=== PATIENT | male | born 1965 | race Caucasian/White ===

== ENCOUNTER → 2020-03-26 10:59 | Outpatient (CLI) | payer OTHER, SELFPAY ==
--- NOTE | ~2020-03-26 | MR_ITS ---
EXAMINATION: MR brain/brain stem wo/w con DATE: 03/26/2020 11:42 INDICATION: Atrophy of bilateral leg muscles. Left foot drop. TECHNIQUE: Magnetic resonance imaging (MRI) of the brain and brainstem was performed without and with 19 mL MultiHance intravenous contrast. Sequences included sagittal and axial T1-weighted FSE, axial diffusion-weighted FS EPI, axial T2*-weighted GRE, axial T2-weighted FLAIR Propeller, and axial T2-we ighted Propeller. Postcontrast sequences included axial and coronal T1-weighted FSE. Apparent diffusi on coefficient (ADC) maps were created. COMPARISON: None. FINDINGS: There are old lacunar infarcts in the bilateral basal ganglia. There is an old infarct invo lving anterior body of corpus callosum. There are scattered areas of nonspecific increased T2-weighte d signal intensity in the cerebral white matter. There is no intracranial hemorrhage, acute infarctio n, or abnormal intracranial mass lesion. There is mild mucosal thickening in the paranasal sinuses. T he orbits are normal. The mastoid air cells are normal. IMPRESSION: 1. 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 2. Mild nonspecific cerebral white matter disease, which likely represents chronic small vessel ische court disease. Reviewed, dictated and finalized at location A. IMPRESSION: 1. Old infarcts involving the bilateral basal ganglia and anterior body of ella us callosum. 2. Mild nonspecific cerebral white matter disease, which likely represents slps albina small vessel ischemic disease.
[2020-03-26 11:22] LABS: Estimated Glomerular Filt Rate 42
== END ==
PROVIDERS: PCP Student in an Organized Health Care Education/Training Program; Visit Provider Student in an Organized Health Care Education/Training Program
DX: M62.562 Muscle wasting and atrophy, not elsewhere classified, left lower leg (principal); G62.9 Polyneuropathy, unspecified; M21.372 Foot drop, left foot; M62.561 Muscle wasting and atrophy, not elsewhere classified, right lower leg; R29.2 Abnormal reflex; Z86.73 Personal history of transient ischemic attack (TIA), and cerebral infarction without residual deficits; R90.82 White matter disease, unspecified
CPT/HCPCS: 70553; A9577

== ENCOUNTER → 2020-07-24 09:54 | Outpatient (CLI) | payer OTHER, SELFPAY ==
--- NOTE | ~2020-07-24 | MR_ITS ---
EXAMINATION: MR lumbar spine wo [facility] EXAM DATE: 07/24/2020 11:09 INDICATION: Low back pain. TECHNIQUE: Multi-sequential, multiplanar MR images of the lumbar spine were obtained without contrast . Sagittal T1, T2, T2 fat saturation images. Axial T2 weighted images. There is no prior study for comparison. FINDINGS: There is mild to moderate disc disease L3-L5. The conus medullaris terminates at the L1/2 l evel and has normal signal intensity and morphology. There are some degenerative endplate signal hernández ges L4-5. There are no suspicious focal vertebral signal abnormalities identified. Paraspinal soft t issue is unremarkable. Level by level evaluation: T12-L1: Disc does not extend beyond the endplate margin. Facet arthropathy: Mild. Neural foraminal stenosis: No stenosis. Central canal stenosis: No stenosis. L1-L2: Disc does not extend beyond the endplate margin. Facet arthropathy: Mild. Neural foraminal stenosis: No stenosis. Central canal stenosis: No stenosis. L2-L3: There is a minimal diffuse disc bulge. Facet arthropathy: Mild to moderate. Neural foraminal stenosis: No stenosis. Central canal stenosis: No stenosis. L3-L4: There is a mild to moderate diffuse disc bulge. Facet arthropathy: Mild to moderate. Neural foraminal stenosis: Mild left. Central canal stenosis: Mild. L4-L5: There is a mild to moderate diffuse disc bulge. Facet arthropathy: Mild to moderate. Neural foraminal stenosis: Mild to moderate bilateral. Central canal stenosis: Mild to moderate. L5-S1: There is a mild diffuse disc bulge. Facet arthropathy: Mild to moderate. Neural foraminal stenosis: Mild bilateral. Central canal stenosis: No stenosis. IMPRESSION: 1. Mild to moderate lumbar spondylosis. Reviewed, dictated and finalized at location B. ING LINE WORKER
--- NOTE | ~2020-07-24 | US_ITS ---
EXAMINATION: US carotid duplex BI DATE: 07/24/2020 11:55 INDICATION: Stroke. Subjective visual disturbance, vertigo, disturbance of skin sensation at the fing ers and lower legs and left hemiparesis. TECHNIQUE: Grayscale, color Doppler, and pulsed Doppler images of the cervical carotid arteries were obtained. The degree of vessel stenosis is placed in one of the following categories: normal, <50%, 5 0-69%, >=70% but less than near-occlusion, near-occlusion, or total occlusion. Note that percent sten osis relative to normal distal artery lumen diameter is indirectly measured from velocity measurement s as described by Tc, et al. Radiology 2003; 229:340-346. COMPARISON: None. FINDINGS: RIGHT: The right common carotid artery (CCA) peak systolic velocity (PSV) is 87 cm/s. The right internal car otid artery (ICA) PSV is 103 cm/s. The right ICA end-diastolic velocity (EDV) is 28 cm/s. The right I CA/CCA PSV ratio is 1.2. Grayscale and color Doppler images yield an estimate of <50% diameter reduct ion from plaque in the ICA. The external carotid artery (ECA) PSV is 93 cm/s. There is antegrade flow in the right vertebral artery. LEFT: The left CCA PSV is 90 cm/s. The left ICA PSV is 121 cm/s. The left ICA EDV is 27 cm/s. The left ICA/ CCA PSV ratio is 1.3. Grayscale and color Doppler images yield an estimate of <50% diameter reduction from plaque in the ICA. The ECA PSV is 80 cm/s. There is antegrade flow in the left vertebral artery . IMPRESSION: 1. <50% stenosis in the right internal carotid artery. 2. <50% stenosis in the left internal carotid artery. Reviewed, dictated and finalized at location A. T PREPARER
--- NOTE | ~2020-07-24 | XR_ITS ---
EXAMINATION: XR shoulder RT min 2V DATE: 07/24/2020 12:13 INDICATION: Right shoulder pain TECHNIQUE: AP internally and externally rotated, AP oblique externally rotated and axillary views of the right shoulder were obtained. COMPARISON: None FINDINGS: Normal alignment. No fracture. Mild right glenohumeral osteoarthritis with minimal nonuniform joint space narrowing and with small marginal osteophytes along the posterior rim of the glenoid. Acromiocl avicular joint space is relatively preserved. There is however loss of the normally more sharply defi kostas articular cortex at the head of the clavicle. 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 1.3 cm sclerotic lesion at the proximal metaphyseal region of the right humerus with location and appearance most consistent with an enchond alfred. Soft tissues are unremarkable. The visualized portions of the lungs are clear. IMPRESSION: Loss of the articular cortical margin of the lateral head of the right clavicle suspicious for distal clavicular osteolysis. Reviewed, dictated and finalized at location A. INVASIVE
--- NOTE | ~2020-07-24 | MR_ITS ---
EXAMINATION: MR cervical spine wo [facility] EXAM DATE: 07/24/2020 11:01 INDICATION: Neck pain neck pain . Left foot drop. TECHNIQUE: Multi-sequential, multiplanar MR images of the cervical spine were obtained without contra st. Axial T2, axial T2 MERGE sequence. Sagittal T1, T2, T2 fat saturation images also obtained. Th ere is no prior study for comparison. FINDINGS: There is mild disc disease C5-7. The vertebral bodies are aligned in the AP dimension. The spinal cord signal intensity and intrinsic morphology is normal. Cervicomedullary junction is normal in appearance. There are no suspicious marrow signal abnormalities. Paraspinal soft tissue is unrema rkable. Level by level evaluation: C2-C3: Disc does not extend beyond the endplate margin. Uncovertebral joint arthropathy: Mild bilateral. Facet joint arthropathy: Mild to moderate left, mild right. Neural foraminal stenosis: Mild left. Central canal stenosis: No stenosis. C3-C4: Disc does not extend beyond the endplate margin. Uncovertebral joint arthropathy: Mild bilateral. Facet joint arthropathy: Mild to moderate bilateral. Neural foraminal stenosis: Mild bilateral. Central canal stenosis: No stenosis. C4-C5: There is a minimal diffuse disc bulge. Uncovertebral joint arthropathy: Mild to moderate. Facet joint arthropathy: Mild to moderate. Neural foraminal stenosis: Mild to moderate. Central canal stenosis: No stenosis. C5-C6: There is a mild diffuse disc bulge. Uncovertebral joint arthropathy: Mild to moderate. Facet joint arthropathy: Moderate left, mild to moderate right. Neural foraminal stenosis: Moderate left, mild to moderate right. Central canal stenosis: Mild. C6-C7: There is a mild diffuse disc bulge. Uncovertebral joint arthropathy: Mild to moderate. Facet joint arthropathy: Mild to moderate. Neural foraminal stenosis: Mild bilateral. Central canal stenosis: Mild. C7-T1: There is a minimal diffuse disc bulge. Uncovertebral joint arthropathy: Mild bilateral. Facet joint arthropathy: Mild to moderate right, mild left. Neural foraminal stenosis: Mild left. Central canal stenosis: No stenosis. IMPRESSION: Mild to moderate cervical spondylosis. Reviewed, dictated and finalized at location B. NICAL MANAGER
== END ==
PROVIDERS: PCP Nurse Practitioner Family; Visit Provider Internal Medicine Rheumatology
DX: M25.512 Pain in left shoulder (principal); M25.511 Pain in right shoulder; M47.815 Spondylosis without myelopathy or radiculopathy, thoracolumbar region; M47.817 Spondylosis without myelopathy or radiculopathy, lumbosacral region; M48.07 Spinal stenosis, lumbosacral region; M47.813 Spondylosis without myelopathy or radiculopathy, cervicothoracic region; M48.03 Spinal stenosis, cervicothoracic region; Z86.73 Personal history of transient ischemic attack (TIA), and cerebral infarction without residual deficits
CPT/HCPCS: 72141; 72148; 73030; 93880

== ENCOUNTER 2020-08-20 11:35 | Inpatient (IN) | payer OTHER, SELFPAY ==
[2020-08-20] VITALS (29 sets, daily range): BP systolic 134–182; BP diastolic 48–89; PULSE 102–129; RESP 18–35; TEMP 37.3–38.1; O2SAT 88–98; BMI 25.9
--- NOTE | ~2020-08-20 | US_ITS ---
EXAMINATION: US venous doppler LE RT DATE: 08/21/2020 09:23 INDICATION: Right lower limb edema. TECHNIQUE: Grayscale ultrasound images without and with compression and Doppler ultrasound images of the right lower extremity veins were obtained. COMPARISON: None. FINDINGS: The visualized portions of right common femoral vein, profunda (deep) femoral vein, femoral vein, pop liteal vein, peroneal veins, posterior tibial veins, and greater saphenous vein outflow are patent. IMPRESSION: 1. No deep venous thrombosis. Reviewed, dictated and finalized at location A. OSIVE OPERATOR BOMB
--- NOTE | ~2020-08-20 | XR_ITS ---
XR chest 1V portable DATE: 08/20/2020 17:37 INDICATION: Fever. Diabetes. Foot wound. Weakness. TECHNIQUE: Portable AP chest on 08/20/2020 at 1729 hours COMPARISON: None FINDINGS: Heart size is normal. No hilar or mediastinal enlargement. No pulmonary infiltrate or conso lidation, pleural effusion or pulmonary vascular congestion or pneumothorax. IMPRESSION: No active cardiopulmonary disease Reviewed, dictated and finalized at location A. VANCE AND APPEALS COORDINATOR
--- NOTE | ~2020-08-20 | US_ITS ---
EXAMINATION: US arterial duplex LE DATE: 08/21/2020 09:23 INDICATION: Bilateral foot ulcers TECHNIQUE: Multiple grayscale and Doppler ultrasound images of the arteries of the bilateral lower li mbs were obtained. COMPARISON: None FINDINGS: Right lower limb: Small amount of nonhemodynamically significant shadowing calcified plaque at the right common femoral artery on grayscale images. There are triphasic waveforms with brisk systolic upstrokes and relative ly smooth laminar flow in the right common femoral, profunda femoral and proximal to mid superficial femoral arteries. In the distal right superficial femoral artery there is a focus of soft plaque with acceleration of flow with peak systolic velocity measuring 187 cm/s immediately proximal to the sten osis and 310 cm/s immediately distal to the stenosis which does not quite reach the threshold velocit y doubling for 50% stenosis. There is more turbulent flow with spectral broadening and transition to monophasic waveforms but still with brisk systolic upstrokes at the right popliteal artery. The right posterior tibial artery appears occluded throughout its course. Monophasic waveforms with brisk syst olic upstrokes in the right dorsalis pedis artery. Left lower limb: Small amount of nonhemodynamically significant plaque at the left common femoral artery. There are bi phasic waveforms with brisk systolic upstrokes in the proximal to mid left superficial femoral artery . Triphasic waveforms with brisk systolic upstrokes throughout the remainder of the left lower limb i ncluding the common femoral, profunda femoral, distal superficial femoral, popliteal, posterior tibia l and dorsalis pedis arteries. IMPRESSION: 1. Focal near 50% stenosis in the distal right superficial femoral artery and occluded right posterio r tibial artery. 2. No hemodynamically significant stenosis in the left lower limb with triphasic waveforms with brisk systolic upstrokes extending distally into the posterior tibial and dorsalis pedis arteries. Reviewed, dictated and finalized at location B. Y TENDER IMPRESSION: 1. Focal near 50% stenosis in the distal right superficial femoral artery and o ccluded right posterior tibial artery. 2. No hemodynamically significant stenosis in the left lower limb with triphasi c waveforms with brisk systolic upstrokes extending distally into the posterior tibial and dorsalis pedis arteries.
--- NOTE | ~2020-08-20 | US_ITS ---
EXAMINATION: US renal BI DATE: 08/21/2020 09:22 INDICATION: Kidney failure. TECHNIQUE: Multiple ultrasound grayscale images of the kidneys were obtained. COMPARISON: Lumbar spine MRI 07/24/2020 FINDINGS: The right kidney measures 13.0 x 5.6 x 7.3 cm. The left kidney measures 12.4 x 6.3 x 6.7 cm. The kidn eys demonstrate normal parenchymal echogenicity. There is no hydronephrosis. The bladder is normal. IMPRESSION: 1. Normal kidneys. No hydronephrosis. Reviewed, dictated and finalized at location A. GHT BRAKE OPERATOR
--- NOTE | ~2020-08-20 | XR_ITS ---
EXAMINATION: XR foot RT min 3V EXAM DATE: 08/20/2020 12:32 INDICATION: Cellulitis. Right foot pain. TECHNIQUE: Right foot dorsoplantar, lateral and oblique projections obtained and reviewed. There is no prior study for comparison. FINDINGS: There is a bandage overlying the lateral aspect of the foot with ulceration. Deep to this, there is demineralization, erosion at the 5th metatarsal base, appearance is consistent with osteomye litis. Also, can't exclude pathological metatarsal base fracture. Phalanges are unremarkable. IMPRESSION: Right 5th metatarsal base osteomyelitis, and possible associated nondisplaced pathologic al fracture. Reviewed, dictated and finalized at location A. ORATE DEVELOPMENT INTERN IMPRESSION: Right 5th metatarsal base osteomyelitis, and possible associated n ondisplaced pathological fracture.
--- NOTE | ~2020-08-20 | US_ITS ---
EXAMINATION: US arterial ankle brachial ind EXAM DATE: 08/20/2020 13:28 INDICATION: Peripheral arterial disease. Macro Arterial Lower TECHNIQUE: Segmental pressures and plethysmographic and Doppler waveforms of the brachial and lower e xtremity arteries were obtained. There is no prior study for comparison. FINDINGS: Right and left brachial artery pressures of 182 mm Hg and 171 mm Hg, respectively, are concordant (no rmal difference <= 30 mmHg). RIGHT LEG: The ankle-brachial index (ELODIA) is 0.99 (normal >= 0.9-1). The great toe-brachial index (TBI) is 0.50 (normal >= 0.65). The lower extremity ratios, segmental pressure gradients as follows; Dorsalis pedis: 0.99 (181 mmHg). Posterior tibial: 0.25 (45 mmHg). (Normal gradients <= 20-30 mmHg between adjacent levels on the same leg or the same levels on the two legs). Arterial waveforms are dampened and monophasic. LEFT LEG: The ankle-brachial index (ELODIA) is could not obtain (normal >= 0.9-1). The great toe-brachial index (TBI) is 1.09 (normal >= 0.65). The lower extremity ratios, segmental pressure gradients as follows; Dorsalis pedis: Could not obtain ( mmHg). Posterior tibial: Could not obtain ( mmHg). (Normal gradients <= 20-30 mmHg between adjacent levels on the same leg or the same levels on the two legs). Arterial waveforms are biphasic. IMPRESSION: 1. Right ankle-brachial index 0.99, normal. Dampened monophasic waveforms. 2. Left ankle-brachial index could not obtain. 3. High blood pressure, systolic up to 182 mmHg. Reviewed, dictated and finalized at location [facility]. [facility]
[2020-08-20 11:42] LABS: Glucose Point of Care > 500 (65-105)
--- NOTE | 2020-08-20 12:13 | ED.WEAKNESS ---
HPI - Weakness General Chief complaint: Weakness Stated complaint: WEAK [id number] Time Seen by Provider: 08/20/20 11:55 Source: patient Mode of arrival: ambulatory Limitations: clinical condition History of Present Illness HPI Narrative: 55-year-old male History of type 2 diabetes which he says he has been taking his medication for Complains of a 10 to 14-day history of generalized weakness Initially he reported a fever but that has been resolved for a while; he had a neg covid test Generalized weakness has been persistent and progressive however Additionally he has swelling and redness of his right foot which he notes began at about the same time with a blister and likewise has worsened; strangely he does not complain very much about pain in the foot He has had polyuria and polydipsia but a poor appetite He has had diarrhea MD Complaint: generalized weakness Onset (ago): day(s) Duration: progressively worsening Associated symptoms: fever/chills Related Data Allergies Allergy/AdvReac Type Severity Reaction Status Date / Time No Known Allergies Allergy Mild Verified 01/12/08 02:10 Review of Systems Review of Systems: All systems reviewed & are unremarkable except as noted in HPI and below Constitutional: Constitutional: Reports chills, Reports fatigue, Reports fever(s), Denies headache(s) and Reports weakness Eyes: Eyes: Reports no additional eye complaints and Denies change in vision ENT: Denies headache(s), Denies epistaxis, Denies nasal congestion and Denies sore throat Cardiovascular: Cardiovascular: Denies chest pain, Denies leg edema, Denies palpitations and Denies dyspnea Respiratory: Respiratory: Denies cough, Denies dyspnea and Denies wheezing Gastrointestinal: Gastrointestinal: Denies abdominal pain, Reports diarrhea, Reports nausea and Denies vomiting Genitourinary: Genitourinary: Denies hematuria, Denies dysuria and Denies urinary frequency Musculoskeletal: Musculoskeletal: Denies deformity, Reports arthralgias, Reports joint swelling, Denies muscle weakness and Denies numbness Integumentary/Breasts: Skin/Breast: Denies rash and Denies wounds Neurologic: Denies headache(s), Denies focal weakness and Denies numbness Psychiatric: Psychiatric: Reports no additional psychiatric complaints Endocrine: Endocrine: Reports fatigue and Denies palpitations Hematologic/Lymphatic: Hematologic/Lymphatic: Denies easy bleeding and Denies easy bruising Allergic/Immunologic: Allergic/Immunologic: Denies wheezing PMFSH Past Medical History Medical History (Updated 08/20/20 @ 16:19 by Joesph Lam MD) Arthritis of right knee Diabetes History of cardiac disorder Hypertension Testicular cyst Removed in the early Family History Family History Mother Colon cancer Father Diabetes mellitus ALS (amyotrophic lateral sclerosis) Social History Social History Smoking status: Former smoker Alcohol intake: current Drinks per week: 5 Substance use: never Gender identity (if verbalized by the patient): Male Exam Const: General: well developed, awake and ill appearing Nutritional Appearance: well nourished Orientation/consciousness: patient oriented x3 (alert) Limitations: no limitations HENMT: Head: normocephalic and atraumatic Ears: external ears normal General nose exam: No nasal discharge present and no epistaxis Face and sinus: face symmetric Eyes: Conjunctivae: conjunctivae normal Sclera: sclerae normal EOM: EOMs intact bilaterally Neck: Neck: normal visual inspection, supple and no JVD Chest: Chest palpation & inspection: deferred Resp: Effort & Inspection: normal respiratory effort Auscultation: clear to auscultation bilaterally, no rales, no rhonchi, no wheezes and other (BS =) Cardio: Rate: regular rate and tachycardic Rhythm: regular rhythm Hear
[2020-08-20] MEDS: LACTATED RINGERS 1,000 ML 999 ML IV CONT ×3 (12:17→15:10)
--- NOTE | 2020-08-20 12:20 | PC.NURSE ---
Able to dopple faint pedal pulse to right foot. Wound covered with ADDISON wilson.
[2020-08-20 12:43] LABS: Fractional Inspired Oxygen 21 %; HCO3 VBG 17.7 mEq/l (24.0-30.0); PO2 VBG 45.4 mmHg (35.0-45.0); pH VBG 7.421 (7.300-7.400)
[2020-08-20 12:46] LABS: Hemoglobin 7.9 g/dL (14.0-18.0); Mean Corpuscular HGB Conc 34.3 g/dl (32-36); Mean Corpuscular Hemoglobin 31.2 pg (26-34); Mean Corpuscular Volume 90.9 fl (80-100); Platelet Count Result 426 k/mm3 (150-375); Red Blood Count 2.53 M/mm3 (4.6-6.20); Red Cell Distribution Width 12.3 % (11.5-14.5); White Blood Count 26.2 K/mm3 (4.5-10.0)
[2020-08-20 12:46] LABS: Device ROOM AIR; PCO2 VBG 27.8 mmHg (42.0-48.0)
[2020-08-20] MEDS: ONDANSETRON INJ 4 MG/2 ML VIAL IV PUSH (12:46)
--- NOTE | 2020-08-20 12:46 | PC.NURSE ---
Blood cultures being obtained.
[2020-08-20 12:59] LABS: Lymphocytes Absolute Manual 0.78 K/mm3 (1.1-4.5); Monocytes Absolute Manual 0.78 K/mm3 (0.1-0.90); Monocytes Percent Manual 3 % (3-9); Neutrophils Percent Manual 94 % (46-73); Platelet Estimate Adequate (Adequate); Total Cells Counted 100
[2020-08-20 13:05] LABS: Alanine Aminotransferase 48 U/L (4-50); Albumin Level 3.4 g/dL (3.5-5.1); Alkaline Phosphatase 142 U/L (38-126); Anion Gap 13 mmol/L (8-16); Aspartate Amino Transferase 38 U/L (17-59); Bilirubin,Total 1.3 mg/dL (0.2-1.3); Blood Urea Nitrogen 30 mg/dL (9-20); CRP > 9.0 mg/dL (<1.0); Calcium 8.4 mg/dL (8.4-10.2); Carbon Dioxide 19 mmol/L (22-30); Chloride 89 mmol/L (98-107); Estimated CRCL calculation 54 ml/min; Estimated Glomerular Filt Rate 45; Glucose 597 mg/dL (75-110); Potassium 5.7 mmol/L (3.4-5.0); Sodium 121 mmol/L (137-145)
--- NOTE | 2020-08-20 13:08 | PC.NURSE ---
Pt to ultrasound via stretcher.
[2020-08-20 13:09] LABS: Beta-Hydroxybutyrate/Acetoacetate 2.39 mmol/L (0.02-0.27)
[2020-08-20 13:12] LABS: Troponin I 0.027 ng/mL (0.000-0.034)
[2020-08-20 13:13] LABS: Lactic Acid Reflex 1.8 mmol/L (0.7-2.1)
[2020-08-20 13:53] LABS: Erythrocyte Sedimentation Rate > 140 mm/hr (0-20)
[2020-08-20 14:12] LABS: Add Urine Microscopic? YES; Appearance Urine Clear (Clear); Bacteria Urine Trace /hpf; Bilirubin Urine Negative (Negative); Blood Urine 1+ (Negative); Color Urine Yellow (Yellow); Glucose Urine UA 3+ mg/dL (Negative); Ketones Urine 1+ mg/dL (Negative); Leukocyte Esterase Ur Negative LEU/UL (Negative); Mucus Urine Rare /lpf; Nitrate Urine Negative (Negative); Protein Urine 3+ mg/dL (Negative); RBC Urine 0-2 /hpf (0-2); Squamous Epithelial Cell Urine Rare /hpf (Few); Urobilinogen Urine Negative mg/dL (<2.0); WBC Urine 0-3 /hpf
[2020-08-20 14:26] LABS: Glucose Point of Care > 500 (65-105)
[2020-08-20] MEDS: INSULIN HUMAN REGULAR (*BKC) 100 UNITS/ML 10 UNITS IV PUSH (15:07)
[2020-08-20 16:19] LABS: Glucose Point of Care 460 (65-105)
--- NOTE | 2020-08-20 16:30 | PM.IMHP ---
H&P: HPI History of Present Illness Date/Time: 08/20/20 16:30 Chief Complaint: Weakness and right foot wound. Narrative: This is a 55-year-old male with diabetes, hypertension, chronic kidney disease, and anemia who presented to the emergency department earlier today via private vehicle from home for evaluation of weakness as well as a right foot wound. He has not felt well for 10 days with generalized malaise, decreased energy, decreased appetite, nausea, diarrhea, and fever up to 101.5?. Over the last week or so he noticed a blister on the lateral aspect of the right forefoot, which he thinks that he got from his shoes rubbing while working out at the gym. It has since popped and the area is now discolored and he has had malodorous drainage. He has also noticed a large bruise on his right 5th toe. He has not been experiencing any pain at the side of these wounds due to severe neuropathy. He has no prior history of diabetic foot wounds and also denies history of osteomyelitis and multidrug resistant organisms. No sinus congestion, rhinorrhea, otalgia, or odynophagia, or cough. No known history of peripheral vascular disease but it does sound as though he has intermittent claudication. Review of Systems Review of Systems: Narrative: Twelve systems were reviewed with pertinent positives and negatives as per HPI. No vertigo. He denies syncope in near-syncope. He has chronic left footdrop for which he did see a neurologist in [place] though never received any answers. He apparently had an MRI of his low back which showed nothing. 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 He denies blurry vision but has had some polydipsia. He has not noticed any significant change in urine output. No dysuria. Except as documented, all other systems were reviewed and are negative. [facility] Past Medical History Medical History (Updated 08/20/20 @ 23:38 by Sharee Graff PA-C) Arthritis of right knee Chronic anemia Chronic kidney disease History of colon polyps Hypertension Left foot drop Peripheral neuropathy Transient ischemic attack Type 2 diabetes mellitus Surgical History Surgical History (Updated 08/20/20 @ 23:31 by Sharee Graff PA-C) History of testicular surgery Benign mass removed from the right testicle. Family History Family History (Updated 08/20/20 @ 23:32 by Sharee Graff PA-C) Mother Colon cancer Father Diabetes mellitus ALS (amyotrophic lateral sclerosis) Acute myocardial infarction Daughter Pulmonary embolism Social History Social History (Updated 08/20/20 @ 23:33 by Sharee Graff PA-C) Social History: The patient lives alone in [place]. He has 1 daughter who lives in [place]. 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 Smoked 1.5 to 2 packs of cigarettes a day for about 38 years and quit in 2014. He drinks perhaps for alcoholic beverages a week. No illicit substance use. He designates his sister Elle Vann as his surrogate decision maker and he wishes to be a full code. Smoking packs per day: 1.5 Smoking cigarettes per day: 30.0 Years smoked: 25 Smoking pack-years: 37.50 Smoking status: Former smoker Tobacco type: cigarettes Smoking end date: 02/23/15 Alcohol intake: current Drinks per week: 4 Substance use: never Gender identity (if verbalized by the patient): Male Spiritual care concerns: No Meds Home Medications and Allergies Home Medications Medication Instructions Recorded Confirmed Type glipizide 10 mg PO DAILY 08/20/20 08/20/20 History hydrochlorothiazide 12.5 mg PO DAILY 08/20/20 08/20/20 History losartan 50 mg PO DAILY 08/20/20 08/20/20 History losartan 100 mg PO BID 08/20/20 08/20/20 History metformin 500 mg PO DAILY 08/20/20 08/20/20 History Allergies Allergy/AdvReac Type Severity Reaction Status Date / Time No Known Allergies Allergy
[2020-08-20 16:32] LABS: Anion Gap 7 mmol/L (8-16); Blood Urea Nitrogen 26 mg/dL (9-20); Carbon Dioxide 25 mmol/L (22-30); Chloride 90 mmol/L (98-107); Estimated CRCL calculation 54 ml/min; Estimated Glomerular Filt Rate 45; Glucose 494 mg/dL (75-110); Sodium 122 mmol/L (137-145)
[2020-08-20 17:30] LABS: Glucose Point of Care 486 (65-105)
--- NOTE | 2020-08-20 17:41 | PC.NURSE ---
Nathaly Graff aware of pt's blood sugar of 486. Gives verbal order for 10units novolog subcutaneous and to hold the regular insulin ivp at this time. Diet tray ordered for patient.
[2020-08-20] MEDS: SODIUM CHLORIDE 0.9% IV 1,000 ML 150 ML IV CONT (17:57)
--- NOTE | 2020-08-20 17:58 | PC.NURSE ---
Awaitiing arrival of diabetic tray prior to giving sub q insulin. JAVIER Andersen, aware of pt's temperature.
[2020-08-20] MEDS: INSULIN ASPART (*BKC) 100 UNITS/ML 10 UNITS SUB-Q (18:10)
--- NOTE | 2020-08-20 18:30 | PC.NURSE ---
Pt given dinner tray and novolog insulin as ordered. Awaiting bed assignment.
--- NOTE | 2020-08-20 18:49 | PC.NURSE ---
Bed assignment received, SBAR faxed.
--- NOTE | 2020-08-20 19:03 | PC.NURSE ---
Dr. Lam at bedside discussing plan of care.
--- NOTE | 2020-08-20 19:22 | PC.NURSE ---
JAVIER Luz at bedside for assessment.
--- NOTE | 2020-08-20 19:56 | ADMGEN ---
This patient, Handy Potts, was admitted to IMU Room 206-02, pt arrived at approximately 1954. Patient/family oriented to hospital policies and general routines including ID bracelet, bed and alarms, visiting hours, pain management, procedures, bathroom and other care routines, personal items, smoking policy, room service/diet, and visiting hours. Information on how to activate the Rapid Response Team has been discussed. Patient/Family are encouraged to report perceived risks to care and to ask questions if they do not understand what they are told or what they should do. Received report from ADEEL Cervantes.
[2020-08-20 20:57] LABS: Glucose Point of Care 469 (65-105)
[2020-08-21] VITALS (16 sets, daily range): BP systolic 125–156; BP diastolic 56–71; PULSE 90–115; RESP 18–26; TEMP 36.1–37.7; O2SAT 97–100; BMI 26.0
[2020-08-21 00:03] LABS: INR 1.4; Immature Reticulocyte Fraction 20.9 % (3.0-15.9); Prothrombin Time 17.7 Seconds (11.1-14.7); Reticulocyte Hemoglobin Conten 28.1 pg (28.2-35.7); Reticulocyte Percent 1.54 % (0.7-4.3); Reticulocytes Absolute 0.03 B/L (32.2-175.7)
[2020-08-21 00:04] LABS: Partial Thromboplastin Time 35.9 SECONDS (22.3-36.8)
[2020-08-21 00:13] LABS: Anion Gap 5 mmol/L (8-16); Blood Urea Nitrogen 29 mg/dL (9-20); Calcium 7.8 mg/dL (8.4-10.2); Carbon Dioxide 27 mmol/L (22-30); Chloride 90 mmol/L (98-107); Creatine Kinase 169 U/L (55-170); Estimated CRCL calculation 51 ml/min; Estimated Glomerular Filt Rate 42; Glucose 419 mg/dL (75-110); Potassium 5.6 mmol/L (3.4-5.0); Sodium 122 mmol/L (137-145)
[2020-08-21 00:49] LABS: Hemoglobin A1C 9.3 % (<5.7)
[2020-08-21 01:20] LABS: Folic Acid 18.1 ng/mL (2.76->20)
[2020-08-21] MEDS: SODIUM CHLORIDE 0.9% IV 1,000 ML 150 ML IV CONT ×2 (01:28→08:05)
[2020-08-21 05:18] LABS: Anion Gap 6 mmol/L (8-16); Blood Urea Nitrogen 27 mg/dL (9-20); Calcium 7.5 mg/dL (8.4-10.2); Carbon Dioxide 27 mmol/L (22-30); Chloride 89 mmol/L (98-107); Estimated CRCL calculation 51 ml/min; Estimated Glomerular Filt Rate 42; Glucose 430 mg/dL (75-110); Magnesium 1.7 mg/dL (1.6-2.3); Potassium 5.5 mmol/L (3.4-5.0); Sodium 122 mmol/L (137-145)
[2020-08-21 05:19] LABS: Basophils Absolute Auto 0.1 K/mm3 (0.0-0.1); Basophils Percent Auto 0.2 % (0.2-1.2); Eosinophils Percent Auto 0.1 % (0-4.4); Immature Granulocyte Absolute 0.45 K/mm3 (0.00-0.031); Immature Granulocyte Percent A 2.2 % (0-0.5); Lymphocytes Absolute Auto 0.77 K/mm3 (0.9-3.2); Lymphocytes Percent Auto 3.8 % (18.3-44.2); Mean Corpuscular HGB Conc 33.5 g/dl (32-36); Mean Corpuscular Hemoglobin 31.1 pg (26-34); Mean Corpuscular Volume 92.9 fl (80-100); Mean Platelet Volume 9.7 fl (7.4-10.4); Monocytes Absolute Auto 1.1 K/mm3 (0.1-0.6); Monocytes Percent Auto 5.4 % (2.6-8.5); Neutrophils Percent Auto 88.3 % (45.5-73.1); Platelet Count Result 388 k/mm3 (150-375); Red Blood Count 2.12 M/mm3 (4.6-6.20); Red Cell Distribution Width 12.6 % (11.5-14.5); White Blood Count 20.4 K/mm3 (4.5-10.0)
[2020-08-21 06:40] LABS: Hemoglobin 6.6 g/dL (14.0-18.0)
[2020-08-21 06:41] LABS: Hematocrit 19.7 % (42.0-52.0)
[2020-08-21 07:33] LABS: Iron 16 ug/dL (49-181)
[2020-08-21 07:51] LABS: Percent Iron Saturation 10 % (20-50)
--- NOTE | 2020-08-21 08:21 | PM.CNCAR ---
Assessment and Plan Assessment and plan (1) Diabetic foot infection: Code(s): E11.628 - Type 2 diabetes mellitus with other skin complications; L08.9 - Local infection of the skin and subcutaneous tissue, unspecified Status: Acute Assessment and Plan: ELODIA is normal and his ulcer is likely diabetic with neuropathy. Will obtain arterial duplex to confirm no significant PVD He has gangrene of the toe as well. Will get 2D echo to rule out embolic source. No history of A fib and he is currently in sinus rhythm (2) Sepsis: Code(s): A41.9 - Sepsis, unspecified organism Status: Acute (3) Diabetes: Code(s): E11.9 - Type 2 diabetes mellitus without complications Status: Acute History of Present Illness History of Present Illness Consult date/time: 08/21/20 08:21 55-y/o male with h/o HTN, DM, CKD who presented with right foot wound. He noticed a blister on the lateral aspect of the right forefoot and the area is now discolored and he has had malodorous drainage. in ER he was found to be septic with fever and leukocytosis. He was started on imperic Abx and received IV fluids. He also has gangrenous changes on the right 5th toe. He does not remember when that started. Xray shows osteomyelitis of the toe. We are consulted for evaluation of PVD as potential cause of ulcer. He had normal ELODIA on the right side. Patient denies any cardiac history. He was evaluated at [facility] ~2018 with stress test that was abnormal however subsequent [facility] per patient report was normal and no stents were placed. He has known peripheral neuropathy. He denies chest pain or dyspnea. No EKG in chart. He is on sinus rhythm on tele Denies tobacco abuse. Reason For Visit: uncontrolled diabetes, diabetic foot ulcer, Review of Systems Review of Systems: All systems reviewed & are unremarkable except as noted in HPI and below PMFSH Past Medical History Medical History (Updated 08/21/20 @ 08:51 by Roman Bruner MD) Arthritis of right knee Chronic anemia Chronic kidney disease History of colon polyps Hypertension Left foot drop Peripheral neuropathy Transient ischemic attack Type 2 diabetes mellitus Surgical History Surgical History (Updated 08/20/20 @ 23:31 by Sharee Graff PA-C) History of testicular surgery Benign mass removed from the right testicle. Family History Family History (Updated 08/20/20 @ 23:32 by Sharee Graff PA-C) Mother Colon cancer Father Diabetes mellitus ALS (amyotrophic lateral sclerosis) Acute myocardial infarction Daughter Pulmonary embolism Social History Social History (Updated 08/20/20 @ 23:33 by Sharee Graff PA-C) Social History: The patient lives alone in [place]. He has 1 daughter who lives in [place]. 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 Smoked 1.5 to 2 packs of cigarettes a day for about 38 years and quit in 2014. He drinks perhaps for alcoholic beverages a week. No illicit substance use. He designates his sister Elle Vann as his surrogate decision maker and he wishes to be a full code. Smoking packs per day: 1.5 Smoking cigarettes per day: 30.0 Years smoked: 25 Smoking pack-years: 37.50 Smoking status: Former smoker Tobacco type: cigarettes Smoking end date: 02/23/15 Alcohol intake: current Drinks per week: 4 Substance use: never Gender identity (if verbalized by the patient): Male Spiritual care concerns: No Meds Home Medications and Allergies Home Medications Medication Instructions Recorded Confirmed Type glipizide 10 mg PO DAILY 08/20/20 08/20/20 History hydrochlorothiazide 12.5 mg PO DAILY 08/20/20 08/20/20 History losartan 50 mg PO DAILY 08/20/20 08/20/20 History losartan 100 mg PO BID 08/20/20 08/20/20 History metformin 500 mg PO DAILY 08/20/20 08/20/20 History Allergies Allergy/AdvReac Type Severity Reaction Status Date / Time No Known Allergies Allergy Mild Verified
--- NOTE | 2020-08-21 08:43 | ECHO_ITS ---
Patient Info Name: Handy Potts Age: 55 years : 1965 Gender: Male Ht: 74 in Wt: 203 lbs BSA: 2.20 m2 HR: 96 bpm BP: 145 / 62 mmHg Heart Rhythm: Sinus Rhythm Technical Quality: Good Exam Date: 08/21/2020 11:44 AM Exam Location: [facility] Patient Status: Inpatient Admit Date: 08/20/2020 Staff Ordering Physician: Roman Bruner MD (trey/ting) Fire Marshal: Esau Paulson RDCS Attending Provider: Thaddeus Yarbrough MD Exam Type: CA echo dop color flow w con Study Info Indications R65.21 - Severe sepsis with septic shock Complete two-dimensional, color flow and Doppler transthoracic echocardiogram is performed with contrast to opacify the left ventricle and to improve the deliniation of the left ventricle endocardial borders. Contrast/Agitated Saline Contrast/Ag. Saline: Definity Amount: 2.00 ml Administered By: Rose Marie Johnson RN Existing IV Access: Yes History/Risk Factors Sepsis; uncontrolled DM w/ diabetic foot ulcer, HTN. Summary 1. Technically difficult study with limited views. 2. Left ventricular chamber dimension is normal. 3. Left ventricular wall thickness is mildly increased. 4. Left ventricular systolic function is normal with an ejection fraction by Biplane Method of Discs of 51 %. 5. There is trivial pericardial effusion. Left Ventricle Left ventricular chamber dimension is normal. Left ventricular wall thickness is mildly increased. Left ventricular systolic function is normal with an ejection fraction by Biplane Method of Discs of 51 %. Normal diastolic function for age. Right Ventricle Right ventricular chamber dimension is normal. Right ventricular systolic function is normal. Ventricular Septum Intact interventricular septum visualized by 2D imaging. Left Atria Left atrial chamber dimension is mildly enlarged. Right Atria Right atrial chamber dimension is normal. Aortic Valve Aortic valve is not well visualized. There is mild aortic valve sclerosis. There is no aortic valve stenosis. There is no aortic valve regurgitation. Pulmonic Valve Pulmonary valve is not well visualized. There is no pulmonic valve stenosis. There is trace pulmonic regurgitation. Mitral Valve Mitral valve is not well visualized. There is mild mitral valve regurgitation. There is no mitral valve stenosis. The mitral valve has thickened leaflets. Tricuspid Valve The tricuspid valve is not well visualized. There is no significant tricuspid valve stenosis. There is trace tricuspid valve regurgitation. Pericardium/Pleural There is trivial pericardial effusion. Inferior Vena Cava Normal inferior vena cava with >50% collapse upon inspiration consistent with normal right atrial pressure, 5 mmHg. Aorta The aortic root size at the sinus of Valsalva is normal. Left Ventricular Outflow Tract Name Value Normal LVOT 2D LVOT Diameter 2.10 cm LVOT Doppler LVOT Peak Gradient 4 mmHg LVOT Mean Gradient 2 mmHg LVOT VTI
[2020-08-21 08:56] LABS: Glucose Point of Care 439 (65-105)
[2020-08-21] MEDS: SODIUM POLYSTYRENE SULFONONATE 15 GM/60 ML BTL PO (10:18)
[2020-08-21] MEDS: INSULIN GLARGINE (*BKC) 100 UNITS/ML 25 UNITS SUB-Q (10:24)
[2020-08-21] MEDS: INSULIN ASPART (*BKC) 100 UNITS/ML SUB-Q ×2 (10:25→10:33)
[2020-08-21] MEDS: SODIUM CHLORIDE 0.9% IV 250 ML 30 ML IV CONT (11:10)
[2020-08-21] MEDS: PERFLUTREN LIPID MICROSPHERES 1.5 ML VIAL DILUTED TO 10 ML TOTAL VOLUME IV PUSH (12:00)
[2020-08-21 13:28] LABS: Glucose Point of Care > 500 (65-105)
[2020-08-21] MEDS: TUBING, BLOOD PLUM PUMP TUBING 1 EACH XX (14:06)
[2020-08-21] MEDS: INSULIN ASPART (*BKC) 100 UNITS/ML 25 UNITS SUB-Q (14:11)
[2020-08-21] MEDS: INSULIN HUMAN REGULAR (*BKC) 100 UNITS/ML 10 UNITS IV PUSH (14:11)
--- NOTE | 2020-08-21 14:13 | PCNSR ---
On 08/21/20, the student, Chelle Quintero, provided care and completed [id number] documentation on this patient. I have reviewed the student's documentation and agree with the findings.
--- NOTE | 2020-08-21 14:27 | PM.CNGS ---
Assessment and Plan Assessment and plan (1) Osteomyelitis of fifth toe of right foot: Code(s): M86.9 - Osteomyelitis, unspecified Status: Acute Assessment and Plan: The patient presents with an infected right diabetic foot ulcer and evidence of osteomyelitis in the right 5th metatarsal base. This appears to be the source of his sepsis. There is also mention of possible associated nondisplaced pathological fracture on the right foot x-ray, and he has evidence of gangrene of the right 5th toe. On exam, he does appear to have peripheral vascular disease, which is supported by the arterial duplex study. There is focal near 50% stenosis in the distal right superficial femoral artery and occluded right posterior tibial artery. He does not have acute limb ischemia, but with his peripheral arterial disease, he would benefit from vascular evaluation prior to proceeding with debridement. I spoke with the Hospitalist regarding consulting with the Vascular Surgery team at [facility] to get their recommendations on how to proceed with his care. If they are willing to accept the patient in transfer, then we would recommend transferring the patient where he could be seen by both vascular surgery and orthopedic surgery if needed. He may require vascular intervention prior to debridement to allow the patient the best chance for healing. That being said, if they do not accept the transfer, then we will plan on moving forward with excisional debridement of the right foot ulcer for source control. I discussed this plan with the patient and he is agreeable to this. We would recommend to continue broad-spectrum IV antibiotics and IV fluids while awaiting vascular's opinion. Will get a wound culture since this has not yet been done. We have consulted the wound care nurses to evaluate the patient for local wound care while awaiting possible transfer. We will continue to follow along and be happy to proceed with intervention if the patient will be staying at [facility] for further care. (2) Diabetic foot infection: Code(s): E11.628 - Type 2 diabetes mellitus with other skin complications; L08.9 - Local infection of the skin and subcutaneous tissue, unspecified Status: Acute Assessment and Plan: The plan above. (3) Uncontrolled diabetes mellitus: Code(s): E11.65 - Type 2 diabetes mellitus with hyperglycemia Status: Acute Assessment and Plan: Blood glucose this morning remains in the 400's. Hgb A1C 9.3. Glycemic control imperative to termination clerk wound healing. Managment per Hospitalist. (4) Peripheral vascular disease: Code(s): I73.9 - Peripheral vascular disease, unspecified Status: Acute Assessment and Plan: ELODIA's showed right ankle-brachial index 0.99 with dampened monophasic waveforms. Left ankle-brachial index could not obtain. Arterial duplex study showed focal near 50% stenosis in the distal right superficial femoral artery and occluded right posterior tibial artery. No hemodynamically significant stenosis in the left lower limb with triphasic waveforms with brisk systolic upstroke extending distally into the posterior tibial and dorsalis pedis arteries. The patient has evidence of peripheral vascular disease and would benefit from evaluation from a vascular surgeon. See plan above. (5) Sepsis: Code(s): A41.9 - Sepsis, unspecified organism Status: Acute Assessment and Plan: Sepsis criteria met on admission with tachycardia, fever, and leukocytosis. Source appears to be the infected right diabetic foot ulcer with osteomyelitis of the 5th metatarsal. Blood cultures pending. I have ordered a wound culture. Continue broad-spectrum IV antibiotics. See plan above regarding source control. Continue to monitor labs. (6) Hyponatremia: Code(s): E87.1 - Hypo-osmolality and hyponatremia Status: Acute Assessment and Plan: Sodium 122. Patient is severely dehydrated and receiving
--- NOTE | 2020-08-21 15:21 | PM.IMPN ---
Progress Note: A&P Assessment and Plan (1) Sepsis: Code(s): A41.9 - Sepsis, unspecified organism Status: Acute Assessment and Plan: Secondary to diabetic infected foot. Blood cultures preliminary are growing g positive cocci and patient on vancomycin and imipenem . General surgery has seen but reluctant to debride because feel he needs vascular intervention Contacted vascular surgery at [facility] and they will be happy to consult on the patient if he is on the medical service. Hospitalist at [facility] did except for transfer (2) Diabetic foot infection: Code(s): E11.628 - Type 2 diabetes mellitus with other skin complications; L08.9 - Local infection of the skin and subcutaneous tissue, unspecified Status: Acute Assessment and Plan: As above. Continue vancomycin and imipenem and pending final cultures (3) Peripheral vascular disease: Code(s): I73.9 - Peripheral vascular disease, unspecified Status: Acute Assessment and Plan: ELODIA on the right was 0.99 but vascular Doppler revealed 100% occlusion of posterior tibial and 50% superficial femoral on the right Not a vascular emergency since foot is still warm and has Doppler pulses, but will transfer to service that has access to vascular intervention (4) Type 2 diabetes mellitus with hyperglycemia: Code(s): E11.65 - Type 2 diabetes mellitus with hyperglycemia Status: Acute Assessment and Plan: Blood sugar continues to run high with normal gap and CO2 of 27. Started Lantus this a.m. and sliding scale to help better control sugar. (5) Dehydration: Code(s): E86.0 - Dehydration Status: Acute (6) Hyponatremia: Code(s): E87.1 - Hypo-osmolality and hyponatremia Status: Acute Assessment and Plan: Probably most pseudo hyponatremia with elevated blood sugar. Hydrate and correct elevated sugar Hold oral hypoglycemic agents (7) Chronic kidney disease: Code(s): N18.9 - Chronic kidney disease, unspecified Status: Inactive Assessment and Plan: No baseline creatinine but suspect chronic kidney disease. Renal sonogram no obstruction (8) Chronic anemia: Code(s): D64.9 - Anemia, unspecified Status: Inactive Assessment and Plan: Iron studies and ferritin compatible with anemia of chronic disease, normal B12, Transfuse to keep hemoglobin above 7 (9) DVT prophylaxis: Code(s): Z29.9 - Encounter for prophylactic measures, unspecified Status: Acute Assessment and Plan: Lovenox Subjective Date/time seen: 08/21/20 15:21 Interval history: Date of visit 08/21. 55-year-old hypertensive type 2 diabetic admitted with sepsis and infected diabetic right foot with ischemia of right 5th toe. Still feels poorly with discomfort in the foot. Arterial Doppler today revealed occluded posterior tibial artery with 50% superficial femoral obstruction on the right. Blood cultures have returned positive on preliminary and white count remains elevated although afebrile and hemodynamically stable. Exam Narrative: Exam Narrative: Blood pressure 142/66 pulse is 92 and regular saturating 99% on room air respirations 16 per minute temp 37? to General: Moderately ill-appearing male in no acute distress lying in bed. . HEENT: Normocephalic,. PERRL, EOMI. Sclerae anicteric. Neck: Supple. No JVD. Respiratory: Lungs are clear to auscultation bilaterally. Cardiovascular: Tachycardic with S1-S2. And no murmurs heard Gastrointestinal: Abdomen is soft, nontender, and with positive bowel sounds. Skin: Warm and dry. He has a necrotic wound on the right lateral forefoot measuring at least 6 cm in length. The tissue is soft and able to probe to bone. The wound is malodorous. He has little sensation in this area. There is surrounding erythema and edema up to the distal orantes. The right 5th toe is purple with a shallow ulceration at the base.
[2020-08-21 17:09] LABS: Glucose Point of Care 352 (65-105)
[2020-08-21 17:18] LABS: Hematocrit 22.9 % (42.0-52.0); Hemoglobin 7.6 g/dL (14.0-18.0); Mean Corpuscular HGB Conc 33.2 g/dl (32-36); Mean Corpuscular Hemoglobin 30.5 pg (26-34); Mean Platelet Volume 9.2 fl (7.4-10.4); Platelet Count Result 372 k/mm3 (150-375); Red Blood Count 2.49 M/mm3 (4.6-6.20); Red Cell Distribution Width 13.1 % (11.5-14.5); White Blood Count 19.1 K/mm3 (4.5-10.0)
[2020-08-21] MEDS: INSULIN ASPART (*BKC) 100 UNITS/ML 20 UNITS SUB-Q (17:27)
[2020-08-21 17:30] LABS: Anion Gap 6 mmol/L (8-16); Blood Urea Nitrogen 28 mg/dL (9-20); Calcium 7.7 mg/dL (8.4-10.2); Carbon Dioxide 27 mmol/L (22-30); Chloride 92 mmol/L (98-107); Estimated CRCL calculation 58 ml/min; Estimated Glomerular Filt Rate 48; Glucose 312 mg/dL (75-110); Potassium 4.8 mmol/L (3.4-5.0); Sodium 125 mmol/L (137-145)
[2020-08-21] MEDS: ENOXAPARIN 40 MG/0.4 ML SYRINGE SUB-Q (18:57)
[2020-08-21] MEDS: SODIUM CHLORIDE 0.9% IV 1,000 ML 100 ML IV CONT (20:09)
[2020-08-21 20:10] LABS: Glucose Point of Care 263 (65-105)
[2020-08-22] VITALS (7 sets, daily range): BP systolic 131–150; BP diastolic 61–71; PULSE 83–100; RESP 12–20; TEMP 36.6–37.3; O2SAT 98–100
[2020-08-22] MEDS: SODIUM CHLORIDE 0.9% IV 1,000 ML 100 ML IV CONT ×3 (01:15→23:48)
[2020-08-22 05:03] LABS: Basophils Percent Auto 0.2 % (0.2-1.2); Eosinophils Absolute Auto 0.2 K/mm3 (0-0.3); Eosinophils Percent Auto 1.1 % (0-4.4); Hematocrit 23.1 % (42.0-52.0); Hemoglobin 7.6 g/dL (14.0-18.0); Immature Granulocyte Absolute 0.25 K/mm3 (0.00-0.031); Immature Granulocyte Percent A 1.6 % (0-0.5); Lymphocytes Absolute Auto 1.02 K/mm3 (0.9-3.2); Lymphocytes Percent Auto 6.3 % (18.3-44.2); Mean Corpuscular HGB Conc 32.9 g/dl (32-36); Mean Corpuscular Hemoglobin 30.4 pg (26-34); Mean Corpuscular Volume 92.4 fl (80-100); Mean Platelet Volume 9.5 fl (7.4-10.4); Monocytes Percent Auto 5.9 % (2.6-8.5); Neutrophils Absolute Auto 13.7 K/mm3 (1.3-6.7); Neutrophils Percent Auto 84.9 % (45.5-73.1); Platelet Count Result 379 k/mm3 (150-375); Red Cell Distribution Width 13.2 % (11.5-14.5); White Blood Count 16.1 K/mm3 (4.5-10.0)
[2020-08-22 05:24] LABS: Anion Gap 1 mmol/L (8-16); Blood Urea Nitrogen 27 mg/dL (9-20); Calcium 7.4 mg/dL (8.4-10.2); Carbon Dioxide 29 mmol/L (22-30); Chloride 97 mmol/L (98-107); Estimated CRCL calculation 62 ml/min; Estimated Glomerular Filt Rate 52; Glucose 247 mg/dL (75-110); Potassium 4.4 mmol/L (3.4-5.0); Sodium 127 mmol/L (137-145)
[2020-08-22 08:19] LABS: Glucose Point of Care 299 (65-105)
[2020-08-22] MEDS: INSULIN ASPART (*BKC) 100 UNITS/ML SUB-Q (09:39)
[2020-08-22] MEDS: INSULIN ASPART (*BKC) 100 UNITS/ML 6 UNITS SUB-Q (09:40)
[2020-08-22] MEDS: ENOXAPARIN 40 MG/0.4 ML SYRINGE SUB-Q (09:44)
[2020-08-22] MEDS: INSULIN GLARGINE (*BKC) 100 UNITS/ML 35 UNITS SUB-Q (10:00)
[2020-08-22 13:04] LABS: Glucose Point of Care 452 (65-105)
--- NOTE | 2020-08-22 13:05 | PM.IMPN ---
Progress Note: A&P Assessment and Plan (1) Sepsis: Code(s): A41.9 - Sepsis, unspecified organism Status: Acute Assessment and Plan: Secondary to diabetic infected foot. Blood cultures preliminary are growing g positive cocci in clusters and patient on vancomycin and imipenem . General surgery has seen but reluctant to debride because feel he needs vascular intervention Contacted vascular surgery at [facility] and they will be happy to consult on the patient if he is on the medical service. Hospitalist at [facility] did except for transfer and awaiting bed availability (2) Diabetic foot infection: Code(s): E11.628 - Type 2 diabetes mellitus with other skin complications; L08.9 - Local infection of the skin and subcutaneous tissue, unspecified Status: Acute Assessment and Plan: As above. Continue vancomycin and imipenem and pending final cultures (3) Peripheral vascular disease: Code(s): I73.9 - Peripheral vascular disease, unspecified Status: Acute Assessment and Plan: ELODIA on the right was 0.99 but vascular Doppler revealed 100% occlusion of posterior tibial and 50% superficial femoral on the right Not a vascular emergency since foot is still warm and has Doppler pulses, but will transfer to service that has access to vascular intervention (4) Type 2 diabetes mellitus with hyperglycemia: Code(s): E11.65 - Type 2 diabetes mellitus with hyperglycemia Status: Acute Assessment and Plan: Blood sugar continues to run high with normal gap and CO2 of 27. Started Lantus 08/21 and will increase to 35 units today. and sliding scale to help better control sugar. hold oral hypoglycemic meds (5) Hyponatremia: Code(s): E87.1 - Hypo-osmolality and hyponatremia Status: Acute Assessment and Plan: Better with lower blood sugar. Hydrate and continue to follow , diuretic on hold (6) Chronic kidney disease: Code(s): N18.9 - Chronic kidney disease, unspecified Status: Acute Assessment and Plan: No baseline creatinine but suspect chronic kidney disease. Renal sonogram no obstruction creatinine decreased to 1.4 today (7) Chronic anemia: Code(s): D64.9 - Anemia, unspecified Status: Inactive Assessment and Plan: Iron studies and ferritin compatible with anemia of chronic disease, normal B12, Transfuse to keep hemoglobin above 7 hgb 7.6 today (8) DVT prophylaxis: Code(s): Z29.9 - Encounter for prophylactic measures, unspecified Status: Acute Assessment and Plan: Yan Subjective Date/time seen: 08/22/20 13:05 Interval history: Date of visit 08/22. 55-year-old hypertensive type 2 diabetic admitted with sepsis and infected diabetic right foot with ischemia of right 5th toe. Overall feels somewhat better. Arterial Doppler 08/21 revealed occluded posterior tibial artery with 50% superficial femoral obstruction on the right. Blood cultures returned positive on preliminary and white count has fallen, afebrile, and hemodynamically stable. Exam Narrative: Exam Narrative: Blood pressure 138/62 pulse is 86 and regular saturating 99% on room air respirations 16 per minute temp 37? to General: Moderately ill-appearing male in no acute distress lying in bed. . HEENT: Normocephalic,. PERRL, Sclerae anicteric. Neck: Supple. . Respiratory: Lungs are clear to auscultation bilaterally. Cardiovascular: S1-S2. And no murmurs heard Gastrointestinal: Abdomen is soft, nontender, and with positive bowel sounds. Skin: Warm and dry. He has a necrotic wound on the right lateral forefoot measuring at least 6 cm in length. The tissue is soft and able to probe to bone. The wound is malodorous. He has little sensation in this area. There is surrounding erythema and edema up to the distal orantes. The right 5th toe is dark with a shallow ulceration at the base. There is an approximately nickel siz
[2020-08-22] MEDS: INSULIN ASPART (*BKC) 100 UNITS/ML 25 UNITS SUB-Q ×2 (13:28→18:38)
--- NOTE | 2020-08-22 14:29 | PM.PNCARD ---
Progress Note: A&P Assessment and Plan (1) Diabetic foot infection: Code(s): E11.628 - Type 2 diabetes mellitus with other skin complications; L08.9 - Local infection of the skin and subcutaneous tissue, unspecified Status: Acute Assessment and Plan: ELODIA is normal and his ulcer is likely diabetic with neuropathy. He has gangrene of the toe as well. Will get 2D echo to rule out embolic source. No history of A fib and he is currently in sinus rhythm Arterial duplex is consistent with distal vessel disease, likely is due to diabetes, he would benefit from angiogram and revascularization, and subsequently amputation possibly [id number] amputation, however if he has successful revascularization he would only need amputation of the toe and debridement of his ulcer. Currently the plan is to transfer him to [facility] for vascular surgery evaluation, with that in mind I would not proceed with any procedure here, however if he ended up staying here and could not transfer I would consider doing angiogram and subsequently try to revascularize the distal SFA, and anterior tibial posterior tibial if possible. (2) Sepsis: Code(s): A41.9 - Sepsis, unspecified organism Status: Acute (3) Diabetes: Code(s): E11.9 - Type 2 diabetes mellitus without complications Status: Acute Subjective Date/time seen: 08/22/20 14:29 Feels slightly better today, still with right small toe pain and discoloration, swelling is better. No chest pain no shortness of breath Exam Narrative: Exam Narrative: In no acute distress Normal S1,S2 gangrene of the 5th toe of right foot, necrotic ulcer on the lateral aspect of right foot Const: General: no acute distress Eyes: Sclera: sclerae normal Neck: Neck: no JVD Carotids: no bruits Resp: Effort & Inspection: normal respiratory effort Auscultation: clear to auscultation bilaterally Cardio: Rate: regular rate and not tachycardic Rhythm: regular rhythm Heart sounds: no gallops, no murmurs and no rubs Skin: General skin exam: normal color Neuro: Cranial nerves: Yes Normal hearing present Speech: normal speech Extrem: General: no edema and other Other: Gangrene of the small toe, with decreased range of motion of all toes, also noted on the lateral aspect of the foot on the right side no anterior tibial pulse and decreased posterior tibial pulses Psych: Affect: normal affect Objective Data Vital Signs Vital Signs: Vital Signs - 24 hr 08/21/20 16:00 08/21/20 20:00 08/21/20 22:00 Temperature 36.8 C 36.7 C Pulse Rate 95 106 H 93 Respiratory Rate 18 20 Blood Pressure 145/63 H 149/58 H Pulse Oximetry 100 99 08/21/20 23:42 08/22/20 00:00 08/22/20 02:00 Temperature 36.4 C L Pulse Rate 96 85 84 Respiratory Rate 20 Blood Pressure 148/61 H Pulse Oximetry 99 08/22/20 04:00 08/22/20 06:00 08/22/20 08:00 Temperature 37.3 C 36.6 C Pulse Rate 90 88 87 Respiratory Rate 20 12 Blood Pressure 137/65 139/63 Pulse Oximetry 98 99 Intake/Output Intake/Output: Intake & Output 08/19/20 08/20/20 08/21/20 08/22/20 23:59 23:59 23:59 23:59 Intake Total 3550 5810 1880 Output Total 800 900 Balance 3550 5010 980 Meds/Results Medications: Active Medications Generic Name Dose Route Start Last Admin Trade Name Freq PRN Reason Stop Dose Admin Acetaminophen 650 mg 08/20/20 15:53 Acetaminophen 325 Mg Tablet PO Q4H PRN Mild Pain (1-3) or Fever Dextrose 12.5 gm 08/20/20 23:19 Dextrose 50% 25 Gm/50 Ml Syringe IV PUSH PRN PRN Hypoglycemia Protocol Enoxaparin Sodium 40 mg 08/21/20 19:00 08/22/20 09:44 Enoxaparin 40 Mg/0.4 Ml Syringe SUB-Q 40 mg DAILY ISAK Administration Glucagon 1 mg 08/20/20 23:19 Glucagon For Inj 1 Mg Vial IM PRN PRN Hypoglycemia Protocol Glucose 15 gm 08/20/20 23:19 Glucose Oral Gel 15 Gm Of Glucse In 37.5 Gm Tube PO PRN PRN
[2020-08-22 17:21] LABS: Glucose Point of Care 387 (65-105)
[2020-08-22 20:41] LABS: Glucose Point of Care 205 (65-105)
[2020-08-23] VITALS: PULSE 97
[2020-08-23 04:02] VITALS: BP 138/64; PULSE 90; RESP 20; TEMP 37.8; O2SAT 99
[2020-08-23 04:55] LABS: Basophils Absolute Auto 0.1 K/mm3 (0.0-0.1); Basophils Percent Auto 0.3 % (0.2-1.2); Eosinophils Absolute Auto 0.2 K/mm3 (0-0.3); Eosinophils Percent Auto 1.1 % (0-4.4); Immature Granulocyte Absolute 0.23 K/mm3 (0.00-0.031); Immature Granulocyte Percent A 1.4 % (0-0.5); Lymphocytes Percent Auto 7.9 % (18.3-44.2); Mean Corpuscular HGB Conc 32.9 g/dl (32-36); Mean Corpuscular Hemoglobin 30.4 pg (26-34); Mean Corpuscular Volume 92.5 fl (80-100); Mean Platelet Volume 9.4 fl (7.4-10.4); Monocytes Percent Auto 6.3 % (2.6-8.5); Neutrophils Absolute Auto 13.6 K/mm3 (1.3-6.7); Platelet Count Result 361 k/mm3 (150-375); Red Blood Count 2.27 M/mm3 (4.6-6.20); Red Cell Distribution Width 13.2 % (11.5-14.5); White Blood Count 16.4 K/mm3 (4.5-10.0)
[2020-08-23 05:13] LABS: Albumin Level 2.3 g/dL (3.5-5.1); Anion Gap 0 mmol/L (8-16); Blood Urea Nitrogen 22 mg/dL (9-20); Calcium 7.2 mg/dL (8.4-10.2); Carbon Dioxide 28 mmol/L (22-30); Chloride 100 mmol/L (98-107); Estimated CRCL calculation 66 ml/min; Estimated Glomerular Filt Rate 57; Glucose 132 mg/dL (75-110); Phosphorus 3.4 mg/dL (2.5-4.5); Potassium 4.3 mmol/L (3.4-5.0); Sodium 128 mmol/L (137-145)
[2020-08-23 05:17] LABS: Hemoglobin 6.9 g/dL (14.0-18.0)
[2020-08-23 07:59] VITALS: BP 135/57; PULSE 80; RESP 16; TEMP 36.6; O2SAT 100
[2020-08-23 08:00] VITALS: BP 134/64; PULSE 86; RESP 18; TEMP 36.3; O2SAT 100; O2SAT 99
[2020-08-23 08:15] LABS: Glucose Point of Care 149 (65-105)
[2020-08-23] MEDS: INSULIN ASPART (*BKC) 100 UNITS/ML 7 UNITS SUB-Q (08:57)
[2020-08-23] MEDS: INSULIN GLARGINE (*BKC) 100 UNITS/ML 40 UNITS SUB-Q (08:58)
[2020-08-23 11:10] LABS: Hematocrit 23.8 % (42.0-52.0); Hemoglobin 8.1 g/dL (14.0-18.0)
[2020-08-23 12:03] LABS: Glucose Point of Care 207 (65-105)
--- NOTE | 2020-08-24 18:22 | PM.TDS ---
Transfer Discharge Sum: Prov Provider Date of admission: 08/20/20 15:53 Primary care physician: CHERIE CHERRY, TOWER ERECTOR HELPER Admitting clinician: Thaddeus Yarbrough MD Consults: 08/20/20 Consult to Physician Routine Comment: MESSAGE LEFT WITH EXCHANGE Consulting Provider: Charbel Bullard senior technical writer/MD group to consult: tanya- notify in am Reason for consultation: peripheral vascular disease Has provider been notified: Yes 08/20/20 15:57 Consult to Physician Routine Comment: Consulting Provider: Fritz Santiago Reason for consultation: dm foot Has provider been notified: Yes DS: Admitting Diagnosis Admitting Diagnosis Admitting Diagnosis: Sepsis with infected diabetic foot DS: Discharge Diagnosis Discharge Diagnosis (1) Sepsis: Code(s): A41.9 - Sepsis, unspecified organism Status: Acute Assessment and Plan: Secondary to diabetic infected foot. Blood cultures and wound grew methicillin sensitive Staph aureus on vancomycin and imipenem at transfer. General surgery was reluctant to debride because feel he needs vascular intervention Contacted vascular surgery at [facility] and they will be happy to consult on the patient if he is on the medical service. Hospitalist at [facility] did except for transfer and bed available 08/23/2020 (2) Diabetic foot infection: Code(s): E11.628 - Type 2 diabetes mellitus with other skin complications; L08.9 - Local infection of the skin and subcutaneous tissue, unspecified Status: Acute Assessment and Plan: As above. Continue vancomycin and imipenem and taper further at transferring institution (3) Peripheral vascular disease: Code(s): I73.9 - Peripheral vascular disease, unspecified Status: Acute Assessment and Plan: ELODIA on the right was 0.99 but vascular Doppler revealed 100% occlusion of posterior tibial and 50% superficial femoral on the right Not a vascular emergency since foot is still warm and has Doppler pulses, but will transfer to service that has access to vascular intervention (4) Type 2 diabetes mellitus with hyperglycemia: Code(s): E11.65 - Type 2 diabetes mellitus with hyperglycemia Status: Acute Assessment and Plan: . Started Lantus 08/21 and a.m. of discharge fasting sugar 132 . On Lantus daily with schedule novel log held oral hypoglycemic meds (5) Hyponatremia: Code(s): E87.1 - Hypo-osmolality and hyponatremia Status: Acute Assessment and Plan: Better with lower blood sugar. Hydrate and continue to follow , diuretic on hold, sodium 128 at discharge (6) Chronic kidney disease: Code(s): N18.9 - Chronic kidney disease, unspecified Status: Acute Assessment and Plan: No baseline creatinine but suspect chronic kidney disease. Renal sonogram no obstruction creatinine decreased to 1.3 at discharge (7) Chronic anemia: Code(s): D64.9 - Anemia, unspecified Status: Inactive Assessment and Plan: Iron studies and ferritin compatible with anemia of chronic disease, normal B12, Date received 2 units of packed cells while here and at discharge hemoglobin 8.1 Transfer Discharge Sum: Med Medications Active and Home Medications: Home Medications glipizide 10 mg PO DAILY 08/20/20 [History Confirmed 08/20/20] hydrochlorothiazide 12.5 mg PO DAILY 08/20/20 [History Confirmed 08/20/20] losartan 50 mg PO DAILY 08/20/20 [History Confirmed 08/20/20] losartan 100 mg PO BID 08/20/20 [History Confirmed 08/20/20] metformin 500 mg PO DAILY 08/20/20 [History Confirmed 08/20/20] Transfer Discharge Sum: Hosp Hospital Course Hospital course: Handy Potts is a 55 year old male admitted with sepsis, anemia, hyperglycemia, with infected right foot and renal insufficiency. Lactic acid was normal but arterial Dopplers revealed a totally occluded right posterior tibial and 50% superficial femoral and it was felt by surgery and Card
== END 2020-08-23 11:40 | disposition short-term general hospital (02) | DRG 872 ==
LOC: ANHED 16:19 → ANHIMU 18:47
PROVIDERS: Physician Assistant; Admitting Provider Internal Medicine; Emergency Provider Emergency Medicine; PCP Nurse Practitioner Family; Visit Provider Internal Medicine
DX: A41.01 Sepsis due to Methicillin susceptible Staphylococcus aureus (principal); E87.1 Hypo-osmolality and hyponatremia; M86.171 Other acute osteomyelitis, right ankle and foot; E11.69 Type 2 diabetes mellitus with other specified complication; E11.65 Type 2 diabetes mellitus with hyperglycemia; E11.51 Type 2 diabetes mellitus with diabetic peripheral angiopathy without gangrene; E11.22 Type 2 diabetes mellitus with diabetic chronic kidney disease; D63.8 Anemia in other chronic diseases classified elsewhere; I12.9 Hypertensive chronic kidney disease with stage 1 through stage 4 chronic kidney disease, or unspecified chronic kidney disease; N18.9 Chronic kidney disease, unspecified; E86.0 Dehydration; M21.372 Foot drop, left foot; M17.11 Unilateral primary osteoarthritis, right knee; E11.42 Type 2 diabetes mellitus with diabetic polyneuropathy; Z87.891 Personal history of nicotine dependence; Z86.73 Personal history of transient ischemic attack (TIA), and cerebral infarction without residual deficits
CPT/HCPCS: 36415; 36430; 71045; 73630; 76775; 80048; 80053; 80069; 81001; 82010; 82550; 82607; 82728; 82746; 82803; 82948; 83036; 83540; 83550; 83605; 83735; 84443; 84484; 85014; 85018; 85025; 85027; 85046; 85610; 85652; 85730; 86140; 86850; 86900; 86901; 86923; 87040; 87070; 87077; 87147; 87186; 87205; 93922; 93925; 93971; 96361; 96365; 96367; 96375; 99285; A9270; C8929; J0743; J1650; J1815; J2405; J2543; J3370; J7030; J7050; J7120; P9016; Q9957

== ENCOUNTER 2020-08-28 20:25 | IRF | payer OTHER, SELFPAY ==
--- NOTE | ~2020-08-28 | XR_ITS ---
XR chest 1V portable 08/28/2020 21:44 Indication: Pre-existing PICC line placement Procedure: AP portable chest Comparison: 08/20/2020 Findings: PICC line tip in the SVC. Heart size upper normal. Bibasilar infiltrates. No pleural effusi on, edema or pneumothorax. Impression: 1: Bibasilar infiltrates may represent atelectasis or pneumonia. Reviewed, dictated and finalized at location A. N TILE MACHINE OPERATOR Impression: 1: Bibasilar infiltrates may represent atelectasis or pneumonia.
--- NOTE | 2020-08-28 20:25 | ADMGEN ---
This patient, Handy Potts, was admitted to [facility] Room 230-02. Patient/family oriented to hospital policies and general routines including ID bracelet, bed and alarms, visiting hours, pain management, procedures, bathroom and other care routines, personal items, smoking policy, room service/diet, and visiting hours. Information on how to activate the Rapid Response Team has been discussed. Patient/Family are encouraged to report perceived risks to care and to ask questions if they do not understand what they are told or what they should do.
[2020-08-28 21:00] VITALS: BP 147/74; PULSE 74; RESP 20; TEMP 36.9; O2SAT 97
[2020-08-29 00:11] LABS: Glucose Point of Care 209 (65-105)
[2020-08-29 00:42] VITALS: BMI 29.2
[2020-08-29 06:00] VITALS: BP 138/73; PULSE 73; RESP 16; TEMP 36.8; O2SAT 99
[2020-08-29] MEDS: CENTRAL LINE FLUSH 20 ML IV PUSH (06:00)
[2020-08-29] MEDS: ceFAZolin 2 GM/D5W 50 ML 2 GM/50 ML BAG IVPB ×3 (06:04→21:58)
[2020-08-29 06:20] LABS: Basophils Absolute Auto 0.1 K/mm3 (0.0-0.1); Basophils Percent Auto 0.9 % (0.2-1.2); Eosinophils Absolute Auto 0.2 K/mm3 (0-0.3); Eosinophils Percent Auto 3.3 % (0-4.4); Hemoglobin 8.4 g/dL (14.0-18.0); Immature Granulocyte Absolute 0.07 K/mm3 (0.00-0.031); Immature Granulocyte Percent A 1.2 % (0-0.5); Lymphocytes Absolute Auto 1.13 K/mm3 (0.9-3.2); Lymphocytes Percent Auto 19.5 % (18.3-44.2); Mean Corpuscular HGB Conc 32.3 g/dl (32-36); Mean Corpuscular Hemoglobin 30.9 pg (26-34); Mean Corpuscular Volume 95.6 fl (80-100); Mean Platelet Volume 8.8 fl (7.4-10.4); Monocytes Absolute Auto 0.4 K/mm3 (0.1-0.6); Monocytes Percent Auto 7.4 % (2.6-8.5); Neutrophils Absolute Auto 3.9 K/mm3 (1.3-6.7); Neutrophils Percent Auto 67.7 % (45.5-73.1); Platelet Count Result 369 k/mm3 (150-375); Red Blood Count 2.72 M/mm3 (4.6-6.20); White Blood Count 5.8 K/mm3 (4.5-10.0)
[2020-08-29 06:29] LABS: Alanine Aminotransferase 30 U/L (4-50); Albumin Level 2.4 g/dL (3.5-5.1); Alkaline Phosphatase 100 U/L (38-126); Anion Gap -3 mmol/L (8-16); Aspartate Amino Transferase 61 U/L (17-59); Bilirubin,Total 0.4 mg/dL (0.2-1.3); Blood Urea Nitrogen 20 mg/dL (9-20); Calcium 7.4 mg/dL (8.4-10.2); Carbon Dioxide 32 mmol/L (22-30); Chloride 102 mmol/L (98-107); Estimated CRCL calculation 92 ml/min; Estimated Glomerular Filt Rate 45; Glucose 234 mg/dL (75-110); Potassium 5.4 mmol/L (3.4-5.0); Sodium 131 mmol/L (137-145)
[2020-08-29 06:41] LABS: Glucose Point of Care 245 (65-105)
[2020-08-29 06:50] LABS: Creatinine Urine 32.3 mg/dL
[2020-08-29] MEDS: CENTRAL LINE FLUSH 10 ML IV PUSH ×3 (07:09→21:56)
[2020-08-29 08:13] LABS: Hemoglobin A1C 7.8 % (<5.7)
[2020-08-29] MEDS: amLODIPine BESYLATE 5 MG TABLET 10 MG PO (09:06)
[2020-08-29] MEDS: INSULIN ASPART (*BKC) 100 UNITS/ML SUB-Q ×3 (09:06→17:02)
--- NOTE | 2020-08-29 09:12 | WPDREHABHP ---
H&P: HPI History of Present Illness Date/Time: 08/29/20 09:12 Chief Complaint: right BKA 80 Narrative: Handy Potts is a 55 year old male HISTORY OF PRESENT ILLNESS: The patient's primary rehab impairment category is Amputation -lower extremity The etiologic diagnosis is gangrene, right foot I saw this patient [id number] on August 29, 2020 at 9:00 a.m. The patient is a 55 years old right-handed male with past medical history of diabetes mellitus with peripheral neuropathy, peripheral vascular disease, and hypertension presented to [facility] on August 23, 2020 as a transfer from [facility] for dark discoloration of his right small toe and right foot being read for the last 7 to 10 days. The patient reported that it started out as a blister on the left 5th toe and then had a color changes with progressive redness and swelling. He was admitted to [facility] and was placed on IV vancomycin and Primaxin. There was no improvement so that patient was transferred from vascular surgery and Infectious Disease consults. Infectious Disease was consulted for MSSA bacteremia found at [facility]. The patient was placed on Ancef and all other antibiotic treatments were discontinued. Vascular surgery was consulted and the patient underwent a right okaye-igl-ufia amputation on August 24, [address] Breezy hong . The patient's hospitalization has been significant for left footdrop, acute blood loss anemia, hypocalcemia, his Staph bacteremia, diabetes mellitus type 2 with hyper glycemia, sepsis, hematoma of right lower leg, gangrene of the right foot, vitamin-D deficiency, iron deficiency anemia, hyponatremia, acute kidney injury, and acute postoperative pain. The patient left foot drop is complicating recovery requiring inpatient rehabilitation for recovery, acute blood loss anemia is currently stable, hypocalcemia and hyponatremia are being monitored and repleted as necessary, Staph bacteremia, sepsis, hematoma, and gangrene were all resolved with amputation, diabetes mellitus with hyperglycemia is being monitored and managed with sliding-scale insulin and Lantus, acute kidney injury resolving with IV fluids, vitamin deficiency is being treated with oral supplements of vitamin-D, acute postoperative pain is being managed with oral analgesics. The patient will not be on oral DVT prophylaxis. The patient started Ancef 2000 mg IV q.8 hours on August 28, 2020 and will stop on September 11, 2020 #COVID. the patient has not traveled outside the [place] or had contact with someone who is ill that has traveled outside the [place] in the past 21 days. The patient has not traveled to an area of the [place] that is experiencing known transmission of the Coronavirus and has not had close personal contact with anyone that has. The patient does not have a fever. The patient is not experiencing lower respiratory illness symptoms. The patient had presumptive negative COVID results on August 23, 2020 and August 27, 2020. Therapy was initiated at the acute care facility and the patient transferred to us from [facility] on August 28, 2020 FALLS OR SURGERIES: the patient has had major surgery in the last 100 day there is right below-knee amputation on August 24, 2020. The patient has had no falls in the past year. The patient has had no falls with injury in the past year. PAST MEDICAL HISTORY: Hypertension, diabetes mellitus with peripheral neuropathy, and peripheral vascular disease. PAST SURGICAL HISTORY: None SOCIAL HISTORY: former smoker, alcohol use 2 to 3 times per week, no illicit drug use. The patient lives in a bilevel home alone with approximately 12 stairs to enter. The patient was independent in all ADLs S and IADLs previously. Patient reported having a cart to hold onto for longer distances like grocery shopping or work and reported it was helpful. Patient has drop foot an AFO for left foot
[2020-08-29 09:48] LABS: Total Protein Urine Random 60 mg/dL
[2020-08-29 12:49] LABS: Glucose Point of Care 317 (65-105)
[2020-08-29 13:07] VITALS: BMI 29.2
--- NOTE | 2020-08-29 13:38 | PCNSR ---
On 08/29/20, the student, Chelle Quintero, provided care and completed [facility] documentation on this patient. I have reviewed the student's documentation and agree with the findings.
--- NOTE | 2020-08-29 13:50 | PCPTNOTE ---
Handy Potts was evaluated for a wheeled walker on 08/29/2020 by this physical therapist. The wheeled walker will resolve patient's mobility limitations and will be used for ADL's within the home. The patient can safely use the wheeled walker. ?The wheeled walker will resolve the patient?s mobility deficits, including decreased balance, endurance, and functional mobility.
[2020-08-29 14:00] VITALS: BP 137/79; PULSE 70; RESP 20; TEMP 36.6; O2SAT 95
[2020-08-29 16:46] LABS: Glucose Point of Care 273 (65-105)
[2020-08-29 20:00] VITALS: BP 144/76; PULSE 84; RESP 20; TEMP 36.8; O2SAT 95
[2020-08-29 20:30] VITALS: PULSE 84; RESP 20; O2SAT 95
[2020-08-29 22:08] LABS: Glucose Point of Care 292 (65-105)
[2020-08-30 01:35] VITALS: PULSE 79; RESP 18; O2SAT 94
[2020-08-30] MEDS: CENTRAL LINE FLUSH 20 ML IV PUSH (06:01)
[2020-08-30] MEDS: CENTRAL LINE FLUSH 10 ML IV PUSH ×3 (06:01→22:04)
[2020-08-30] MEDS: ceFAZolin 2 GM/D5W 50 ML 2 GM/50 ML BAG IVPB ×3 (06:04→22:03)
[2020-08-30 06:23] LABS: Anion Gap 2 mmol/L (8-16); Blood Urea Nitrogen 19 mg/dL (9-20); Calcium 7.9 mg/dL (8.4-10.2); Carbon Dioxide 30 mmol/L (22-30); Chloride 101 mmol/L (98-107); Estimated CRCL calculation 62 ml/min; Estimated Glomerular Filt Rate 52; Glucose 269 mg/dL (75-110); Potassium 5.2 mmol/L (3.4-5.0); Sodium 133 mmol/L (137-145)
[2020-08-30 06:50] VITALS: BP 147/72; PULSE 78; RESP 20; TEMP 37.1; O2SAT 97
[2020-08-30 06:54] LABS: Glucose Point of Care 297 (65-105)
[2020-08-30] MEDS: INSULIN ASPART (*BKC) 100 UNITS/ML SUB-Q ×3 (08:23→17:37)
[2020-08-30] MEDS: amLODIPine BESYLATE 5 MG TABLET 10 MG PO (08:23)
--- NOTE | 2020-08-30 09:44 | PM.CNNEP ---
Assessment and Plan Assessment and plan (1) Chronic kidney disease, stage 3a: Code(s): N18.31 - Chronic kidney disease, stage 3a Status: Acute Assessment and Plan: Handy has chronic kidney disease. It looks like his creatinine ranges between 1.4 and 1.7. Today it is 1.4. This gives him stage IIIa chronic kidney disease. Most likely this is due to diabetes and hypertension. He sees a shade classifier in [place] who is done the evaluation. So I will repeat this. His creatinine looks pretty stable right now. Things to protect his kidneys include using losartan, keeping his blood pressure under control, controlling diabetes, staying well hydrated, keeping his bicarbonate from getting too low, and controlling phosphorus. He would normally be on a low-protein diet but we will hold off on this because of the healing wound. (2) Hyponatremia: Code(s): E87.1 - Hypo-osmolality and hyponatremia Status: Acute Assessment and Plan: Sodium level is a little bit low. Part of this is because of high sugars. Today is sodium was 133 and his blood sugar was 269 so this corrects to about 135 which would just barely be below normal. Will check a thyroid and cortisol and in SPE just to be sure there is nothing else going on. (3) Diabetes: Code(s): E11.9 - Type 2 diabetes mellitus without complications Status: Acute Assessment and Plan: The patient has diabetes. He is on Accu-Cheks and sliding-scale insulin (4) Hypertension: Code(s): I10 - Essential (primary) hypertension Status: Acute Assessment and Plan: Blood pressure is up and down a little bit. Will follow him for trending. He is on amlodipine now. With his potassium I do not want to put him back on losartan quite yet. I will put him on hydrochlorothiazide. (5) Anemia: Code(s): D64.9 - Anemia, unspecified Status: Acute Assessment and Plan: Hemoglobin is 8.4. Will follow this along History of Present Illness Reason for Consult Consult date: 08/30/20 Chief Complaint Chief complaint: R. BKA History of Present Illness Narrative: Handy is a very pleasant gentleman who has multiple medical problems including hypertension, diabetes, left drop foot, chronic kidney disease with a baseline creatinine of around 1.4-1.7, coronary disease status post cardiac catheterization and now on medical therapy,, colon polyps, peripheral neuropathy, TIA, lacunar infarcts, arthritis. The patient's problems began with a blister on the right forefoot. He also had a temperature of 101.5?. He was admitted to [facility] on the . He received antibiotics and supportive care. Investigation showed peripheral vascular disease. They sent him to [place] to see a vascular surgeon. There he ended up having an amputation of the right leg below the knee. He now has a wound there which he says is healing pretty well. He was transferred back to acute rehab for strengthening and stump care. The patient was readmitted yesterday to the rehab center and he is getting physical therapy. His creatinine was elevated so renal consultation was requested. The patient sees a shade classifier in [facility]. He is interested in changing because he wants someone closer to home. He is going to talk to his primary care physician about which 1 to use. I offered our outpatient services if he desires. He denies any chest pain or shortness of breath. He has no allergies to medications. He stopped smoking 5 years ago. He usually drinks about 5 beers per day but has not had anything to drink for a couple of weeks, mostly because of hospitalizations. Review of Systems Constitutional: Constitutional: Reports no additional constitutional complaints Eyes: Eyes: Reports no additional eye complaints ENT: Reports system reviewed and no additional complaints, except as documented Cardiovascular: Cardiovascular: Reports no additional
[2020-08-30 12:33] LABS: Glucose Point of Care 320 (65-105)
[2020-08-30 13:17] LABS: Add Urine Microscopic? YES; Appearance Urine Clear (Clear); Bilirubin Urine Negative (Negative); Blood Urine Negative (Negative); Color Urine Yellow (Yellow); Glucose Urine UA 3+ mg/dL (Negative); Ketones Urine Negative (Negative); Leukocyte Esterase Ur Negative LEU/UL (NEGATIVE); Nitrate Urine Negative (Negative); Protein Urine 2+ mg/dL (Negative); RBC Urine 0-2 /hpf (0-2); Specific Grav Ur 1.012 (1.001-1.035); Urobilinogen Urine Negative mg/dL (<2.0); WBC Urine 0-3 /hpf (0-3)
[2020-08-30 13:44] LABS: Creatinine Urine 69.3 mg/dL; Total Protein Urine Random 177 mg/dL; Ur Ttl Prot Creatinine Ratio 2.55 mg/mg (0-0.20)
--- NOTE | 2020-08-30 13:49 | RPD ---
INDIVIDUALIZED PLAN OF CARE FOR Handy Potts Brief Synthesis of Pre-Admission Screen, Post-Admission Evaluation and Therapy Evaluations: The patient presents to rehab with a right below the knee amputation in the setting of gangrene. Comorbidities include hypertension, acute blood loss anemia, acute postoperative pain, hyponatremia, hypocalcemia, Vitamin D deficiency, diabetes mellitus type 2 with peripheral neuropathy and hyperglycemia, acute kidney injury, hematoma, MSSA bacteremia, peripheral vascular disease, and left foot drop. The complexity of the patient's medical management, nursing, and therapy needs require an inpatient rehab hospital stay with a physician-led interdisciplinary team approach. The patient?s needs will be best met in an intensive program vs. at a lower level of care. The patient requires physician services for medical oversight, management of post-op complications in the setting of present comorbidities, management of diabetes mellitus with hyperglycemia, and pain management. Post-op complications have included acute postoperative pain, acute blood loss anemia, hyponatremia, hypocalcemia, hypertension, acute kidney injury, and hyperglycemia. The patient requires nursing services for anticoagulation therapy, diabetes training, DVT prophylactics, IV administration, infection protection, medication management and education, pressure relief, and wound care. Deficits include:ADLs, Balance, Endurance, Family Training/Education, Mobility, Pain Management, ROM, Safety, Strength, and Transfers. Cobol Engineer/Case Management for: Discharge Planning and Patient/Family Counseling Physical Therapy: 5 days per week for 90 minutes. Treatments may include: Therapeutic Exercise, Gait Training, Neuromuscular Re-education, Transfer Training, Community Reintegration, Bed Mobility, Patient/Family Education, Wheelchair Mobility Group Therapy/Concurrent Therapy Rationales: -Improve attention span during functional activities in a distracted environment. -Enhance problem solving and/or adequate judgment skills during functional activities in a distracted environment. -Promote increased safety awareness in a distracted environment to reduce fall risk with functional tasks, transfers, and ambulation to allow a more safe, self-sufficient return to the home environment. -Improve dynamic balance skills to promote safety and independence with functional activities in a distracted environment for maximum gain. Occupational Therapy: 5 days per week for 90 minutes. Treatments may include: Therapeutic Exercise, Therapeutic Activity, Cognitive Training, Self-Care Transfer Training, Community Reintegration, Home Management, Patient/Family Education, Wheelchair Mobility Training, Energy Conservation Training Group Therapy/Concurrent Therapy Rationales: -Allow therapist to observe and teach generalization and carry-over of skills learned in individual therapy. -Enhance problem solving and sequencing skills during therapeutic activities in a distracted environment. -Promote increased safety awareness in a realistic setting to reduce fall risk with functional tasks due to visual and verbal distractions. -Increase functional level with ADLs, ADL transfers and use of adaptive equipment through therapeutic activities with others while promoting safety to allow a more safe, self-sufficient return home. Medical Prognosis: Good Anticipated Length of Stay: 10 days Rehab Goals: Eating Goal: 06-Independent Oral Hygiene Goal: 06-Independent Toileting Hygiene Goal: 06-Independent Shower/Bathe Self Goal: 06-Independent Upper Body Dressing Goal: 06-Independent Lower Body Dressing Goal: 06-Independent Putting On/Taking Off Footwear Goal: 06-Independent Rolling Left and Right Goal: 06-Independent Sit to Lying Goal: 06-Independent Lying to Sitting on Side of Bed Goal: 06-Independent Sit to Stand Goal: 06-Independent Chair/[id number]-bd-[id number] Transfer Goal: 06-Independent Toilet Transfer
[2020-08-30 14:00] VITALS: BP 143/66; PULSE 87; RESP 18; TEMP 36.7; O2SAT 99
--- NOTE | 2020-08-30 15:28 | WPDNEURORHBP ---
Subjective Date/time seen: 08/30/20 15:28 is status post right [id number]-ieas amputation with ongoing history of diabetes mellitus, peripheral neuropathy, peripheral vascular disease, and hypertension. Today his temp is 36.7? pulse 87 respiration 18 pulse ox 99 on room air blood pressure 143/66 Review of Systems Review of Systems: All systems reviewed & are unremarkable except as noted in HPI and below Functional Status Ambulation Ability Ability to Ambulate 10 Feet: Contact Guard Ability to Ambulate 50 Feet With 2 Turns: Minimum Assistance X 1 Ability to Ambulate 150 Feet: Moderate Assistance X 1 Ambulation Assistive Devices: Walker, Wheeled Exam Const: General: cooperative, healthy appearing and comfortable Nutritional Appearance: average body habitus, well nourished and thin Limitations: other limitations Other: right [id number] amputation Eyes: General: appearance normal, both eyes and all related structures Resp: Effort & Inspection: normal respiratory effort Cardio: Jugular venous distension: no JVD Rate: regular rate Rhythm: regular rhythm GI: Auscultation: normal bowel sounds Skin: General skin exam: no rashes or lesions noted Extrem: General: normal to inspection, full ROM and capillary refill normal Right upper extremity: normal to inspection and Extremity exam: right hand ( small muscle wasting) Left upper extremity: normal to inspection, full ROM and hand ( small muscle wasting) Psych: Appearance: grossly normal Objective Data Vital Signs Vital Signs: Vital Signs - 24 hr 08/29/20 20:00 08/29/20 20:30 08/30/20 01:35 Temperature 36.8 C Pulse Rate 84 84 79 Respiratory Rate 20 20 18 Blood Pressure 144/76 H Pulse Oximetry 95 95 94 08/30/20 06:50 08/30/20 14:00 Temperature 37.1 C 36.7 C Pulse Rate 78 87 Respiratory Rate 20 18 Blood Pressure 147/72 H 143/66 H Pulse Oximetry 97 99 Intake/Output Intake/Output: Intake & Output 08/27/20 08/28/20 08/29/20 08/30/20 23:59 23:59 23:59 23:59 Intake Total 1110 700 Balance 1110 700 Meds/Results Medications: Active Medications Generic Name Dose Route Start Last Admin Trade Name Freq PRN Reason Stop Dose Admin Acetaminophen 650 mg 08/28/20 22:20 Acetaminophen 325 Mg Tablet PO Q6H PRN Fever Hydrocodone Bitart/Acetaminophen 1 tab 08/29/20 08:15 Hydrocodone/Acetaminophen (*Crx) 5-325 Mg Tablet PO Q6H PRN Pain Rated 5 or Less Hydrocodone Bitart/Acetaminophen 2 tab 08/29/20 08:15 Hydrocodone/Acetaminophen (*Crx) 5-325 Mg Tablet PO Q6H PRN Pain Rated 6 or Greater Amlodipine Besylate 10 mg 08/29/20 09:00 08/30/20 08:23 Amlodipine Besylate 5 Mg Tablet PO 10 mg DAILY ISAK Administration Dextrose 12.5 gm 08/29/20 01:19 Dextrose 50% 25 Gm/50 Ml Syringe IV PUSH PRN PRN Hypoglycemia Protocol Glipizide 10 mg 08/31/20 06:30 Glipizide 5 Mg Tablet PO DAILY@0630 ISAK Glucagon 1 mg 08/29/20 01:19 Glucagon For Inj 1 Mg Vial IM PRN PRN Hypoglycemia Protocol Glucose 15 gm 08/29/20 01:19 Glucose Oral Gel 15 Gm Of Glucse In 37.5 Gm Tube PO PRN PRN Hypoglycemia Protocol Cefazolin Sodium 2 gm in 50 mls @ 100 mls/hr 08/29/20 06:00 08/30/20 14:05 Ancef 2 Gm/D5w 50 Ml IVPB 09/11/20 18:01 Infused Q8H ISAK Infusion Dextrose 1,000 mls @ 100 mls/hr 08/29/20 01:19 Dextrose 5% 1,000 Ml IVPB PRN PRN Hypoglycemia Protocol Insulin Aspart 2 - 5 units 08/29/20 08:00 08/30/20 12:00 Insulin Aspart (*Bkc) 100 Units/Ml SUB-Q 4 units TIDWM ISAK Administration Protocol Metformin HCl 500 mg 08/30/20 17:00 Metformin Hcl 500 Mg Tablet PO BIDWM ISAK Sodium Chloride 10 ml 08/29/20 06:00 08/30/20 13:33 Central Line Flush IV PUSH 10 ml Q8HR ISAK Administration Sodium Chloride 10 ml 08/29/20 02:03 Central Line Flush IV PUSH PRN PRN with TPN bag hernández
[2020-08-30 17:30] LABS: Glucose Point of Care 337 (65-105)
[2020-08-30] MEDS: metFORMIN HCL 500 MG TABLET PO (17:37)
[2020-08-30 20:00] VITALS: PULSE 90; RESP 18; O2SAT 94
[2020-08-30 21:10] LABS: Glucose Point of Care 308 (65-105)
[2020-08-30 22:00] VITALS: BP 137/70; PULSE 90; RESP 18; TEMP 36.6; O2SAT 94
[2020-08-31] MEDS: ceFAZolin 2 GM/D5W 50 ML 2 GM/50 ML BAG IVPB ×3 (05:00→21:58)
[2020-08-31] MEDS: CENTRAL LINE FLUSH 10 ML IV PUSH ×3 (05:00→21:59)
[2020-08-31 05:07] VITALS: BP 156/76; PULSE 78; RESP 18; TEMP 36.5; O2SAT 95
[2020-08-31 05:16] LABS: Albumin Level 2.8 g/dL (3.5-5.1); Anion Gap 1 mmol/L (8-16); Blood Urea Nitrogen 21 mg/dL (9-20); Calcium 8.1 mg/dL (8.4-10.2); Carbon Dioxide 33 mmol/L (22-30); Chloride 100 mmol/L (98-107); Estimated CRCL calculation 62 ml/min; Estimated Glomerular Filt Rate 52; Glucose 300 mg/dL (75-110); Phosphorus 3.8 mg/dL (2.5-4.5); Sodium 134 mmol/L (137-145)
[2020-08-31] MEDS: glipiZIDE 5 MG TABLET 10 MG PO (06:41)
[2020-08-31 06:52] LABS: Glucose Point of Care 307 (65-105)
[2020-08-31 08:00] VITALS: PULSE 78; RESP 18; O2SAT 95
[2020-08-31] MEDS: metFORMIN HCL 500 MG TABLET PO ×2 (08:48→17:03)
[2020-08-31] MEDS: amLODIPine BESYLATE 5 MG TABLET 10 MG PO (08:48)
[2020-08-31] MEDS: INSULIN ASPART (*BKC) 100 UNITS/ML SUB-Q ×2 (08:49→17:03)
[2020-08-31] MEDS: COSYNTROPIN 0.25 MG/ML VIAL IV PUSH (11:11)
[2020-08-31 12:10] LABS: Glucose Point of Care 166 (65-105)
--- NOTE | 2020-08-31 12:51 | PC.NURSE ---
cortisol labs drawn per ordered by Dr. Denton but last 60min cortisol lab wouldnt scan on printer. was sent to lab.
[2020-08-31 14:00] VITALS: BP 167/66; PULSE 86; RESP 20; TEMP 36.8; O2SAT 100
--- NOTE | 2020-08-31 14:24 | WPDNEURORHBP ---
Subjective Date/time seen: 08/31/20 14:24 55 years old with right [id number] amputation in addition to the underlying risk factors as mentioned before remains actively involved in the physical therapy and has been extremely motivated and has a very good attitude he remains afebrile with temp of 36.5? pulse 78 respiration 18 pulse ox 95% on room air blood pressure 156/76. Has no new lab Review of Systems Review of Systems: All systems reviewed & are unremarkable except as noted in HPI and below Functional Status Ambulation Ability Ability to Ambulate 10 Feet: Minimum Assistance X 1 Ability to Ambulate 50 Feet With 2 Turns: Minimum Assistance X 1 Ability to Ambulate 150 Feet: Moderate Assistance X 1 Ambulation Assistive Devices: Walker, Wheeled Exam Const: General: cooperative, comfortable and no acute distress Nutritional Appearance: average body habitus Orientation/consciousness: patient oriented x3 Limitations: other limitations ( right [id number] amputation the wounds clean) HENMT: Ears: hearing grossly normal bilaterally General nose exam: Normal external nose present and No nasal discharge present Face and sinus: normal facial exam Eyes: General: appearance normal, both eyes and all related structures Neck: Neck: full ROM Resp: Effort & Inspection: normal respiratory effort Auscultation: clear to auscultation bilaterally Cardio: Jugular venous distension: no JVD Rate: regular rate Rhythm: regular rhythm GI: Auscultation: normal bowel sounds Skin: General skin exam: no rashes or lesions noted Other: stump healthy Neuro: General: patient oriented x3 Cranial nerves: Yes CN's II-XII intact bilaterally Cognition (Neuro): normal cognition Speech: normal speech Gait exam (Neuro): Assisted gait required Motor exam (neuro): Abnormal motor strength present ( generally decreased) Sensory Exam: Sensory deficit (Neuro) ( distally) Deep tendon reflexes (DTR's): Right triceps reflex intensity grade: 1+, Left triceps reflex intensity grade: 1+, Rt Biceps (C5, C6): 1+, Left biceps reflex intensity grade: 1+, Right brachioradialis reflex intensity grade: 1+, Left brachioradialis reflex intensity grade: 1+ and Left patellar reflex intensity grade: 1+ Plantar Reflex Responses: downgoing: left Coordination: [id number] test normal Psych: Appearance: grossly normal ( extremely optimistic and cooperative) Objective Data Vital Signs Vital Signs: Vital Signs - 24 hr 08/30/20 20:00 08/30/20 22:00 08/31/20 05:07 Temperature 36.6 C 36.5 C Pulse Rate 90 90 78 Respiratory Rate 18 18 18 Blood Pressure 137/70 156/76 H Pulse Oximetry 94 94 95 08/31/20 08:00 Temperature Pulse Rate 78 Respiratory Rate 18 Blood Pressure Pulse Oximetry 95 Intake/Output Intake/Output: Intake & Output 08/28/20 08/29/20 08/30/20 08/31/20 23:59 23:59 23:59 23:59 Intake Total 1110 1110 530 Balance 1110 1110 530 Meds/Results Medications: Active Medications Generic Name Dose Route Start Last Admin Trade Name Freq PRN Reason Stop Dose Admin Acetaminophen 650 mg 08/28/20 22:20 Acetaminophen 325 Mg Tablet PO Q6H PRN Fever Hydrocodone Bitart/Acetaminophen 1 tab 08/29/20 08:15 Hydrocodone/Acetaminophen (*Crx) 5-325 Mg Tablet PO Q6H PRN Pain Rated 5 or Less Hydrocodone Bitart/Acetaminophen 2 tab 08/29/20 08:15 Hydrocodone/Acetaminophen (*Crx) 5-325 Mg Tablet PO Q6H PRN Pain Rated 6 or Greater Amlodipine Besylate 10 mg 08/29/20 09:00 08/31/20 08:48 Amlodipine Besylate 5 Mg Tablet PO 10 mg DAILY ISAK Administration Dextrose 12.5 gm 08/29/20 01:19 Dextrose 50% 25 Gm/50 Ml Syringe IV PUSH PRN PRN Hypoglycemia Protocol Glipizide 10 mg 08/31/20 06:30 08/31/20 06:41 Glipizide 5 Mg Tablet PO 10 mg DAILY@0630 ISAK Administration Glucagon 1 mg 08/29/20 01:19 Glucagon For Inj 1 Mg Vial IM PRN PRN Hypoglycemia Protoco
[2020-08-31 16:47] LABS: Glucose Point of Care 392 (65-105)
[2020-08-31 20:50] VITALS: PULSE 81; RESP 16; O2SAT 100
[2020-08-31 21:51] LABS: Glucose Point of Care 286 (65-105)
[2020-08-31 22:00] VITALS: BP 155/69; PULSE 81; RESP 16; TEMP 36.7; O2SAT 100
[2020-09-01 06:00] VITALS: BP 167/88; PULSE 95; RESP 16; TEMP 36.5; O2SAT 97
[2020-09-01] MEDS: ceFAZolin 2 GM/D5W 50 ML 2 GM/50 ML BAG IVPB ×3 (06:09→21:21)
[2020-09-01] MEDS: CENTRAL LINE FLUSH 10 ML IV PUSH ×3 (06:09→21:21)
[2020-09-01] MEDS: glipiZIDE 5 MG TABLET 10 MG PO (06:10)
[2020-09-01 06:54] LABS: Glucose Point of Care 326 (65-105)
[2020-09-01] MEDS: INSULIN ASPART (*BKC) 100 UNITS/ML SUB-Q ×3 (07:51→17:04)
[2020-09-01] MEDS: amLODIPine BESYLATE 5 MG TABLET 10 MG PO (07:53)
[2020-09-01] MEDS: metFORMIN HCL 500 MG TABLET PO ×2 (07:53→17:04)
[2020-09-01 11:50] LABS: Glucose Point of Care 292 (65-105)
[2020-09-01 14:00] VITALS: BP 135/68; PULSE 81; RESP 18; TEMP 36.7; O2SAT 100
[2020-09-01 16:54] LABS: Glucose Point of Care 296 (65-105)
[2020-09-01 20:54] VITALS: BP 149/74; PULSE 81; RESP 20; TEMP 36.4; O2SAT 98
[2020-09-01 21:29] LABS: Glucose Point of Care 352 (65-105)
[2020-09-02 05:39] VITALS: BP 148/67; PULSE 80; RESP 18; TEMP 36.6; O2SAT 100
[2020-09-02] MEDS: ceFAZolin 2 GM/D5W 50 ML 2 GM/50 ML BAG IVPB ×3 (05:46→21:10)
[2020-09-02 05:51] LABS: Glucose Point of Care 248 (65-105)
[2020-09-02 05:51] LABS: Hematocrit 26.4 % (42.0-52.0); Hemoglobin 8.5 g/dL (14.0-18.0); Mean Corpuscular HGB Conc 32.2 g/dl (32-36); Mean Corpuscular Hemoglobin 29.9 pg (26-34); Mean Platelet Volume 8.6 fl (7.4-10.4); Platelet Count Result 277 k/mm3 (150-375); Red Blood Count 2.84 M/mm3 (4.6-6.20); Red Cell Distribution Width 12.7 % (11.5-14.5); White Blood Count 4.5 K/mm3 (4.5-10.0)
[2020-09-02 06:09] LABS: Alanine Aminotransferase 14 U/L (4-50); Albumin Level 2.9 g/dL (3.5-5.1); Alkaline Phosphatase 96 U/L (38-126); Anion Gap 5 mmol/L (8-16); Aspartate Amino Transferase 28 U/L (17-59); Bilirubin,Total 0.4 mg/dL (0.2-1.3); Blood Urea Nitrogen 29 mg/dL (9-20); Calcium 8.1 mg/dL (8.4-10.2); Carbon Dioxide 30 mmol/L (22-30); Chloride 99 mmol/L (98-107); Estimated CRCL calculation 66 ml/min; Estimated Glomerular Filt Rate 57; Glucose 322 mg/dL (75-110); Potassium 4.3 mmol/L (3.4-5.0); Sodium 134 mmol/L (137-145)
[2020-09-02] MEDS: CENTRAL LINE FLUSH 10 ML IV PUSH ×3 (06:38→21:11)
[2020-09-02] MEDS: glipiZIDE 5 MG TABLET 10 MG PO (06:39)
[2020-09-02] MEDS: INSULIN ASPART (*BKC) 100 UNITS/ML SUB-Q ×2 (09:27→12:58)
[2020-09-02] MEDS: metFORMIN HCL 500 MG TABLET PO ×2 (09:28→17:24)
[2020-09-02] MEDS: amLODIPine BESYLATE 5 MG TABLET 10 MG PO (09:28)
[2020-09-02 11:47] LABS: Glucose Point of Care 294 (65-105)
[2020-09-02 14:00] VITALS: BP 137/69; PULSE 90; RESP 20; TEMP 36.3; O2SAT 100
--- NOTE | 2020-09-02 16:31 | PC.NURSE ---
2pm IV antibiotic leaked out, checked site/dressing and no signs of leaking. Placed call to Dr. Adamson and he ok'd an additional dose to give now.
--- NOTE | 2020-09-02 16:55 | PM.PNNEP ---
Progress Note: A&P Assessment and Plan (1) Chronic kidney disease, stage 3a: Code(s): N18.31 - Chronic kidney disease, stage 3a Status: Acute Assessment and Plan: baseline creatinine runs 1.4 - 1.7mg/dl due to diabetes and hypertension continue supportive therapy (2) Hyponatremia: Code(s): E87.1 - Hypo-osmolality and hyponatremia Status: Acute Assessment and Plan: sodium level is a little bit low probably more related to sugars and renal insufficiency evaluation to date negative (3) Hypertension: Code(s): I10 - Essential (primary) hypertension Status: Chronic Assessment and Plan: reasonable control at this time on amlodipine and hydrochlorothiazide ultimate plan would be to resume/restart losartan follow trend of hemodynamics (4) Anemia: Code(s): D64.9 - Anemia, unspecified Status: Acute Assessment and Plan: probably from acute illness and CKD follow trend for now (5) Diabetes: Code(s): E11.9 - Type 2 diabetes mellitus without complications Status: Chronic Assessment and Plan: follow accu-Cheks on sliding-scale insulin Will continue to follow. Subjective Date/time seen: 09/02/20 15:55 Appears to be doing quite well at the time of my visit; no new issues or problems voiced; therapy is going well; no events/issues overnight or earlier this AM. Exam Narrative: Exam Narrative: General: WD/WN male in NAD Heart: normal S1 and S2; no rub Lungs: clear to auscultation Abdomen: soft, nontender, nondistended, positive bowel sounds Extremities: no cyanosis or clubbing; no edema; s/p right BKA Skin: warm and dry Objective Data Vital Signs Vital Signs: Vital Signs Temp Pulse Resp BP Pulse Ox 09/02/20 14:00 36.3 C L 90 20 137/69 100 09/02/20 05:39 36.6 C 80 18 148/67 H 100 09/01/20 20:54 36.4 C L 81 20 149/74 H 98 Intake/Output Intake/Output: Intake & Output 08/30/20 08/31/20 09/01/20 09/02/20 23:59 23:59 23:59 23:59 Intake Total 1110 1110 390 530 Balance 1110 1110 390 530 Meds/Results Medications: Active Medications Generic Name Dose Route Start Last Admin Trade Name Freq PRN Reason Stop Dose Admin Acetaminophen 650 mg 08/28/20 22:20 Acetaminophen 325 Mg Tablet PO Q6H PRN Fever Hydrocodone Bitart/Acetaminophen 1 tab 08/29/20 08:15 Hydrocodone/Acetaminophen (*Crx) 5-325 Mg Tablet PO Q6H PRN Pain Rated 5 or Less Hydrocodone Bitart/Acetaminophen 2 tab 08/29/20 08:15 Hydrocodone/Acetaminophen (*Crx) 5-325 Mg Tablet PO Q6H PRN Pain Rated 6 or Greater Amlodipine Besylate 10 mg 08/29/20 09:00 09/02/20 09:28 Amlodipine Besylate 5 Mg Tablet PO 10 mg DAILY IS[facility] Administration Dextrose 12.5 gm 08/29/20 01:19 Dextrose 50% 25 Gm/50 Ml Syringe IV PUSH PRN PRN Hypoglycemia Protocol Glucagon 1 mg 08/29/20 01:19 Glucagon For Inj 1 Mg Vial IM PRN PRN Hypoglycemia Protocol Glucose 15 gm 08/29/20 01:19 Glucose Oral Gel 15 Gm Of Glucse In 37.5 Gm Tube PO PRN PRN Hypoglycemia Protocol Cefazolin Sodium 2 gm in 50 mls @ 100 mls/hr 08/29/20 06:00 09/02/20 14:41 Ancef 2 Gm/D5w 50 Ml IVPB 09/11/20 18:01 100 mls/hr Q8H ISAK Administration Dextrose 1,000 mls @ 100 mls/hr 08/29/20 01:19 Dextrose 5% 1,000 Ml IVPB PRN PRN Hypoglycemia Protocol Insulin Aspart 2 - 5 units 08/29/20 08:00 09/02/20 12:58 Insulin Aspart (*Bkc) 100 Units/Ml SUB-Q 3 units TIDWM [facility] Administration Protocol Insulin Aspart 10 units 09/03/20 09:00 Insulin Aspart (*Bkc) 100 Units/Ml 0.1 units/kg (10 units) SUB-Q DAILY [facility] Metformin HCl 500 mg 08/30/20 17:00 09/02/20 09:28 Metformin Hcl 500 Mg Tablet PO 500 mg BIDWM [facility] Administration Sodium Chloride 10 ml 08/29/20 06:00 09/02/20 14:46 Central Line Flush IV
[2020-09-02 17:12] LABS: Glucose Point of Care 181 (65-105)
--- NOTE | 2020-09-02 17:13 | WPDNEURORHBP ---
Subjective Date/time seen: 09/02/20 17:13 55 years old with below the knee amputation in addition to the underlying risk factors regularly diabetes mellitus. When involved the physical therapy and occupational therapy on a regular basis his vital signs are stable with pulse 90 respirations 20 blood pressure 130/69 pulse ox 100 on room air and temperature is 36.3? he will need an order for [facility] Review of Systems Review of Systems: All systems reviewed & are unremarkable except as noted in HPI and below Functional Status Ambulation Ability Ability to Ambulate 10 Feet: Contact Guard Ability to Ambulate 50 Feet With 2 Turns: Contact Guard Ability to Ambulate 150 Feet: Contact Guard Ambulation Assistive Devices: Walker, Wheeled Exam Const: General: cooperative, healthy appearing, comfortable, no acute distress, alert and awake Nutritional Appearance: average body habitus, well nourished and thin Limitations: other limitations Other: amputee HENMT: Head: normocephalic Face and sinus: normal facial exam Mouth: Yes Normal oral and palatal mucosa present Eyes: General: appearance normal, both eyes and all related structures Resp: Effort & Inspection: able to speak in complete sentences Auscultation: clear to auscultation bilaterally Cardio: Jugular venous distension: no JVD Rate: regular rate Rhythm: regular rhythm GI: Auscultation: normal bowel sounds Skin: General skin exam: no rashes or lesions noted Neuro: General: patient oriented x3 Cranial nerves: Yes CN's II-XII intact bilaterally, Yes Equal, round and reactive pupils present, Yes Nystagmus not present, Yes Midline tongue present and Yes Normal hearing present Cognition (Neuro): normal cognition Speech: normal speech Gait exam (Neuro): Assistive device used Motor exam (neuro): Pronator motor function not present and No tremor noted Sensory Exam: Sensory deficit (Neuro) Psych: Appearance: grossly normal Objective Data Vital Signs Vital Signs: Vital Signs - 24 hr 09/01/20 20:54 09/02/20 05:39 09/02/20 14:00 Temperature 36.4 C L 36.6 C 36.3 C L Pulse Rate 81 80 90 Respiratory Rate 20 18 20 Blood Pressure 149/74 H 148/67 H 137/69 Pulse Oximetry 98 100 100 Intake/Output Intake/Output: Intake & Output 08/30/20 08/31/20 09/01/20 09/02/20 23:59 23:59 23:59 23:59 Intake Total 1110 1110 390 530 Balance 1110 1110 390 530 Meds/Results Medications: Active Medications Generic Name Dose Route Start Last Admin Trade Name Freq PRN Reason Stop Dose Admin Acetaminophen 650 mg 08/28/20 22:20 Acetaminophen 325 Mg Tablet PO Q6H PRN Fever Hydrocodone Bitart/Acetaminophen 1 tab 08/29/20 08:15 Hydrocodone/Acetaminophen (*Crx) 5-325 Mg Tablet PO Q6H PRN Pain Rated 5 or Less Hydrocodone Bitart/Acetaminophen 2 tab 08/29/20 08:15 Hydrocodone/Acetaminophen (*Crx) 5-325 Mg Tablet PO Q6H PRN Pain Rated 6 or Greater Amlodipine Besylate 10 mg 08/29/20 09:00 09/02/20 09:28 Amlodipine Besylate 5 Mg Tablet PO 10 mg DAILY ISAK Administration Dextrose 12.5 gm 08/29/20 01:19 Dextrose 50% 25 Gm/50 Ml Syringe IV PUSH PRN PRN Hypoglycemia Protocol Glucagon 1 mg 08/29/20 01:19 Glucagon For Inj 1 Mg Vial IM PRN PRN Hypoglycemia Protocol Glucose 15 gm 08/29/20 01:19 Glucose Oral Gel 15 Gm Of Glucse In 37.5 Gm Tube PO PRN PRN Hypoglycemia Protocol Cefazolin Sodium 2 gm in 50 mls @ 100 mls/hr 08/29/20 06:00 09/02/20 14:41 Ancef 2 Gm/D5w 50 Ml IVPB 09/11/20 18:01 100 mls/hr Q8H ISAK Administration Dextrose 1,000 mls @ 100 mls/hr 08/29/20 01:19 Dextrose 5% 1,000 Ml IVPB PRN PRN Hypoglycemia Protocol Insulin Aspart 2 - 5 units 08/29/20 08:00 09/02/20 17:07 Insulin Aspart (*Bkc) 100 Units/Ml SUB-Q Not Given TIDWM [facility] Protocol Insulin Aspart 10 units 09/03/20 09:00 Insulin Aspart (*Bkc) 100 Uni
[2020-09-02 19:34] LABS: Albumin 2.4 g/dL (3.8-4.8); Alpha 1 Globulin 0.5 g/dL (0.2-0.3); Alpha 2 Globulin 0.9 g/dL (0.5-0.9); Beta 1 Globulin 0.4 g/dL (0.4-0.6); Gamma Globulin 1.2 g/dL (0.8-1.7); Protein, Total 5.8 g/dL (6.1-8.1)
[2020-09-02 20:17] VITALS: BP 147/72; PULSE 92; RESP 18; TEMP 36.8; O2SAT 100
[2020-09-02 21:20] LABS: Glucose Point of Care 354 (65-105)
[2020-09-03] MEDS: ceFAZolin 2 GM/D5W 50 ML 2 GM/50 ML BAG IVPB ×3 (05:18→21:00)
[2020-09-03] MEDS: CENTRAL LINE FLUSH 10 ML IV PUSH ×3 (05:19→21:51)
[2020-09-03 05:25] LABS: Glucose Point of Care 371 (65-105)
[2020-09-03 05:37] VITALS: BP 139/50; PULSE 83; RESP 20; TEMP 37.1; O2SAT 100
[2020-09-03] MEDS: INSULIN ASPART (*BKC) 100 UNITS/ML SUB-Q ×2 (07:42→17:17)
[2020-09-03] MEDS: amLODIPine BESYLATE 5 MG TABLET 10 MG PO (07:42)
[2020-09-03] MEDS: metFORMIN HCL 500 MG TABLET PO ×2 (07:42→17:16)
[2020-09-03] MEDS: INSULIN ASPART (*BKC) 100 UNITS/ML 10 UNITS SUB-Q (07:43)
[2020-09-03 10:02] LABS: Glucose Point of Care 121 (65-105)
--- NOTE | 2020-09-03 11:25 | WPDNEURORHBP ---
Subjective Date/time seen: 09/03/20 11:25 is status post right [id number] amputation with uncontrolled diabetes mellitus the insulin dosage is being adjusted according Review of Systems Review of Systems: All systems reviewed & are unremarkable except as noted in HPI and below Functional Status Ambulation Ability Ability to Ambulate 10 Feet: Contact Guard Ability to Ambulate 50 Feet With 2 Turns: Contact Guard Ability to Ambulate 150 Feet: Minimum Assistance X 1 Ambulation Assistive Devices: Walker, Wheeled Exam Const: General: cooperative, healthy appearing, comfortable and no acute distress Nutritional Appearance: average body habitus, well nourished and thin Orientation/consciousness: patient oriented x3 Limitations: other limitations HENMT: Head: normocephalic Ears: hearing grossly normal bilaterally General nose exam: Normal external nose present and No nasal discharge present Mouth: Yes Normal oral and palatal mucosa present Eyes: General: appearance normal, both eyes and all related structures Neck: Neck: full ROM Resp: Effort & Inspection: normal respiratory effort and able to speak in complete sentences Auscultation: clear to auscultation bilaterally Cardio: Rate: regular rate Rhythm: regular rhythm GI: Auscultation: normal bowel sounds Skin: General skin exam: no rashes or lesions noted Neuro: General: patient oriented x3 Cranial nerves: Yes CN's II-XII intact bilaterally Cognition (Neuro): normal cognition Motor exam (neuro): 5/5 motor strength present throughout Sensory Exam: Sensory deficit (Neuro) Deep tendon reflexes (DTR's): Right triceps reflex intensity grade: 1+, Left triceps reflex intensity grade: 1+, Rt Biceps (C5, C6): 1+, Left biceps reflex intensity grade: 1+, Right brachioradialis reflex intensity grade: 1+, Left brachioradialis reflex intensity grade: 1+, Right patellar reflex intensity grade: 1+ and Left patellar reflex intensity grade: 1+ Psych: Appearance: grossly normal Objective Data Vital Signs Vital Signs: Vital Signs - 24 hr 09/02/20 14:00 09/02/20 20:17 09/03/20 05:37 Temperature 36.3 C L 36.8 C 37.1 C Pulse Rate 90 92 83 Respiratory Rate 20 18 20 Blood Pressure 137/69 147/72 H 139/50 L Pulse Oximetry 100 100 100 Intake/Output Intake/Output: Intake & Output 02/06/09/01/20 09/02/20 09/03/20 23:59 23:59 23:59 23:59 Intake Total 1110 390 870 290 Balance 1110 390 870 290 Meds/Results Medications: Active Medications Generic Name Dose Route Start Last Admin Trade Name Freq PRN Reason Stop Dose Admin Acetaminophen 650 mg 08/28/20 22:20 Acetaminophen 325 Mg Tablet PO Q6H PRN Fever Hydrocodone Bitart/Acetaminophen 1 tab 08/29/20 08:15 Hydrocodone/Acetaminophen (*Crx) 5-325 Mg Tablet PO Q6H PRN Pain Rated 5 or Less Hydrocodone Bitart/Acetaminophen 2 tab 08/29/20 08:15 Hydrocodone/Acetaminophen (*Crx) 5-325 Mg Tablet PO Q6H PRN Pain Rated 6 or Greater Amlodipine Besylate 10 mg 08/29/20 09:00 09/03/20 07:42 Amlodipine Besylate 5 Mg Tablet PO 10 mg DAILY ISAK Administration Dextrose 12.5 gm 08/29/20 01:19 Dextrose 50% 25 Gm/50 Ml Syringe IV PUSH PRN PRN Hypoglycemia Protocol Glucagon 1 mg 08/29/20 01:19 Glucagon For Inj 1 Mg Vial IM PRN PRN Hypoglycemia Protocol Glucose 15 gm 08/29/20 01:19 Glucose Oral Gel 15 Gm Of Glucse In 37.5 Gm Tube PO PRN PRN Hypoglycemia Protocol Cefazolin Sodium 2 gm in 50 mls @ 100 mls/hr 08/29/20 06:00 09/03/20 05:48 Ancef 2 Gm/D5w 50 Ml IVPB 09/11/20 18:01 Infused Q8H ISAK Infusion Dextrose 1,000 mls @ 100 mls/hr 08/29/20 01:19 Dextrose 5% 1,000 Ml IVPB PRN PRN Hypoglycemia Protocol Insulin Aspart 2 - 5 units 08/29/20 08:00 09/03/20 07:42 Insulin Aspart (*Bkc) 100 Units/Ml SUB-Q 5 units TIDWM ISAK Administration Protocol Insulin Aspart 10 units
[2020-09-03 11:51] LABS: Glucose Point of Care 84 (65-105)
--- NOTE | 2020-09-03 12:05 | PM.PNNEP ---
Progress Note: A&P Assessment and Plan (1) Chronic kidney disease, stage 3a: Code(s): N18.31 - Chronic kidney disease, stage 3a Status: Acute Assessment and Plan: baseline creatinine runs 1.4 - 1.7mg/dl due to diabetes and hypertension continue supportive therapy (2) Hyponatremia: Code(s): E87.1 - Hypo-osmolality and hyponatremia Status: Acute Assessment and Plan: sodium level is a little bit low probably more related to sugars and renal insufficiency evaluation to date negative (3) Hypertension: Code(s): I10 - Essential (primary) hypertension Status: Chronic Assessment and Plan: reasonable control at this time on amlodipine and hydrochlorothiazide ultimate plan would be to resume/restart losartan follow trend of hemodynamics (4) Anemia: Code(s): D64.9 - Anemia, unspecified Status: Acute Assessment and Plan: probably from acute illness and CKD follow trend for now (5) Diabetes: Code(s): E11.9 - Type 2 diabetes mellitus without complications Status: Chronic Assessment and Plan: follow accu-Cheks on sliding-scale insulin Will continue to follow. Subjective Date/time seen: 09/03/20 12:05 Remains in good spirits at the time of my visit; states he is slowly adjusting to his situation with regard to his amputation; working with PT/OT as tolerated; no apparent distress noted. Exam Narrative: Exam Narrative: General: WD/WN male in NAD Heart: normal S1 and S2; no rub Lungs: clear to auscultation Abdomen: soft, nontender, nondistended, positive bowel sounds Extremities: no cyanosis or clubbing; no edema; s/p right BKA Skin: warm and intact Objective Data Vital Signs Vital Signs: Vital Signs - 24 hr 09/02/20 14:00 09/02/20 20:17 09/03/20 05:37 Temperature 36.3 C L 36.8 C 37.1 C Pulse Rate 90 92 83 Respiratory Rate 20 18 20 Blood Pressure 137/69 147/72 H 139/50 L Pulse Oximetry 100 100 100 Intake/Output Intake/Output: Intake & Output 08/31/20 09/01/20 09/02/20 09/03/20 23:59 23:59 23:59 23:59 Intake Total 1110 390 870 290 Balance 1110 390 870 290 Meds/Results Medications: Active Medications Generic Name Dose Route Start Last Admin Trade Name Freq PRN Reason Stop Dose Admin Acetaminophen 650 mg 08/28/20 22:20 Acetaminophen 325 Mg Tablet PO Q6H PRN Fever Hydrocodone Bitart/Acetaminophen 1 tab 08/29/20 08:15 Hydrocodone/Acetaminophen (*Crx) 5-325 Mg Tablet PO Q6H PRN Pain Rated 5 or Less Hydrocodone Bitart/Acetaminophen 2 tab 08/29/20 08:15 Hydrocodone/Acetaminophen (*Crx) 5-325 Mg Tablet PO Q6H PRN Pain Rated 6 or Greater Amlodipine Besylate 10 mg 08/29/20 09:00 09/03/20 07:42 Amlodipine Besylate 5 Mg Tablet PO 10 mg DAILY ISAK Administration Dextrose 12.5 gm 08/29/20 01:19 Dextrose 50% 25 Gm/50 Ml Syringe IV PUSH PRN PRN Hypoglycemia Protocol Glucagon 1 mg 08/29/20 01:19 Glucagon For Inj 1 Mg Vial IM PRN PRN Hypoglycemia Protocol Glucose 15 gm 08/29/20 01:19 Glucose Oral Gel 15 Gm Of Glucse In 37.5 Gm Tube PO PRN PRN Hypoglycemia Protocol Cefazolin Sodium 2 gm in 50 mls @ 100 mls/hr 08/29/20 06:00 09/03/20 05:48 Ancef 2 Gm/D5w 50 Ml IVPB 09/11/20 18:01 Infused Q8H ISAK Infusion Dextrose 1,000 mls @ 100 mls/hr 08/29/20 01:19 Dextrose 5% 1,000 Ml IVPB PRN PRN Hypoglycemia Protocol Insulin Aspart 2 - 5 units 08/29/20 08:00 09/03/20 07:42 Insulin Aspart (*Bkc) 100 Units/Ml SUB-Q 5 units TIDWM [facility] Administration Protocol Insulin Aspart 10 units 09/03/20 09:00 09/03/20 07:43 Insulin Aspart (*Bkc) 100 Units/Ml 0.1 units/kg (10 units) 10 units SUB-Q Administration DAILY [facility] Metformin HCl 500 mg 08/30/20 17:00 09/03/20 07:42 Metformin Hcl 500 Mg Tablet PO 500 mg BIDWM [facility] Adm
--- NOTE | 2020-09-03 12:06 | PCNFU ---
Nutrition Follow-Up Complete: Increase protein needs related to wound as evidenced by right below the knee amputation Goal: Meet nutritional needs. Patient is consuming 100% of his meals. No new goal at this time. Pt current nutrition is Diabetic Consistent Carbohydrate Diet with Rufus BID. Last recorded weight is 100 kg. Recommend re-weighing patient. Bowel Motility: + BM 09/02 Labs Reviewed: Hgb 8.5, Hct 26.4, GFR 57, BUN 29, Cr 1.3 Meds Noted: Norvasc, Novolog, [place], Glucagon Additional Notes: Spoke with patient. Patient reports having a great appetite consuming 100% of his meals. Very optimistic and motivated. Monitor labs, medications, weight, and oral intake every 5 days.
--- NOTE | 2020-09-03 12:32 | PCNSR ---
On 09/03/20, the student, Chelle Quintero, provided care and completed [facility] documentation on this patient. I have reviewed the student's documentation and agree with the findings.
--- NOTE | 2020-09-03 12:36 | PC.NURSE ---
Per Dr. Dallas, do not need to do any additional cortisol testing; only do once.
[2020-09-03 14:00] VITALS: BP 146/62; PULSE 94; RESP 20; TEMP 36.6; O2SAT 100
--- NOTE | 2020-09-03 14:10 | PCPTNOTE ---
Joanne Boo PTA completed an inpatient rehab wheelchair evaluation on Handy Potts on 09/03/2020. The patient is unable to safely and independently ambulate household distances due to their current impairments. Their diagnosis is R. BKA and their impairments include decreased strength, decreased endurance, decreased range of motion, decreased balance, lower extremity weakness, and ataxia. Handy's weight bearing status is non weight-bearing on Right Residual Limb and full weight-bearing on L lower extremity . The patient demonstrates significant functional mobility limitations that impair their ability to participate in mobility-related activities of daily living (MRADLs), including toileting, feeding, dressing, grooming, and bathing in the customary locations in the home. These limitations cannot be sufficiently resolved by the use of an appropriately fitted cane or walker. It is recommended that the patient utilize a wheelchair for functional mobility within the home in order to facilitate optimal safety, independence and participation in all MRADL's and adequately access their home environment on a regular basis. The patient's home provides adequate access between rooms, maneuvering space, and surfaces to accommodate the recommended wheelchair. The use of a wheelchair for functional mobility is strongly recommended and the patient is receptive to using the wheelchair. The use of this wheelchair will significantly improve the patient's ability to participate in MRADLS and the patient will use it on a regular basis in the home. This will facilitate optimal safety, independence, and participation. The patient has demonstrated sufficient physical and mental capabilities needed to safely propel a manual wheelchair that is provided in the home during a typical day. Recommended Wheelchair Frame: STANDARD Recommended Wheelchair Size: 18 X 18 Recommended Wheelchair Cushion: STANDARD Wheelchair Leg Recommendations: LEFT SWING AWAY LEG REST, RIGHT SWING AWAY RESIDUAL LIMB SUPPORT LEG REST -Anti-tippers are recommended due to patient demonstrating increased risk for falls. They would benefit from anti-tippers with added safety and stabilization. -Adjustable arm height is recommended because the patient requires an arm height that is different than that which is available using non-adjustable arms. The patient spends at least 2 hours per day in the wheelchair. Joanne Boo PTA 09/03/20 Evaluating Therapist Date I agree with and certify that the above recommendation is medically necessary. Referring Physician Date I agree with and certify that the above recommendation is medically necessary. Referring Physician Date
--- NOTE | 2020-09-03 16:25 | PCDIET ---
Spoke with conservation educator and her recommendation is to consult hospitalist to manage his insulin needs.
[2020-09-03 16:48] LABS: Glucose Point of Care 364 (65-105)
--- NOTE | 2020-09-03 17:47 | PC.NURSE ---
Late entry: At 1500 went in to change dressing and noted large amount dried and fresh blood, and when uncovered found 5 cheli had pulled away and incision was open with widest point in middle being less than 1/2 in. (Making note that patient the day before on 09/02 had bumped stump slightly against railing when practicing with therapy on steps. He stated did not not feel he hit hard and that it just hurt at bit when he first did it and no further complaints throughout the day or today and no discharge noted). Cleaned with sterile saline, applied steri strips, 4x4s, fluff gauze, and wrapped firmly with kerlex and jeremy bandage. Placed call to Dr. Adamson and to Dr. Dunn's office as well. Spoke with Dr. Dunn's nurse and she relayed as well to regarding his incision. She stated not unusual and to keep site clean and dry and monitor for any signs of infection or not healing (slough, etc.); and may remove any of the loose cheli, and no need for steri strips. If anything changes, call the office and they will see him sooner; otherwise they scheduled an appointment for 09/24 at 10:15 ( will be out week of 09/16).
--- NOTE | 2020-09-03 18:42 | PC.NURSE ---
Spoke with certified breastfeeding educator and she recommended to consult hospitalist for elevated blood sugars and insulin management. Sharee responed and said to put under Dr. Joiner and that she would be in to see him.
[2020-09-03 21:52] LABS: Glucose Point of Care 342 (65-105)
[2020-09-03 22:00] VITALS: BP 147/66; PULSE 80; RESP 16; TEMP 37; O2SAT 100
--- NOTE | 2020-09-04 00:10 | WPDCN ---
Assessment and Plan Assessment and plan (1) Type 2 diabetes mellitus with hyperglycemia: Code(s): E11.65 - Type 2 diabetes mellitus with hyperglycemia <Sharee GraffJAVIER-C - Last Filed: 09/05/20 05:07> Status: Acute <Sharee Graff PA-C - Last Filed: 09/05/20 05:07> (2) Hypertension: Code(s): I10 - Essential (primary) hypertension <Sharee Graff PA-C - Last Filed: 09/05/20 05:07> Status: Chronic <Sharee Graff PA-C - Last Filed: 09/05/20 05:07> (3) Chronic kidney disease: Code(s): N18.9 - Chronic kidney disease, unspecified <Sharee Graff PA-C - Last Filed: 09/05/20 05:07> Status: Acute <Sharee Graff PA-C - Last Filed: 09/05/20 05:07> (4) Chronic anemia: Code(s): D64.9 - Anemia, unspecified <Sharee Graff PA-C - Last Filed: 09/05/20 05:07> Status: Acute <Sharee Graff PA-C - Last Filed: 09/05/20 05:07> (5) Peripheral neuropathy: Code(s): G62.9 - Polyneuropathy, unspecified <Sharee Graff PA-C - Last Filed: 09/05/20 05:07> Status: Acute <Sharee Graff PA-C - Last Filed: 09/05/20 05:07> (6) Left foot drop: Code(s): M21.372 - Foot drop, left foot <Sharee Tonydanika PA-C - Last Filed: 09/05/20 05:07> Status: Inactive <Sharee Tonydanika PA-C - Last Filed: 09/05/20 05:07> Additional Plan The rise in his glucose is likely due to the fact that he is no longer taking glipizide, which he was taking prior to his most recent hospitalization. In fact he was started on Lantus during the hospitalization a couple of weeks ago, and that has not been continued and I assume this is because his diet has been much more strict since he has been in the hospital. For now I am going to continue with moderate dose sliding scale insulin and restart glipizide at 10 milligrams daily tomorrow to see how he responds, with close monitoring of his renal function. Will repeat hemoglobin A1c to see where he is sitting; he may need to be started back on Lantus. We need good glucose control for good wound healing. Check CBC and BMP tomorrow to see how we are sitting with regards to his renal function and anemia. His blood pressures were reviewed and they are not at goal, consider dosing changes of his current medications. Thank you for allowing us to participate in this patient's care. Please do not hesitate to contact us with any questions. We will follow with you. Supervising physician for this medical consultation is Dr. Angelito Joiner. <Sharee Graff PA-C - Last Filed: 09/05/20 05:07> HPI Data of Consult Date/Time: 09/04/20 00:10 <Sharee Graff PA-C - Last Filed: 09/05/20 05:07> Requesting Physician: Jose Ramon Adamson MD <Sharee Graff PA-C - Last Filed: 09/05/20 05:07> Primary Care Provider: CHERIE CHERRY, LINDA <Sharee Graff PA-C - Last Filed: 09/05/20 05:07> Consult Narrative Narrative: This a 55-year-old male currently undergoing rehab at [facility] status post right [id number] amputation at [facility] whom the hospitalist service has been consulted for glucose management. His medical history is significant for type 2 diabetes mellitus, peripheral neuropathy, hypertension, chronic kidney disease, and chronic anemia. The patient is known to myself as I admitted him to the on 08/20/2020 with sepsis secondary to a necrotic wound in osteomyelitis of the right foot. He was ultimately transferred to [facility] where he had a right womqz-wla-ybny amputation. He is now in [facility] for rehabilitation. Since his stay his glucose has not been well controlled, in the 200s to 300s. Looking back he was previously on glipizide and metformin, however is only been receiving metformin since being discharged from [facility]. It is noted that he was on Lantus for a few days when he was admitted to us last
[2020-09-04] MEDS: ceFAZolin 2 GM/D5W 50 ML 2 GM/50 ML BAG IVPB ×3 (05:18→21:43)
[2020-09-04 06:00] VITALS: BP 154/71; PULSE 80; RESP 16; TEMP 36.7; O2SAT 99
[2020-09-04] MEDS: CENTRAL LINE FLUSH 10 ML IV PUSH ×3 (06:00→21:43)
[2020-09-04 06:03] LABS: Glucose Point of Care 314 (65-105)
[2020-09-04 06:07] LABS: Anion Gap 4 mmol/L (8-16); Blood Urea Nitrogen 38 mg/dL (9-20); Calcium 8.2 mg/dL (8.4-10.2); Carbon Dioxide 31 mmol/L (22-30); Chloride 100 mmol/L (98-107); Estimated CRCL calculation 66 ml/min; Estimated Glomerular Filt Rate 57; Glucose 304 mg/dL (75-110); Potassium 4.1 mmol/L (3.4-5.0); Sodium 135 mmol/L (137-145)
[2020-09-04 06:12] LABS: Hematocrit 24.4 % (42.0-52.0); Mean Corpuscular HGB Conc 32.8 g/dl (32-36); Mean Corpuscular Hemoglobin 30.8 pg (26-34); Mean Corpuscular Volume 93.8 fl (80-100); Platelet Count Result 268 k/mm3 (150-375); Red Cell Distribution Width 12.9 % (11.5-14.5); White Blood Count 4.4 K/mm3 (4.5-10.0)
[2020-09-04 06:13] LABS: Hemoglobin A1C 8.1 % (<5.7)
[2020-09-04] MEDS: glipiZIDE 5 MG TABLET 10 MG PO (07:17)
[2020-09-04] MEDS: amLODIPine BESYLATE 5 MG TABLET 10 MG PO (08:27)
[2020-09-04] MEDS: INSULIN ASPART (*BKC) 100 UNITS/ML 10 UNITS SUB-Q (08:28)
[2020-09-04] MEDS: metFORMIN HCL 500 MG TABLET PO ×2 (08:28→17:49)
[2020-09-04] MEDS: INSULIN ASPART (*BKC) 100 UNITS/ML SUB-Q ×2 (08:28→17:49)
--- NOTE | 2020-09-04 10:09 | WPDNEURORHBP ---
Subjective Date/time seen: 09/04/20 10:09 Patient will need right amputee she Functional Status Ambulation Ability Ability to Ambulate 10 Feet: Contact Guard Ability to Ambulate 50 Feet With 2 Turns: Contact Guard Ability to Ambulate 150 Feet: Minimum Assistance X 1 Ambulation Assistive Devices: Walker, Wheeled Transfers Ability Ability to Transfer In/Out of Chair: Standby Assistance Objective Data Vital Signs Vital Signs: Vital Signs - 24 hr 09/03/20 14:00 09/03/20 22:00 09/04/20 06:00 Temperature 36.6 C 37.0 C 36.7 C Pulse Rate 94 80 80 Respiratory Rate 20 16 16 Blood Pressure 146/62 H 147/66 H 154/71 H Pulse Oximetry 100 100 99 Intake/Output Intake/Output: Intake & Output 09/01/20 09/02/20 09/03/20 09/04/20 23:59 23:59 23:59 23:59 Intake Total 390 870 870 290 Balance 390 870 870 290 Meds/Results Medications: Active Medications Generic Name Dose Route Start Last Admin Trade Name Freq PRN Reason Stop Dose Admin Acetaminophen 650 mg 08/28/20 22:20 Acetaminophen 325 Mg Tablet PO Q6H PRN Fever Hydrocodone Bitart/Acetaminophen 1 tab 08/29/20 08:15 Hydrocodone/Acetaminophen (*Crx) 5-325 Mg Tablet PO Q6H PRN Pain Rated 5 or Less Hydrocodone Bitart/Acetaminophen 2 tab 08/29/20 08:15 Hydrocodone/Acetaminophen (*Crx) 5-325 Mg Tablet PO Q6H PRN Pain Rated 6 or Greater Amlodipine Besylate 10 mg 08/29/20 09:00 09/04/20 08:27 Amlodipine Besylate 5 Mg Tablet PO 10 mg DAILY ISAK Administration Dextrose 12.5 gm 08/29/20 01:19 Dextrose 50% 25 Gm/50 Ml Syringe IV PUSH PRN PRN Hypoglycemia Protocol Dextrose 12.5 gm 09/04/20 00:09 Dextrose 50% 25 Gm/50 Ml Syringe IV PUSH PRN PRN Hypoglycemia Protocol Glipizide 10 mg 09/04/20 07:30 09/04/20 07:17 Glipizide 5 Mg Tablet PO 10 mg DAILY@0730 ISAK Administration Glucagon 1 mg 08/29/20 01:19 Glucagon For Inj 1 Mg Vial IM PRN PRN Hypoglycemia Protocol Glucagon 1 mg 09/04/20 00:09 Glucagon For Inj 1 Mg Vial IM PRN PRN Hypoglycemia Protocol Glucose 15 gm 08/29/20 01:19 Glucose Oral Gel 15 Gm Of Glucse In 37.5 Gm Tube PO PRN PRN Hypoglycemia Protocol Glucose 15 gm 09/04/20 00:09 Glucose Oral Gel 15 Gm Of Glucse In 37.5 Gm Tube PO PRN PRN Hypoglycemia Protocol Cefazolin Sodium 2 gm in 50 mls @ 100 mls/hr 08/29/20 06:00 09/04/20 05:53 Ancef 2 Gm/D5w 50 Ml IVPB 09/11/20 18:01 Infused Q8H ISAK Infusion Dextrose 1,000 mls @ 100 mls/hr 08/29/20 01:19 Dextrose 5% 1,000 Ml IVPB PRN PRN Hypoglycemia Protocol Dextrose 1,000 mls @ 100 mls/hr 09/04/20 00:09 Dextrose 5% 1,000 Ml IVPB PRN PRN Hypoglycemia Protocol Insulin Aspart 2 - 5 units 08/29/20 08:00 09/04/20 08:28 Insulin Aspart (*Bkc) 100 Units/Ml SUB-Q 4 units TIDWM ISAK Administration Protocol Insulin Aspart 10 units 09/03/20 09:00 09/04/20 08:28 Insulin Aspart (*Bkc) 100 Units/Ml 0.1 units/kg (10 units) 10 units SUB-Q Administration DAILY ISAK Insulin Aspart 3 - 6 units 09/04/20 08:00 Insulin Aspart (*Bkc) 100 Units/Ml SUB-Q TIDWM [facility] Protocol Metformin HCl 500 mg 08/30/20 17:00 09/04/20 08:28 Metformin Hcl 500 Mg Tablet PO 500 mg BIDWM ISAK Administration Sodium Chloride 10 ml 08/29/20 06:00 09/04/20 06:00 Central Line Flush IV PUSH 10 ml Q8HR ISAK Administration Sodium Chloride 10 ml 08/29/20 02:03 Central Line Flush IV PUSH PRN PRN with TPN bag changes Sodium Chloride 20 ml 08/29/20 02:03 08/30/20 06:01 Central Line Flush IV PUSH 20 ml PRN PRN Administration after blood draws Radiology Results: ITS Impressions Chest X-Ray 08/28/20 21:46 Impression: 1: Bibasilar infiltrates may represent atelectasis or pneumonia. Labs Labs: Laboratory Results - last 24 h
--- NOTE | 2020-09-04 11:21 | PCDIET ---
Nutrition Follow-Up Complete: Nutrition Diagnosis: Increase protein needs related to wound as evidenced by right below the knee amputation. Nutrition Goal: Meet nutritional needs. Goal met. Patient consuming 75-100% of meals on diabetic diet. Hospitalist service managing blood sugars. Recommend continuing Rufus BID. Last recorded weight is 100 kg. Recommend weekly weights. Bowel Motility: Last documented BM on 09/02/20. Labs Reviewed: Hgb (8.0), Hct (24.4), Glu (314), BUN (38), Na (135), Ca (8.2) Meds Noted: Norvasc, Cefazolin, Glipizide, Novolog, Glucophage Additional Notes: Integumentary notes reviewed. Will continue to monitor with same goal. Nutrition Monitoring and Evaluation: Follow up every 7 days.
[2020-09-04 11:49] LABS: Glucose Point of Care 75 (65-105)
[2020-09-04 14:00] VITALS: BP 142/59; PULSE 88; RESP 20; TEMP 36.9; O2SAT 100
--- NOTE | 2020-09-04 14:17 | WPDNEURORHBP ---
Subjective Date/time seen: 09/04/20 14:17 Is status post right [id number] amputation with underlying diabetes mellitus medical consultation obtained because of the fluctuating hyperglycemia. Patient had been on glipizide which was taken off any started as insulin that was the main reason attributes it to and he has been restarted on insulin along with the glipizide has also been seen by the nephrology is a kidney disease stage 3 a with baseline creatinine of 1.4 to 1.7 again secondary to diabetes mellitus and hypertension treatment has been continued as such, hyponatremia has been attributed to hypo osmolality because of the hyperglycemia and renal insufficiency, patient remains stable with temp of 36.7? pulse 80 respirations 16 pulse ox 99 and blood pressure 154/71 , recent labs with hemoglobin A1c of 8.1 and BUN of 38, back on his glipizide 10 mg daily along with the insulin Lantus 10units subcu at night and NovoLog 3 to 6 units subcu t.i.d. with scheduled me Review of Systems Review of Systems: All systems reviewed & are unremarkable except as noted in HPI and below Functional Status Ambulation Ability Ability to Ambulate 10 Feet: Contact Guard Ability to Ambulate 50 Feet With 2 Turns: Contact Guard Ability to Ambulate 150 Feet: Minimum Assistance X 1 Ambulation Assistive Devices: Walker, Wheeled Transfers Ability Ability to Transfer In/Out of Chair: Standby Assistance Exam Const: General: cooperative, healthy appearing, comfortable and no acute distress Nutritional Appearance: average body habitus and thin Orientation/consciousness: patient oriented x3 Limitations: other limitations HENMT: Head: normocephalic Ears: hearing grossly normal bilaterally General nose exam: No nasal discharge present Face and sinus: normal facial exam Eyes: General: appearance normal, both eyes and all related structures Neck: Neck: full ROM Resp: Effort & Inspection: normal respiratory effort Cardio: Rate: regular rate Rhythm: regular rhythm GI: Auscultation: normal bowel sounds Neuro: General: patient oriented x3 Cranial nerves: Yes CN's II-XII intact bilaterally Cognition (Neuro): normal cognition Speech: normal speech Gait exam (Neuro): Assisted gait required Motor exam (neuro): 5/5 motor strength present throughout and Pronator motor function not present Sensory Exam: Sensory deficit (Neuro) Deep tendon reflexes (DTR's): Right triceps reflex intensity grade: 1+, Left triceps reflex intensity grade: 1+, Rt Biceps (C5, C6): 1+, Left biceps reflex intensity grade: 1+, Right brachioradialis reflex intensity grade: 1+, Left brachioradialis reflex intensity grade: 1+, Right patellar reflex intensity grade: 1+ and Left patellar reflex intensity grade: 1+ Plantar Reflex Responses: downgoing: left Psych: Appearance: grossly normal Objective Data Vital Signs Vital Signs: Vital Signs - 24 hr 09/03/20 22:00 09/04/20 06:00 Temperature 37.0 C 36.7 C Pulse Rate 80 80 Respiratory Rate 16 16 Blood Pressure 147/66 H 154/71 H Pulse Oximetry 100 99 Intake/Output Intake/Output: Intake & Output 09/01/20 09/02/20 09/03/20 09/04/20 23:59 23:59 23:59 23:59 Intake Total 390 870 870 290 Balance 390 870 870 290 Meds/Results Medications: Active Medications Generic Name Dose Route Start Last Admin Trade Name Freq PRN Reason Stop Dose Admin Acetaminophen 650 mg 08/28/20 22:20 Acetaminophen 325 Mg Tablet PO Q6H PRN Fever Hydrocodone Bitart/Acetaminophen 1 tab 08/29/20 08:15 Hydrocodone/Acetaminophen (*Crx) 5-325 Mg Tablet PO Q6H PRN Pain Rated 5 or Less Hydrocodone Bitart/Acetaminophen 2 tab 08/29/20 08:15 Hydrocodone/Acetaminophen (*Crx) 5-325 Mg Tablet PO Q6H PRN Pain Rated 6 or Greater Amlodipine Besylate 10 mg 08/29/20 09:00 09/04/20 08:27 Amlodipine Besylate 5 Mg Tablet PO 10 mg DAILY ISAK Administration Dextrose 12.5 gm 08/29/20 01:19 Dextrose 50% 25 Gm/50 Ml S
--- NOTE | 2020-09-04 16:13 | PM.IMPN ---
Progress Note: A&P Assessment and Plan (1) Type 2 diabetes mellitus with hyperglycemia: Code(s): E11.65 - Type 2 diabetes mellitus with hyperglycemia <Dany Mejia PA-C - Last Filed: 09/04/20 16:32> Status: Acute <Dany Mejia PA-C - Last Filed: 09/04/20 16:32> Assessment and Plan: The rise in his glucose is likely due to the fact that he is no longer taking glipizide, which he was taking prior to his most recent hospitalization, as well as his healing surgical wound. He was started on Lantus during his hospitalization a couple of weeks ago, and that has not been continued possibly because his diet has been much more strict since he has been in the hospital. A1c 8.1 Accuchecks ACHS, hypoglycemia protocol, correctional insulin, diabetic diet He has been placed back on glipizide 10 mg daily, continue Will do Lantus 10 u QHS for now; adjust accordingly We discussed trending his sugars and adjusting his medications accordingly. He will follow up with his PCP after discharge for further management <Dany Mejia PA-C - Last Filed: 09/04/20 16:32> (2) Chronic kidney disease, stage 3a: Code(s): N18.31 - Chronic kidney disease, stage 3a <Dany Mejia PA-C - Last Filed: 09/04/20 16:32> Status: Acute <REMIGIO Ponce Last Filed: 09/04/20 16:32> Assessment and Plan: Nephrology following and appreciate recommendations. Appears Cr is at baseline. 1.30 today Monitor kidney function <Dany Mejia PA-C - Last Filed: 09/04/20 16:32> (3) Hypertension: Code(s): I10 - Essential (primary) hypertension <Dany Mejia PA-C - Last Filed: 09/04/20 16:32> Status: Chronic <Dany Mejia PA-C - Last Filed: 09/04/20 16:32> Assessment and Plan: Most recent BP 140s sys Continue home amlodipine for now BP has been on the higher side, so will resume home HCTZ of 12.5 mg daily Continue to hold Losartan per Nephrology rec Monitor closely <Dany Mejia PA-C - Last Filed: 09/04/20 16:32> Additional Plan Thank you for allowing the Hospitalist team to care for this patient during their stay. We will continue to follow with you. Please call with any questions <Dany Mejia PA-C - Last Filed: 09/04/20 16:32> Subjective Date/time seen: 09/04/20 16:13 .This is a Hospitalist Consult Progress Note <Dany Mejia PA-C - Last Filed: 09/04/20 16:32> Interval history: Patient is a 55 yo M with history of CKDIII, HTN, peripheral neuropathy, DMII, and s/p right BKA ([facility]) who is currently undergoing rehab at [facility]. Hospitalist service consulted for glucose management. Patient states he has been doing well with rehab but is concerned about discharge on 09/12; he was advised to discuss with primary service. Otherwise no complaints for me. He notes he usually has had great glycemic control, with A1c typically running in the 6's prior to his diabetic foot infection with glipizide 10 mg daily and metformin 500 mg Q12hr. Currently, denies f/c/s, dizziness, lightheadedness, cp/palpitations, sob/cough, n/v/d/c, abd pain, changes in BMs, dysuria, hematuria, cloudy urine, calf pain/swelling. <Dany Mejia PA-C - Last Filed: 09/04/20 16:32> Review of Systems Review of Systems: All systems reviewed & are unremarkable except as noted in HPI and below <REMIGIO Ponce Last Filed: 09/04/20 16:32> Exam Narrative: Exam Narrative: General: Patient sitting up in wheelchair in no acute distress. HEENT: Normocephalic, EOMI, oral mucosa moist. Cardiovascular: Rate and rhythm are regular. No notable murmur, rub, or gallop. Respiratory: Lungs clear to auscultation all patel. Non-labored breathing. Abdomen: Soft, non-tender, non-distended, bowel sounds present. Extremities: Peripheral pulses
[2020-09-04 17:14] LABS: Glucose Point of Care 282 (65-105)
[2020-09-04 20:00] VITALS: PULSE 89; RESP 16; O2SAT 100
[2020-09-04 21:34] LABS: Glucose Point of Care 416 (65-105)
[2020-09-04] MEDS: INSULIN GLARGINE (*BKC) 100 UNITS/ML 10 UNITS SUB-Q (21:43)
[2020-09-04] MEDS: INSULIN ASPART (*BKC) 100 UNITS/ML 8 UNITS SUB-Q (21:51)
[2020-09-04 22:00] VITALS: BP 140/48; PULSE 89; RESP 16; TEMP 36.6; O2SAT 100
[2020-09-05 00:40] LABS: Glucose Point of Care 276 (65-105)
--- NOTE | 2020-09-05 02:57 | PC.NURSE ---
09/04/2020 at 2130-- accu check [phone], called Sharee, new orders received at this time. TDialRNC
[2020-09-05 06:00] VITALS: BP 127/51; PULSE 82; RESP 16; TEMP 36.8; O2SAT 100
[2020-09-05] MEDS: ceFAZolin 2 GM/D5W 50 ML 2 GM/50 ML BAG IVPB ×3 (06:15→21:35)
[2020-09-05 06:51] LABS: Glucose Point of Care 198 (65-105)
[2020-09-05 07:03] LABS: Alanine Aminotransferase 12 U/L (4-50); Albumin Level 2.9 g/dL (3.5-5.1); Alkaline Phosphatase 72 U/L (38-126); Anion Gap 3 mmol/L (8-16); Aspartate Amino Transferase 26 U/L (17-59); Bilirubin,Total 0.3 mg/dL (0.2-1.3); Blood Urea Nitrogen 35 mg/dL (9-20); Calcium 8.1 mg/dL (8.4-10.2); Carbon Dioxide 32 mmol/L (22-30); Chloride 102 mmol/L (98-107); Estimated CRCL calculation 71 ml/min; Estimated Glomerular Filt Rate > 60; Glucose 198 mg/dL (75-110); Potassium 3.9 mmol/L (3.4-5.0); Sodium 137 mmol/L (137-145)
[2020-09-05 07:16] LABS: Basophils Absolute Auto 0.1 K/mm3 (0.0-0.1); Basophils Percent Auto 1.6 % (0.2-1.2); Eosinophils Absolute Auto 0.2 K/mm3 (0-0.3); Eosinophils Percent Auto 5.2 % (0-4.4); Hematocrit 23.9 % (42.0-52.0); Hemoglobin 7.7 g/dL (14.0-18.0); Immature Granulocyte Absolute 0.01 K/mm3 (0.00-0.031); Immature Granulocyte Percent A 0.2 % (0-0.5); Lymphocytes Absolute Auto 0.89 K/mm3 (0.9-3.2); Lymphocytes Percent Auto 20.3 % (18.3-44.2); Mean Corpuscular HGB Conc 32.2 g/dl (32-36); Mean Corpuscular Hemoglobin 29.8 pg (26-34); Mean Corpuscular Volume 92.6 fl (80-100); Mean Platelet Volume 9.1 fl (7.4-10.4); Monocytes Absolute Auto 0.3 K/mm3 (0.1-0.6); Monocytes Percent Auto 6.6 % (2.6-8.5); Neutrophils Absolute Auto 2.9 K/mm3 (1.3-6.7); Neutrophils Percent Auto 66.1 % (45.5-73.1); Platelet Count Result 252 k/mm3 (150-375); Red Blood Count 2.58 M/mm3 (4.6-6.20); Red Cell Distribution Width 12.9 % (11.5-14.5); White Blood Count 4.4 K/mm3 (4.5-10.0)
[2020-09-05 08:00] VITALS: PULSE 82; RESP 16; O2SAT 100
[2020-09-05] MEDS: metFORMIN HCL 500 MG TABLET PO ×2 (08:28→19:24)
[2020-09-05] MEDS: hydroCHLOROthiazide 12.5 MG CAPSULE PO (08:28)
[2020-09-05] MEDS: glipiZIDE 5 MG TABLET 10 MG PO (08:28)
[2020-09-05] MEDS: amLODIPine BESYLATE 5 MG TABLET 10 MG PO (08:28)
[2020-09-05 11:46] LABS: Glucose Point of Care 286 (65-105)
[2020-09-05] MEDS: INSULIN ASPART (*BKC) 100 UNITS/ML SUB-Q (11:52)
[2020-09-05 14:00] VITALS: BP 132/65; PULSE 91; RESP 20; TEMP 36.6; O2SAT 100
[2020-09-05] MEDS: CENTRAL LINE FLUSH 10 ML IV PUSH ×3 (14:00→21:36)
--- NOTE | 2020-09-05 15:36 | PM.PNNEP ---
Progress Note: A&P Assessment and Plan (1) Chronic kidney disease, stage 3a: Code(s): N18.31 - Chronic kidney disease, stage 3a Status: Acute Assessment and Plan: baseline creatinine runs 1.4 - 1.7mg/dl - creatinine currently better thab baseline due to diabetes and hypertension continue supportive therapy (2) Hyponatremia: Code(s): E87.1 - Hypo-osmolality and hyponatremia Status: Acute Assessment and Plan: sodium normalized probably more related to elevated sugars and renal insufficiency evaluation to date negative (3) Hypertension: Code(s): I10 - Essential (primary) hypertension Status: Chronic Assessment and Plan: reasonable control at this time on amlodipine and hydrochlorothiazide ultimate plan would be to resume/restart losartan as an outpatient follow trend of hemodynamics (4) Anemia: Code(s): D64.9 - Anemia, unspecified Status: Acute Assessment and Plan: probably from acute illness and CKD follow trend for now (5) Diabetes: Code(s): E11.9 - Type 2 diabetes mellitus without complications Status: Chronic Assessment and Plan: follow accu-Cheks on sliding-scale insulin Will continue to follow. Subjective Date/time seen: 09/05/20 15:36 He seems to be doing reasonably well at the time of my visit -- working on putting a puzzle together at the time of my visit; working with therapy as tolerated; no apparent distress voiced at this time; blood sugars doing better with current interventions. Exam Narrative: Exam Narrative: General: WD/WN male in NAD Heart: normal S1 and S2; no rub Lungs: clear to auscultation Abdomen: soft, nontender, nondistended, positive bowel sounds Extremities: no cyanosis or clubbing; no edema; s/p right BKA Skin: no rash or nodules Objective Data Vital Signs Vital Signs: Vital Signs Temp Pulse Resp BP Pulse Ox 09/05/20 14:00 36.6 C 91 20 132/65 100 09/05/20 08:00 82 16 100 09/05/20 06:00 36.8 C 82 16 127/51 L 100 09/04/20 22:00 36.6 C 89 16 140/48 L 100 09/04/20 20:00 89 16 100 Intake/Output Intake/Output: Intake & Output 09/02/20 09/03/20 09/04/20 09/05/20 23:59 23:59 23:59 23:59 Intake Total 870 870 870 530 Balance 870 870 870 530 Meds/Results Medications: Active Medications Generic Name Dose Route Start Last Admin Trade Name Freq PRN Reason Stop Dose Admin Acetaminophen 650 mg 08/28/20 22:20 Acetaminophen 325 Mg Tablet PO Q6H PRN Fever Hydrocodone Bitart/Acetaminophen 1 tab 08/29/20 08:15 Hydrocodone/Acetaminophen (*Crx) 5-325 Mg Tablet PO Q6H PRN Pain Rated 5 or Less Hydrocodone Bitart/Acetaminophen 2 tab 08/29/20 08:15 Hydrocodone/Acetaminophen (*Crx) 5-325 Mg Tablet PO Q6H PRN Pain Rated 6 or Greater Amlodipine Besylate 10 mg 08/29/20 09:00 09/05/20 08:28 Amlodipine Besylate 5 Mg Tablet PO 10 mg DAILY ISAK Administration Dextrose 12.5 gm 08/29/20 01:19 Dextrose 50% 25 Gm/50 Ml Syringe IV PUSH PRN PRN Hypoglycemia Protocol Dextrose 12.5 gm 09/04/20 00:09 Dextrose 50% 25 Gm/50 Ml Syringe IV PUSH PRN PRN Hypoglycemia Protocol Glipizide 10 mg 09/04/20 07:30 09/05/20 08:28 Glipizide 5 Mg Tablet PO 10 mg DAILY@0730 ISAK Administration Glucagon 1 mg 08/29/20 01:19 Glucagon For Inj 1 Mg Vial IM PRN PRN Hypoglycemia Protocol Glucagon 1 mg 09/04/20 00:09 Glucagon For Inj 1 Mg Vial IM PRN PRN Hypoglycemia Protocol Glucose 15 gm 08/29/20 01:19 Glucose Oral Gel 15 Gm Of Glucse In 37.5 Gm Tube PO PRN PRN Hypoglycemia Protocol Glucose 15 gm 09/04/20 00:09 Glucose Oral Gel 15 Gm Of Glucse In 37.5 Gm Tube PO PRN PRN Hypoglycemia Protocol Hydrochlorothiazide 12.5 mg 09/05/20 09:00 09/05/20 08:28
--- NOTE | 2020-09-05 15:36 | PM.IMPN ---
Progress Note: A&P Assessment and Plan (1) Type 2 diabetes mellitus with hyperglycemia: Code(s): E11.65 - Type 2 diabetes mellitus with hyperglycemia Status: Acute Assessment and Plan: The rise in his glucose is likely due to the fact that he had not been taking his home glipizide, which he was taking prior to his most recent hospitalization, as well as his healing surgical wound. He was started on Lantus during his hospitalization a couple of weeks ago, and that has not been continued possibly because his diet has been much more strict since he has been in the hospital. A1c 8.1. BGL 190s-280s today Accuchecks ACHS, hypoglycemia protocol, correctional insulin, diabetic diet He has been placed back on glipizide 10 mg daily; will continue Will do Lantus 10 u QHS for now; adjust accordingly We discussed trending his sugars and adjusting his medications accordingly. He will follow up with his PCP after discharge for further management (2) Chronic kidney disease, stage 3a: Code(s): N18.31 - Chronic kidney disease, stage 3a Status: Acute Assessment and Plan: Nephrology following and appreciate recommendations. Appears Cr is at baseline. 1.20 today Monitor kidney function (3) Hypertension: Code(s): I10 - Essential (primary) hypertension Status: Chronic Assessment and Plan: Most recent BP 140s sys Continue home amlodipine and HCTZ for now Continue to hold Losartan per Nephrology rec Monitor closely Additional Plan Thank you for allowing the Hospitalist team to care for this patient during their stay. We will continue to follow with you. Please call with any questions Subjective Date/time seen: 09/05/20 15:36 This is a Hospitalist Consult Progress Note Interval history: Patient is a 55 yo M with history of CKDIII, HTN, peripheral neuropathy, DMII, and s/p right BKA ([facility]) who is currently undergoing rehab at [facility]. Hospitalist service consulted for glucose management. Patient states he has been doing well with rehab again today. Feels strength has improved. Otherwise no complaints for me. He notes he usually has had great glycemic control, with A1c typically running in the 6's prior to his diabetic foot infection with glipizide 10 mg daily and metformin 500 mg Q12hr. Currently, denies f/c/s, dizziness, lightheadedness, cp/palpitations, sob/cough, n/v/d/c, abd pain, changes in BMs, dysuria, hematuria, cloudy urine, calf pain/swelling. Review of Systems Review of Systems: All systems reviewed & are unremarkable except as noted in HPI and below Exam Narrative: Exam Narrative: General: Patient sitting up in wheelchair in no acute distress. HEENT: Normocephalic, EOMI, oral mucosa moist. Cardiovascular: Rate and rhythm are regular. No notable murmur, rub, or gallop. Respiratory: Lungs clear to auscultation all patel. Non-labored breathing. Abdomen: bowel sounds present. Extremities: Peripheral pulses intact. Right BKA. Left lower leg has chronic appearing skin changes including red-peach colored skin under dry flaking skin; no drainage or warmth to suggest acute infection. NTTP left calf and behind right knee Neuro: No focal neurological deficits. Speech is clear. Objective Data Vital Signs Vital Signs: Last Vital Signs Temp 97.9 F 09/05/20 14:00 Pulse 91 09/05/20 14:00 Resp 20 09/05/20 14:00 BP 132/65 09/05/20 14:00 Pulse Ox 100 09/05/20 14:00 Intake/Output Intake/Output: Intake & Output 09/02/20 09/03/20 09/04/20 09/05/20 23:59 23:59 23:59 23:59 Intake Total 870 870 870 530 Balance 870 870 870 530 Meds/Results Medications: Active Medications Generic Name Dose Route Start Last Admin Trade Name Freq PRN Reason Stop Dose Admin Acetaminophen 650 mg 08/28/20 22:20 Acetaminophen 325 Mg Tablet PO Q
[2020-09-05 17:56] LABS: Glucose Point of Care 197 (65-105)
[2020-09-05 20:00] VITALS: PULSE 84; RESP 18; O2SAT 99
[2020-09-05] MEDS: INSULIN GLARGINE (*BKC) 100 UNITS/ML 10 UNITS SUB-Q (21:35)
[2020-09-05 21:40] LABS: Glucose Point of Care 310 (65-105)
[2020-09-05 21:44] VITALS: BP 147/73; PULSE 84; RESP 18; TEMP 36.9; O2SAT 99
[2020-09-06 04:48] VITALS: BP 152/69; PULSE 83; RESP 18; TEMP 37.1; O2SAT 99
[2020-09-06] MEDS: ceFAZolin 2 GM/D5W 50 ML 2 GM/50 ML BAG IVPB (05:26)
[2020-09-06] MEDS: CENTRAL LINE FLUSH 10 ML IV PUSH ×3 (05:27→21:30)
[2020-09-06 05:34] LABS: Hematocrit 23.7 % (42.0-52.0); Hemoglobin 7.8 g/dL (14.0-18.0); Mean Corpuscular HGB Conc 32.9 g/dl (32-36); Mean Corpuscular Hemoglobin 30.7 pg (26-34); Mean Corpuscular Volume 93.3 fl (80-100); Mean Platelet Volume 8.8 fl (7.4-10.4); Platelet Count Result 241 k/mm3 (150-375); Red Blood Count 2.54 M/mm3 (4.6-6.20); Red Cell Distribution Width 12.9 % (11.5-14.5); White Blood Count 4.7 K/mm3 (4.5-10.0)
[2020-09-06 05:43] LABS: Anion Gap 3 mmol/L (8-16); Blood Urea Nitrogen 31 mg/dL (9-20); Carbon Dioxide 34 mmol/L (22-30); Chloride 101 mmol/L (98-107); Estimated CRCL calculation 77 ml/min; Estimated Glomerular Filt Rate > 60; Glucose 205 mg/dL (75-110); Magnesium 1.6 mg/dL (1.6-2.3); Sodium 138 mmol/L (137-145)
[2020-09-06 08:00] VITALS: PULSE 83; RESP 18; O2SAT 99
[2020-09-06] MEDS: hydroCHLOROthiazide 12.5 MG CAPSULE PO (09:38)
[2020-09-06] MEDS: amLODIPine BESYLATE 5 MG TABLET 10 MG PO (09:38)
[2020-09-06] MEDS: glipiZIDE 5 MG TABLET 10 MG PO (09:38)
[2020-09-06] MEDS: metFORMIN HCL 500 MG TABLET PO ×2 (09:38→17:46)
[2020-09-06 12:03] LABS: Glucose Point of Care 277 (65-105)
[2020-09-06] MEDS: INSULIN ASPART (*BKC) 100 UNITS/ML SUB-Q ×2 (12:33→17:47)
--- NOTE | 2020-09-06 12:59 | PC.NURSE ---
Changed stump dressing this a.m. and this nurse is first time seeing wound since it is gapped open. Patient isnt sure how it looked before states he has a difficult time seeing it. patient is concerned bc his first appt with surgeon isnt until September 24. I called surgeon office and talked with medical record retrieval specialist and they stated patient appt should be sooner and is scheduled for this WednesdaySeptember 10 at 100:20 a.m.
--- NOTE | 2020-09-06 13:04 | WPDNEURORHBP ---
Subjective Date/time seen: 09/06/20 13:04 Is status post right euvru-wmg-ryai amputation with underlying diabetes mellitu receiving the same medication particularly for the coverage of hyperglycemia, lab today revealed WBC 4.7 hemoglobin 7.8 and platelet count of 241, BMP are I blood sugar 277. The stump has been open the vascular surgeon has been informed an outpatient office is being scheduled for him. Review of Systems Review of Systems: All systems reviewed & are unremarkable except as noted in HPI and below Functional Status Ambulation Ability Ability to Ambulate 10 Feet: Contact Guard Ability to Ambulate 50 Feet With 2 Turns: Contact Guard Ability to Ambulate 150 Feet: Contact Guard Ambulation Assistive Devices: Walker, Wheeled Transfers Ability Ability to Transfer In/Out of Chair: Standby Assistance Exam Const: General: cooperative, comfortable and no acute distress Nutritional Appearance: average body habitus Orientation/consciousness: patient oriented x3 Limitations: other limitations Other: stump HENMT: General nose exam: Normal external nose present and No nasal discharge present Face and sinus: normal facial exam Eyes: Visual Patel: normal visual patel by confrontation Alignment and Position: alignment normal Periorbital: periorbital findings normal Eyelids: eyelids normal Conjunctivae: conjunctivae normal Sclera: sclerae normal Pupils: Equal, round and reactive pupils present EOM: EOMs intact bilaterally Neck: Neck: full ROM Resp: Effort & Inspection: normal respiratory effort Cardio: Rate: regular rate Rhythm: regular rhythm GI: Auscultation: normal bowel sounds Skin: General skin exam: no rashes or lesions noted Neuro: General: patient oriented x3 Cranial nerves: Yes CN's II-XII intact bilaterally Cognition (Neuro): normal cognition Speech: normal speech Motor exam (neuro): Pronator motor function not present, No tremor noted and Abnormal motor strength present ( generally decreased with his small muscle wasting of the hands) Sensory Exam: Sensory deficit (Neuro) Deep tendon reflexes (DTR's): Right triceps reflex intensity grade: 1+, Left triceps reflex intensity grade: 1+, Rt Biceps (C5, C6): 1+, Left biceps reflex intensity grade: 1+, Right brachioradialis reflex intensity grade: 1+ and Left brachioradialis reflex intensity grade: 1+ Plantar Reflex Responses: downgoing: left Coordination: [id number] test normal Extrem: General: full ROM Left upper extremity: full ROM Right lower extremity: lower leg ( wound dehiscence the vascular surgeon has been informed will see the patie) Left lower extremity: full ROM Objective Data Vital Signs Vital Signs: Vital Signs - 24 hr 09/05/20 14:00 09/05/20 20:00 09/05/20 21:44 Temperature 36.6 C 36.9 C Pulse Rate 91 84 84 Respiratory Rate 20 18 18 Blood Pressure 132/65 147/73 H Pulse Oximetry 100 99 99 09/06/20 04:48 09/06/20 08:00 Temperature 37.1 C Pulse Rate 83 83 Respiratory Rate 18 18 Blood Pressure 152/69 H Pulse Oximetry 99 99 Intake/Output Intake/Output: Intake & Output 09/03/20 09/04/20 09/05/20 09/06/20 23:59 23:59 23:59 23:59 Intake Total 870 870 870 720 Balance 870 870 870 720 Meds/Results Medications: Active Medications Generic Name Dose Route Start Last Admin Trade Name Freq PRN Reason Stop Dose Admin Acetaminophen 650 mg 08/28/20 22:20 Acetaminophen 325 Mg Tablet PO Q6H PRN Fever Hydrocodone Bitart/Acetaminophen 1 tab 08/29/20 08:15 Hydrocodone/Acetaminophen (*Crx) 5-325 Mg Tablet PO Q6H PRN Pain Rated 5 or Less Hydrocodone Bitart/Acetaminophen 2 tab 08/29/20 08:15 Hydrocodone/Acetaminophen (*Crx) 5-325 Mg Tablet PO Q6H PRN Pain Rated 6 or Greater Amlodipine Besylate 10 mg 08/29/20 09:00 09/06/20 09:38 Amlodipine Besylate 5 Mg Tablet PO 10 mg DAILY ISAK Administration Dextrose 12.5 gm 08/29/20 01:19 Dextrose 50% 25 Gm/50 Ml Syringe
[2020-09-06 14:00] VITALS: BP 127/45; PULSE 88; RESP 20; TEMP 37.2; O2SAT 100
[2020-09-06] MEDS: ceFAZolin 2 GM in SODIUM CHLORIDE 0.9% IV 50 ML IVPB ×2 (15:00→21:29)
--- NOTE | 2020-09-06 15:34 | PM.IMPN ---
Progress Note: A&P Assessment and Plan (1) Type 2 diabetes mellitus with hyperglycemia: Code(s): E11.65 - Type 2 diabetes mellitus with hyperglycemia Status: Acute Assessment and Plan: The rise in his glucose is likely due to the fact that he had not been taking his home glipizide, which he was taking prior to his most recent hospitalization, as well as his healing surgical wound. He was on Lantus during his hospitalization a couple of weeks ago, as well. A1c 8.1. BGL 200s today Accuchecks ACHS, hypoglycemia protocol, correctional insulin, diabetic diet He has been placed back on glipizide 10 mg daily; will continue Will increase Lantus to 15 u QHS; adjust accordingly We discussed trending his sugars and possibly adjusting his medications during stay. He will follow up with his PCP after discharge for further management (2) Chronic kidney disease, stage 3a: Code(s): N18.31 - Chronic kidney disease, stage 3a Status: Acute Assessment and Plan: Nephrology following and appreciate recommendations. Appears Cr is at baseline. 1.10 today Monitor kidney function (3) Hypertension: Code(s): I10 - Essential (primary) hypertension Status: Chronic Assessment and Plan: Most recent BP 120s sys Continue home amlodipine and HCTZ for now Continue to hold Losartan per Nephrology rec Monitor closely Additional Plan Thank you for allowing the Hospitalist team to care for this patient during their stay. We will continue to follow with you. Please call with any questions Subjective Date/time seen: 09/06/20 15:34 This is a Hospitalist Consult Progress Note Interval history: Patient is a 55 yo M with history of CKDIII, HTN, peripheral neuropathy, DMII, and s/p right BKA ([facility]) who is currently undergoing rehab at [facility]. Hospitalist service consulted for glucose management. Patient states he has been doing well with rehab again today. Feels strength has improved. Otherwise no complaints for me. Currently, denies f/c/s, dizziness, lightheadedness, cp/palpitations, sob/cough, n/v/d/c, abd pain, changes in BMs, dysuria, hematuria, cloudy urine, calf pain/swelling. Review of Systems Review of Systems: All systems reviewed & are unremarkable except as noted in HPI and below Exam Narrative: Exam Narrative: General: Patient sitting up in wheelchair in no acute distress. Nursing in room for end of visit HEENT: Normocephalic, EOMI, oral mucosa moist. Cardiovascular: Rate and rhythm are regular. No notable murmur, rub, or gallop. Respiratory: Lungs clear to auscultation all patel. Non-labored breathing. Abdomen: soft, nttp, no guarding, bowel sounds present. Extremities: Peripheral pulses intact. Right BKA. Left lower leg has chronic appearing skin changes including red-peach colored skin under dry flaking skin; clear weeping from the area as well. No warmth to suggest acute infection. NTTP left calf and behind right knee Neuro: No focal neurological deficits. Speech is clear. Objective Data Vital Signs Vital Signs: Last Vital Signs Temp 98.9 F 09/06/20 14:00 Pulse 88 09/06/20 14:00 Resp 20 09/06/20 14:00 BP 127/45 L 09/06/20 14:00 Pulse Ox 100 09/06/20 14:00 Intake/Output Intake/Output: Intake & Output 09/03/20 09/04/20 09/05/20 09/06/20 23:59 23:59 23:59 23:59 Intake Total 870 870 870 720 Balance 870 870 870 720 Meds/Results Medications: Active Medications Generic Name Dose Route Start Last Admin Trade Name Freq PRN Reason Stop Dose Admin Acetaminophen 650 mg 08/28/20 22:20 Acetaminophen 325 Mg Tablet PO Q6H PRN Fever Hydrocodone Bitart/Acetaminophen 1 tab 08/29/20 08:15 Hydrocodone/Acetaminophen (*Crx) 5-325 Mg Tablet PO Q6H PRN Pain Rated 5 or Less Hydrocodone Bitart/Acetaminophen 2
[2020-09-06 17:38] LABS: Glucose Point of Care 254 (65-105)
[2020-09-06] MEDS: BETAMETHASONE/CLOTRIMAZOLE CR 15 GM TUBE 1 APPLIC TOPICAL (17:46)
[2020-09-06] MEDS: INSULIN GLARGINE (*BKC) 100 UNITS/ML 15 UNITS SUB-Q (21:23)
[2020-09-06 21:42] VITALS: BP 141/57; PULSE 89; RESP 18; TEMP 36.9; O2SAT 100
[2020-09-06 23:17] LABS: Glucose Point of Care 318 (65-105)
[2020-09-07 05:19] VITALS: BP 142/65; PULSE 82; RESP 18; TEMP 36.9; O2SAT 100
[2020-09-07] MEDS: CENTRAL LINE FLUSH 10 ML IV PUSH ×3 (05:41→21:03)
[2020-09-07] MEDS: CENTRAL LINE FLUSH 20 ML IV PUSH (05:41)
[2020-09-07] MEDS: ceFAZolin 2 GM in SODIUM CHLORIDE 0.9% IV 50 ML IVPB ×3 (05:42→21:02)
[2020-09-07 06:13] LABS: Anion Gap 5 mmol/L (8-16); Blood Urea Nitrogen 29 mg/dL (9-20); Calcium 8.6 mg/dL (8.4-10.2); Carbon Dioxide 31 mmol/L (22-30); Chloride 103 mmol/L (98-107); Estimated CRCL calculation 77 ml/min; Estimated Glomerular Filt Rate > 60; Glucose 219 mg/dL (75-110); Magnesium 1.6 mg/dL (1.6-2.3); Potassium 4.2 mmol/L (3.4-5.0); Sodium 139 mmol/L (137-145)
[2020-09-07 06:33] LABS: Glucose Point of Care 216 (65-105)
[2020-09-07] MEDS: glipiZIDE 5 MG TABLET 10 MG PO (07:19)
[2020-09-07] MEDS: amLODIPine BESYLATE 5 MG TABLET 10 MG PO (08:29)
[2020-09-07] MEDS: hydroCHLOROthiazide 12.5 MG CAPSULE PO (08:29)
[2020-09-07] MEDS: metFORMIN HCL 500 MG TABLET PO ×2 (08:30→17:06)
[2020-09-07] MEDS: INSULIN ASPART (*BKC) 100 UNITS/ML SUB-Q ×2 (08:30→17:06)
[2020-09-07] MEDS: BETAMETHASONE/CLOTRIMAZOLE CR 15 GM TUBE 1 APPLIC TOPICAL ×2 (08:30→20:38)
[2020-09-07 11:51] LABS: Glucose Point of Care 95 (65-105)
--- NOTE | 2020-09-07 12:42 | PM.PNNEP ---
Progress Note: A&P Assessment and Plan (1) Chronic kidney disease, stage 3a: Code(s): N18.31 - Chronic kidney disease, stage 3a Status: Acute Assessment and Plan: baseline creatinine runs 1.4 - 1.7mg/dl - creatinine currently better than baseline - this may be due to holding of EDDA/ARB due to diabetes and hypertension continue supportive therapy (2) Hyponatremia: Code(s): E87.1 - Hypo-osmolality and hyponatremia Status: Acute Assessment and Plan: sodium normalized probably more related to elevated sugars and renal insufficiency evaluation to date negative (3) Hypertension: Code(s): I10 - Essential (primary) hypertension Status: Chronic Assessment and Plan: reasonable control at this time on amlodipine and hydrochlorothiazide ultimate plan would be to resume/restart losartan as an outpatient follow trend of hemodynamics (4) Anemia: Code(s): D64.9 - Anemia, unspecified Status: Acute Assessment and Plan: probably from acute illness and CKD follow trend for now (5) Diabetes: Code(s): E11.9 - Type 2 diabetes mellitus without complications Status: Chronic Assessment and Plan: follow accu-Cheks on sliding-scale insulin Will continue to follow. Subjective Date/time seen: 09/07/20 12:42 Continues to do quite well with therapy since his admission to acute rehab; no apparent distress or other complaints voiced at this time; no events/issues overnight or earlier this morning. Exam Narrative: Exam Narrative: General: WD/WN male in NAD Heart: normal S1 and S2; no rub Lungs: clear to auscultation Abdomen: soft, nontender, nondistended, positive bowel sounds Extremities: no cyanosis or clubbing; no edema; s/p right BKA Skin: warm and dry Objective Data Vital Signs Vital Signs: Vital Signs Temp Pulse Resp BP Pulse Ox 09/07/20 05:19 36.9 C 82 18 142/65 H 100 09/06/20 21:42 36.9 C 89 18 141/57 H 100 09/06/20 14:00 37.2 C 88 20 127/45 L 100 Intake/Output Intake/Output: Intake & Output 09/04/20 09/05/20 09/06/20 09/07/20 23:59 23:59 23:59 23:59 Intake Total 168 138 7520 290 Balance 834 595 3852 290 Meds/Results Medications: Active Medications Generic Name Dose Route Start Last Admin Trade Name Freq PRN Reason Stop Dose Admin Acetaminophen 650 mg 08/28/20 22:20 Acetaminophen 325 Mg Tablet PO Q6H PRN Fever Hydrocodone Bitart/Acetaminophen 1 tab 08/29/20 08:15 Hydrocodone/Acetaminophen (*Crx) 5-325 Mg Tablet PO Q6H PRN Pain Rated 5 or Less Hydrocodone Bitart/Acetaminophen 2 tab 08/29/20 08:15 Hydrocodone/Acetaminophen (*Crx) 5-325 Mg Tablet PO Q6H PRN Pain Rated 6 or Greater Amlodipine Besylate 10 mg 08/29/20 09:00 09/07/20 08:29 Amlodipine Besylate 5 Mg Tablet PO 10 mg DAILY ISAK Administration Clotrimazole 1 applic 09/06/20 17:00 09/07/20 08:30 Betamethasone/Clotrimazole Cr 15 Gm Tube TOPICAL 1 applic Q12HR ISAK Administration Dextrose 12.5 gm 08/29/20 01:19 Dextrose 50% 25 Gm/50 Ml Syringe IV PUSH PRN PRN Hypoglycemia Protocol Dextrose 12.5 gm 09/04/20 00:09 Dextrose 50% 25 Gm/50 Ml Syringe IV PUSH PRN PRN Hypoglycemia Protocol Glipizide 10 mg 09/04/20 07:30 09/07/20 07:19 Glipizide 5 Mg Tablet PO 10 mg DAILY@0730 ISAK Administration Glucagon 1 mg 08/29/20 01:19 Glucagon For Inj 1 Mg Vial IM PRN PRN Hypoglycemia Protocol Glucagon 1 mg 09/04/20 00:09 Glucagon For Inj 1 Mg Vial IM PRN PRN Hypoglycemia Protocol Glucose 15 gm 08/29/20 01:19 Glucose Oral Gel 15 Gm Of Glucse In 37.5 Gm Tube PO PRN PRN Hypoglycemia Protocol Glucose 15 gm 09/04/20 00:09 Glucose Oral Gel 15 Gm Of Glucse In 37.5 Gm Tube PO PRN PRN Hypoglycemia Pro
--- NOTE | 2020-09-07 13:58 | PM.IMPN ---
Progress Note: A&P Assessment and Plan (1) Type 2 diabetes mellitus with hyperglycemia: Code(s): E11.65 - Type 2 diabetes mellitus with hyperglycemia Status: Acute Assessment and Plan: The rise in his glucose could be due to the fact that he had not been taking his home glipizide, which he was taking regularly prior to his most recent hospitalization, although possibly was not sufficient any longer. He was on Lantus during his hospitalization a couple of weeks ago, as well. A1c 8.1. BGL 90-200s today Accuchecks ACHS, hypoglycemia protocol, correctional insulin, diabetic diet He has been placed back on glipizide 10 mg daily; will continue Will continue Lantus to 15 u QHS; adjust accordingly We discussed trending his sugars and possibly adjusting his medications during stay. He will follow up with his PCP after discharge for further management Will do Machine Preservative Filler consult (2) Chronic kidney disease, stage 3a: Code(s): N18.31 - Chronic kidney disease, stage 3a Status: Acute Assessment and Plan: Nephrology following and appreciate recommendations. Appears Cr is at baseline. 1.10 today Monitor kidney function (3) Hypertension: Code(s): I10 - Essential (primary) hypertension Status: Chronic Assessment and Plan: Most recent BP 140s sys Continue home amlodipine and HCTZ for now Continue to hold Losartan per Nephrology rec Monitor closely Additional Plan Thank you for allowing the Hospitalist team to care for this patient during their stay. We will continue to follow with you. Please call with any questions Subjective Date/time seen: 09/07/20 13:58 This is a Hospitalist Consult Progress Note Interval history: Patient is a 55 yo M with history of CKDIII, HTN, peripheral neuropathy, DMII, and s/p right BKA ([facility]) who is currently undergoing rehab at [facility]. Hospitalist service consulted for glucose management. Patient states he has been doing well with rehab again today. Continues to improve daily. In good spirits. Requesting records from Dr. Cardoso's (neurology) office for results of his images 2 months ago; will place order for nursing to obtain records. Patient thinks his lower leg swelling and skin changes have improved with Lotrisone cream. Otherwise no complaints for me. Currently, denies f/c/s, dizziness, lightheadedness, cp/palpitations, sob/cough, n/v/d/c, abd pain, changes in BMs, dysuria, hematuria, cloudy urine, calf pain/swelling. Review of Systems Review of Systems: All systems reviewed & are unremarkable except as noted in HPI and below Exam Narrative: Exam Narrative: General: Patient sitting up in wheelchair in no acute distress. HEENT: Normocephalic, EOMI, oral mucosa moist. Cardiovascular: Rate and rhythm are regular. No notable murmur, rub, or gallop. Respiratory: Lungs clear to auscultation all patel. Non-labored breathing. Abdomen: bowel sounds present. Extremities: Peripheral pulses intact. Right BKA. Left lower leg has chronic appearing skin changes including red-peach colored skin under dry flaking skin; no discharge from the area today. No warmth to suggest acute infection. Improved from yesterday Neuro: No focal neurological deficits. Speech is clear. Objective Data Vital Signs Vital Signs: Vital Signs - 24 hr 09/06/20 14:00 09/06/20 21:42 09/07/20 05:19 Temperature 98.9 F 98.5 F 98.4 F Pulse Rate 88 89 82 Respiratory Rate 20 18 18 Blood Pressure 127/45 L 141/57 H 142/65 H Pulse Oximetry 100 100 100 Intake/Output Intake/Output: Intake & Output 09/04/20 09/05/20 09/06/20 09/07/20 23:59 23:59 23:59 23:59 Intake Total 973 772 2094 530 Balance 069 505 8507 530 Meds/Results Medications: Active Medications Generic Name Dose Route Start Last Admin Trade Name Freq PRN Reason Stop Dose
[2020-09-07 14:00] VITALS: BP 121/57; PULSE 93; RESP 20; TEMP 36.3; O2SAT 100
--- NOTE | 2020-09-07 14:00 | PC.NURSE ---
picc dressing changed at this time without difficulty.
[2020-09-07 20:32] VITALS: BP 145/65; PULSE 90; RESP 16; TEMP 36.7; O2SAT 100
[2020-09-07] MEDS: INSULIN GLARGINE (*BKC) 100 UNITS/ML 15 UNITS SUB-Q (20:46)
[2020-09-07 21:12] LABS: Glucose Point of Care 241 (65-105)
[2020-09-07 21:12] LABS: Glucose Point of Care 295 (65-105)
[2020-09-08 06:18] VITALS: BP 140/57; PULSE 80; RESP 16; TEMP 36.6; O2SAT 100
[2020-09-08] MEDS: CENTRAL LINE FLUSH 10 ML IV PUSH ×3 (06:21→21:15)
[2020-09-08] MEDS: CENTRAL LINE FLUSH 20 ML IV PUSH (06:22)
[2020-09-08] MEDS: ceFAZolin 2 GM in SODIUM CHLORIDE 0.9% IV 50 ML IVPB ×3 (06:32→21:14)
[2020-09-08 06:44] LABS: Glucose Point of Care 238 (65-105)
[2020-09-08 06:49] LABS: Anion Gap 4 mmol/L (8-16); Blood Urea Nitrogen 27 mg/dL (9-20); Calcium 8.5 mg/dL (8.4-10.2); Carbon Dioxide 31 mmol/L (22-30); Chloride 102 mmol/L (98-107); Estimated CRCL calculation 85 ml/min; Estimated Glomerular Filt Rate > 60; Glucose 258 mg/dL (75-110); Magnesium 1.5 mg/dL (1.6-2.3); Potassium 4.1 mmol/L (3.4-5.0); Sodium 137 mmol/L (137-145)
[2020-09-08] MEDS: glipiZIDE 5 MG TABLET 10 MG PO (07:10)
[2020-09-08 08:00] VITALS: PULSE 80; RESP 16; O2SAT 100
[2020-09-08] MEDS: metFORMIN HCL 500 MG TABLET PO ×2 (09:33→17:01)
[2020-09-08] MEDS: hydroCHLOROthiazide 12.5 MG CAPSULE PO (09:33)
[2020-09-08] MEDS: amLODIPine BESYLATE 5 MG TABLET 10 MG PO (09:33)
[2020-09-08] MEDS: INSULIN ASPART (*BKC) 100 UNITS/ML SUB-Q ×2 (09:37→17:01)
--- NOTE | 2020-09-08 11:39 | PM.IMPN ---
Progress Note: A&P Assessment and Plan (1) Type 2 diabetes mellitus with hyperglycemia: Code(s): E11.65 - Type 2 diabetes mellitus with hyperglycemia Status: Acute Assessment and Plan: The rise in his glucose could be due to the fact that he had not been taking his home glipizide, which he was taking regularly prior to his most recent hospitalization, although possibly was not sufficient any longer. He was on Lantus during his hospitalization a couple of weeks ago, as well. A1c 8.1. BGL 200s today Accuchecks ACHS, hypoglycemia protocol, correctional insulin, diabetic diet He has been placed back on glipizide 10 mg daily; will continue Will continue Lantus to 15 u QHS; adjust accordingly We discussed trending his sugars and possibly adjusting his medications during stay. He will follow up with his PCP after discharge for further management Will do Concreter consult (2) Chronic kidney disease, stage 3a: Code(s): N18.31 - Chronic kidney disease, stage 3a Status: Acute Assessment and Plan: Nephrology following and appreciate recommendations. Cr 1.00 today which is below his baseline of 1.4-1.7 Monitor kidney function (3) Hypertension: Code(s): I10 - Essential (primary) hypertension Status: Chronic Assessment and Plan: Most recent BP 140s sys Continue home amlodipine and HCTZ for now Continue to hold Losartan per Nephrology rec Monitor closely Additional Plan Thank you for allowing the Hospitalist team to care for this patient during their stay. We will continue to follow with you. Please call with any questions Subjective Date/time seen: 09/08/20 11:39 This is a Hospitalist Consult Progress Note Interval history: Patient is a 55 yo M with history of CKDIII, HTN, peripheral neuropathy, DMII, and s/p right BKA ([facility]) who is currently undergoing rehab at [facility]. Hospitalist service consulted for glucose management. Patient states he has been doing well with rehab again today. Continues to improve daily. In good spirits. Patient thinks his lower leg swelling and skin changes have improved with Lotrisone cream. Otherwise no complaints for me. Currently, denies f/c/s, dizziness, lightheadedness, cp/palpitations, sob/cough, n/v/d/c, abd pain, changes in BMs, dysuria, hematuria, cloudy urine, calf pain/swelling. Review of Systems Review of Systems: All systems reviewed & are unremarkable except as noted in HPI and below Exam Narrative: Exam Narrative: General: Patient sitting up in wheelchair in no acute distress. HEENT: Normocephalic, EOMI, oral mucosa moist. Cardiovascular: Rate and rhythm are regular. No notable murmur, rub, or gallop. Respiratory: Lungs clear to auscultation all patel. Non-labored breathing. Abdomen: bowel sounds present. soft, nttp Extremities: Peripheral pulses intact. Right BKA. Left lower leg has chronic appearing skin changes including red-peach colored skin under dry flaking skin; no discharge from the area today. No warmth to suggest acute infection. Improved from yesterday. Some small breaks in skin just superior to this area which appears to be excoriation Neuro: No focal neurological deficits. Speech is clear. Objective Data Vital Signs Vital Signs: Vital Signs - 24 hr 09/07/20 14:00 09/07/20 20:32 09/08/20 06:18 Temperature 97.4 F L 98.0 F 97.8 F Pulse Rate 93 90 80 Respiratory Rate 20 16 16 Blood Pressure 121/57 L 145/65 H 140/57 L Pulse Oximetry 100 100 100 Intake/Output Intake/Output: Intake & Output 09/05/20 09/06/20 09/07/20 09/08/20 23:59 23:59 23:59 23:59 Intake Total 870 1060 870 530 Balance 870 1060 870 530 Meds/Results Medications: Active Medications Generic Name Dose Route Start Last Admin Trade Name Freq PRN Reason Stop Dose Admin Acetaminophen 650 mg 02
[2020-09-08 12:04] LABS: Glucose Point of Care 62 (65-105)
[2020-09-08 14:00] VITALS: BP 134/61; PULSE 87; RESP 20; TEMP 36.3; O2SAT 100
[2020-09-08] MEDS: BETAMETHASONE/CLOTRIMAZOLE CR 15 GM TUBE 1 APPLIC TOPICAL ×2 (14:30→21:15)
--- NOTE | 2020-09-08 16:38 | PC.NURSE ---
dressing changed to right stump this a.m., patient had moderate amount of serosanguinous drainage to middle of incision where incision is gapped open. no odor noted. 4 x 4s and kerlix roll applied. jeremy wrap applied. patient tolerated well.
[2020-09-08 16:53] LABS: Glucose Point of Care 223 (65-105)
[2020-09-08] MEDS: INSULIN GLARGINE (*BKC) 100 UNITS/ML 15 UNITS SUB-Q (21:15)
[2020-09-08 21:44] LABS: Glucose Point of Care 332 (65-105)
[2020-09-08 22:00] VITALS: BP 144/66; PULSE 94; RESP 20; TEMP 36.7; O2SAT 100
[2020-09-09] MEDS: ceFAZolin 2 GM in SODIUM CHLORIDE 0.9% IV 50 ML IVPB ×3 (05:32→21:36)
[2020-09-09] MEDS: CENTRAL LINE FLUSH 10 ML IV PUSH ×3 (05:32→21:36)
[2020-09-09 05:46] VITALS: BP 124/70; PULSE 86; RESP 20; TEMP 36.6; O2SAT 100
[2020-09-09 05:54] LABS: Hematocrit 24.8 % (42.0-52.0); Hemoglobin 8.1 g/dL (14.0-18.0); Mean Corpuscular HGB Conc 32.7 g/dl (32-36); Mean Corpuscular Hemoglobin 30.5 pg (26-34); Mean Corpuscular Volume 93.2 fl (80-100); Mean Platelet Volume 8.8 fl (7.4-10.4); Platelet Count Result 208 k/mm3 (150-375); Red Blood Count 2.66 M/mm3 (4.6-6.20); Red Cell Distribution Width 13.2 % (11.5-14.5); White Blood Count 3.7 K/mm3 (4.5-10.0)
[2020-09-09 06:18] LABS: Alanine Aminotransferase 10 U/L (4-50); Albumin Level 3.1 g/dL (3.5-5.1); Alkaline Phosphatase 74 U/L (38-126); Anion Gap -1 mmol/L (8-16); Aspartate Amino Transferase 24 U/L (17-59); Bilirubin,Total 0.4 mg/dL (0.2-1.3); Blood Urea Nitrogen 27 mg/dL (9-20); Calcium 8.4 mg/dL (8.4-10.2); Carbon Dioxide 33 mmol/L (22-30); Chloride 105 mmol/L (98-107); Estimated CRCL calculation 77 ml/min; Estimated Glomerular Filt Rate > 60; Glucose 178 mg/dL (75-110); Magnesium 1.5 mg/dL (1.6-2.3); Potassium 4.2 mmol/L (3.4-5.0); Sodium 137 mmol/L (137-145)
[2020-09-09 06:19] LABS: Glucose Point of Care 174 (65-105)
[2020-09-09] MEDS: glipiZIDE 5 MG TABLET 10 MG PO (07:23)
[2020-09-09] MEDS: metFORMIN HCL 500 MG TABLET PO (07:23)
[2020-09-09 08:00] VITALS: PULSE 86; RESP 20; O2SAT 100
[2020-09-09] MEDS: hydroCHLOROthiazide 12.5 MG CAPSULE PO (09:27)
[2020-09-09] MEDS: amLODIPine BESYLATE 5 MG TABLET 10 MG PO (09:27)
[2020-09-09] MEDS: BETAMETHASONE/CLOTRIMAZOLE CR 15 GM TUBE 1 APPLIC TOPICAL ×2 (09:28→21:16)
[2020-09-09 12:00] VITALS: BMI 28.3
[2020-09-09 12:02] LABS: Glucose Point of Care 148 (65-105)
[2020-09-09 14:00] VITALS: BP 139/78; PULSE 91; RESP 20; TEMP 36.7; O2SAT 100
--- NOTE | 2020-09-09 14:06 | WPDNEURORHBP ---
Subjective Date/time seen: 09/09/20 14:07 55 years old right-handed male has been admitted to the rehab floor with the ongoing diagnosis of is status post left [id number]-evmj amputation along with ongoing diagnosis of type 2 diabetes mellitus, patient's blood sugar was fluctuating initially he was taken off the glipizide to see if you could regulate him on the insulin but then he was restarted back on glipizide 10 mg daily has also been taking insulin, condition he has ongoing history of chronic kidney disease stage 3 a for which nephrologists has been consulted his creatinine is baseline 1.10 and stable his blood pressure is also stable his being continued on hydrochlorothiazide and amlodipine though losartan is being withheld as per the metal spraying machine operator recommendation. his sodium is improving and is normalized which was related to hyper glycemia, anemia is related to chronic disease not need to be adjusted. he has remained afebrile with temp of 36.7? pulse 91 respiration 20 blood pressure 139/78 and he is on room air. his new lab today WBC 3.7 hemoglobin 8.1 platelet count of 208 and rest of the labs not significant Review of Systems Review of Systems: All systems reviewed & are unremarkable except as noted in HPI and below Functional Status Ambulation Ability Ability to Ambulate 10 Feet: Independent Ability to Ambulate 50 Feet With 2 Turns: Independent Ability to Ambulate 150 Feet: Independent Ambulation Assistive Devices: Walker, Wheeled Transfers Ability Ability to Transfer In/Out of Chair: Contact Guard Exam Const: General: cooperative, comfortable and no acute distress Nutritional Appearance: average body habitus, well nourished and thin Orientation/consciousness: patient oriented x3 Limitations: physical limitations HENMT: Head: normocephalic Ears: hearing grossly normal bilaterally General nose exam: Normal external nose present and No nasal discharge present Face and sinus: normal facial exam Mouth: Yes Normal oral and palatal mucosa present and Yes tongue normal Eyes: General: appearance normal, both eyes and all related structures Alignment and Position: alignment normal Periorbital: periorbital findings normal Eyelids: eyelids normal Sclera: sclerae normal Cornea: corneas normal Pupils: Equal, round and reactive pupils present EOM: EOMs intact bilaterally Neck: Neck: full ROM Resp: Effort & Inspection: normal respiratory effort Auscultation: clear to auscultation bilaterally Cardio: Jugular venous distension: no JVD Rate: regular rate Rhythm: regular rhythm GI: Auscultation: normal bowel sounds Skin: General skin exam: no rashes or lesions noted Neuro: General: patient oriented x3 Cranial nerves: Yes CN's II-XII intact bilaterally Gait exam (Neuro): Assisted gait required Motor exam (neuro): 5/5 motor strength present throughout and No tremor noted Sensory Exam: Sensory deficit (Neuro) Deep tendon reflexes (DTR's): Right triceps reflex intensity grade: 1+, Left triceps reflex intensity grade: 1+, Rt Biceps (C5, C6): 1+, Left biceps reflex intensity grade: 1+, Right brachioradialis reflex intensity grade: 1+, Left brachioradialis reflex intensity grade: 1+, Right patellar reflex intensity grade: 1+ and Left patellar reflex intensity grade: 1+ Plantar Reflex Responses: downgoing: right Coordination: [id number] test normal Psych: Appearance: grossly normal Mental Status: mental status grossly normal Speech and movement: Normal speech and movement present Affect: normal affect Attitude: cooperative Thought process: Normal thought process present Thought content: Yes Normal thought content present Insight: Good insight present (Psych) Judgement: Good judgement present (Psych) Objective Data Vital Signs Vital Signs: Vital Signs - 24 hr 09/08/20 22:00 09/09/20 05:46 09/09/20 08:00 Temperature 36.7 C 36.6 C Pulse Rate 94 86 86 Respiratory Rate 20 20 20 Blood Pressure 144/66 H 124/70 Pulse Oximetry 100
--- NOTE | 2020-09-09 14:23 | PM.IMPN ---
Progress Note: A&P Assessment and Plan (1) Type 2 diabetes mellitus with hyperglycemia: Code(s): E11.65 - Type 2 diabetes mellitus with hyperglycemia Status: Acute Assessment and Plan: A1c 8.1. He tells me today his home metformin is in fact 1000 mg BID, not 500 mg BID. BGL are labile at times, although today they seem well controlled in 100s. Discussed with DM educator; possible regimens at discharge to consider include his home metformin, then initiating glipizide 10 mg qam and 5 mg qam or vice versa, or continuing lantus plus one dose short acting with biggest meal Accuchecks ACHS, hypoglycemia protocol, correctional insulin, diabetic diet He has been placed back on glipizide 10 mg daily; will continue Will increase metformin to original home dose of 1000 mg BIDWM tonight Will continue Lantus to 15 u QHS; adjust accordingly We discussed trending his sugars and possibly adjusting his medications accordingly. He will follow up with his PCP after discharge for further management Appreciate DM educator recommendations (2) Chronic kidney disease, stage 3a: Code(s): N18.31 - Chronic kidney disease, stage 3a Status: Acute Assessment and Plan: Nephrology following and appreciate recommendations. Cr 1.10 today which is below his baseline of 1.4-1.7 Monitor kidney function (3) Hypertension: Code(s): I10 - Essential (primary) hypertension Status: Chronic Assessment and Plan: Most recent BP 130s sys Continue home amlodipine and HCTZ for now Continue to hold Losartan per Nephrology rec, but consider resuming prior to discharge Monitor closely Additional Plan Thank you for allowing the Hospitalist team to care for this patient during their stay. We will continue to follow with you. Please call with any questions Subjective Date/time seen: 09/09/20 14:23 This is a Hospitalist Consult Progress Note Interval history: Patient is a 55 yo M with history of CKDIII, HTN, peripheral neuropathy, DMII, and s/p right BKA ([facility]) who is currently undergoing rehab at [facility]. Hospitalist service consulted for glucose management. Patient states he has been doing well with rehab again today. Continues to improve daily. In good spirits. Patient thinks his lower leg swelling and skin changes have improved with Lotrisone cream. Otherwise no complaints for me. He is pushing for extending his [facility] stay to build up strength. the DM educator met with him today. Ideally, he does not want to be on any insulin at time of discharge but is willing to do so if needed. He also states he was on metformin 1000 mg BID prior to transferring his care to his local PCP. Currently, denies f/c/s, dizziness, lightheadedness, cp/palpitations, sob/cough, n/v/d/c, abd pain, changes in BMs, dysuria, hematuria, cloudy urine, calf pain/swelling. Review of Systems Review of Systems: All systems reviewed & are unremarkable except as noted in HPI and below Exam Narrative: Exam Narrative: General: Patient sitting up in wheelchair in no acute distress. HEENT: Normocephalic, EOMI, oral mucosa moist. Cardiovascular: Rate and rhythm are regular. No notable murmur, rub, or gallop. Respiratory: Lungs clear to auscultation all patel. Non-labored breathing. Abdomen: bowel sounds present. soft, nttp Extremities: Peripheral pulses intact. Right BKA. Left lower leg has chronic appearing skin changes including red-peach colored skin under dry flaking skin; no discharge from the area today. No warmth to suggest acute infection. Improved again from yesterday. Some small breaks in skin just superior to this area which appears to be excoriation; does not appear acutely infected Neuro: No focal neurological deficits. Speech is clear. Objective Data Vital Signs Vital Signs: Last Vital Signs Temp 98.1 F
[2020-09-09 16:33] LABS: Glucose Point of Care 195 (65-105)
[2020-09-09] MEDS: metFORMIN HCL 500 MG TABLET 1000 MG PO (17:44)
[2020-09-09] MEDS: INSULIN GLARGINE (*BKC) 100 UNITS/ML 15 UNITS SUB-Q (21:27)
[2020-09-09 21:54] LABS: Glucose Point of Care 317 (65-105)
[2020-09-09 22:00] VITALS: BP 148/79; PULSE 98; RESP 16; TEMP 36.6; O2SAT 100
[2020-09-10] MEDS: CENTRAL LINE FLUSH 10 ML IV PUSH ×3 (05:27→21:35)
[2020-09-10] MEDS: CENTRAL LINE FLUSH 20 ML IV PUSH (05:27)
[2020-09-10] MEDS: ceFAZolin 2 GM in SODIUM CHLORIDE 0.9% IV 50 ML IVPB ×3 (05:30→21:22)
[2020-09-10 06:00] VITALS: BP 142/67; PULSE 75; RESP 16; TEMP 36.6; O2SAT 99
[2020-09-10 06:00] LABS: Anion Gap 4 mmol/L (8-16); Blood Urea Nitrogen 26 mg/dL (9-20); Calcium 8.4 mg/dL (8.4-10.2); Carbon Dioxide 31 mmol/L (22-30); Chloride 103 mmol/L (98-107); Estimated CRCL calculation 85 ml/min; Estimated Glomerular Filt Rate > 60; Glucose 163 mg/dL (75-110); Magnesium 1.5 mg/dL (1.6-2.3); Potassium 4.1 mmol/L (3.4-5.0); Sodium 138 mmol/L (137-145)
[2020-09-10 06:54] LABS: Glucose Point of Care 163 (65-105)
[2020-09-10] MEDS: glipiZIDE 5 MG TABLET 10 MG PO (07:15)
[2020-09-10] MEDS: hydroCHLOROthiazide 12.5 MG CAPSULE PO (07:36)
[2020-09-10] MEDS: BETAMETHASONE/CLOTRIMAZOLE CR 15 GM TUBE 1 APPLIC TOPICAL ×2 (07:36→21:23)
[2020-09-10] MEDS: amLODIPine BESYLATE 5 MG TABLET 10 MG PO (07:36)
[2020-09-10] MEDS: metFORMIN HCL 500 MG TABLET 1000 MG PO ×2 (07:37→17:03)
[2020-09-10] MEDS: MAGNESIUM SULF 2 GM/WATER 50ML 2 GM/50 ML BAG IVPB (11:08)
[2020-09-10 11:40] LABS: Glucose Point of Care 73 (65-105)
--- NOTE | 2020-09-10 12:35 | WPDNEURORHBP ---
Subjective Date/time seen: 09/10/20 12:35 55 years old right-handed male, status post right below-knee amputation along with the diabetes mellitus, medication at this time include glipizide 10 mg daily, insulin NovoLog 3 to 6 units subcu t.i.d. with meals and glargine 15units subcu q.h.s. in addition to metformin 1000 mg twice a day scheduled. routine lab fairly normal with BUN of 26 glucose 163 creatinine clearance 85 and creatinine of 1.0, remains afebrile with temp of 36.6? pulse 75 respiration 16 pulse ox 99 blood pressure 142/67. Functional Status Ambulation Ability Ability to Ambulate 10 Feet: Independent Ability to Ambulate 50 Feet With 2 Turns: Independent Ability to Ambulate 150 Feet: Independent Ambulation Assistive Devices: Walker, Wheeled Transfers Ability Ability to Transfer In/Out of Chair: Independent Exam Const: General: cooperative, healthy appearing, comfortable, no acute distress, well developed, alert, awake and Physically active Nutritional Appearance: average body habitus and thin Limitations: physical limitations ( right [id number] amputee for which he will follow-up with the surgeon ) HENMT: Head: No palpable skull fracture present and normocephalic Ears: hearing grossly normal bilaterally and external ears normal General nose exam: Normal external nose present and No nasal discharge present Face and sinus: normal facial exam Mouth: Yes Normal oral and palatal mucosa present and Yes tongue normal Eyes: General: appearance normal, both eyes and all related structures Alignment and Position: alignment normal Periorbital: periorbital findings normal Conjunctivae: conjunctivae normal Sclera: sclerae normal Cornea: corneas normal Pupils: Equal, round and reactive pupils present EOM: EOMs intact bilaterally Neck: Neck: full ROM and no lymphadenopathy Resp: Effort & Inspection: normal respiratory effort Cardio: Rate: regular rate Rhythm: regular rhythm Skin: General skin exam: no rashes or lesions noted Neuro: General: patient oriented x3 Cranial nerves: Yes CN's II-XII intact bilaterally Speech: normal speech Gait exam (Neuro): Assisted gait required Motor exam (neuro): Abnormal motor strength present ( lower extremities particularly concerned about knee extensors) Sensory Exam: Sensory deficit (Neuro) ( distally because of the peripheral neuropathy secondary to diabetes mellit) Deep tendon reflexes (DTR's): Right triceps reflex intensity grade: 1+, Left triceps reflex intensity grade: 1+, Rt Biceps (C5, C6): 1+, Left biceps reflex intensity grade: 1+, Right brachioradialis reflex intensity grade: 1+, Left brachioradialis reflex intensity grade: 1+, Right patellar reflex intensity grade: 1+ and Left patellar reflex intensity grade: 1+ Plantar Reflex Responses: downgoing: left Coordination: [id number] test normal Extrem: General: normal to inspection and full ROM Right upper extremity: full ROM Left upper extremity: full ROM Right lower extremity: full ROM ( left below-knee at the knee amputee) Left lower extremity: full ROM Psych: Mental Status: mental status grossly normal Affect: normal affect Attitude: cooperative Thought process: Normal thought process present Insight: Good insight present (Psych) Judgement: Good judgement present (Psych) Other: wants to get better and as strong as possible Objective Data Vital Signs Vital Signs: Vital Signs - 24 hr 09/09/20 14:00 09/09/20 22:00 09/10/20 06:00 Temperature 36.7 C 36.6 C 36.6 C Pulse Rate 91 98 75 Respiratory Rate 20 16 16 Blood Pressure 139/78 148/79 H 142/67 H Pulse Oximetry 100 100 99 Intake/Output Intake/Output: Intake & Output 09/07/20 09/08/20 09/09/20 09/10/20 23:59 23:59 23:59 23:59 Intake Total 870 1110 870 410 Balance 870 1110 870 410 Meds/Results Medications: Active Medications Generic Name Dose Route Start Last Admin Trade Name Freq PRN Reason Stop Dose Admin Acetaminophen 650 mg 08/28/20 22:20
[2020-09-10 14:13] VITALS: BP 109/55; PULSE 88; RESP 20; TEMP 36.6; O2SAT 99
--- NOTE | 2020-09-10 16:49 | PM.IMPN ---
Progress Note: A&P Assessment and Plan (1) Type 2 diabetes mellitus with hyperglycemia: Code(s): E11.65 - Type 2 diabetes mellitus with hyperglycemia Status: Acute Assessment and Plan: A1c 8.1. He tells me today his home metformin is in fact 1000 mg BID, not 500 mg BID. BGL are labile at times, although today they seem well controlled in 100s. Discussed with DM educator; possible regimens at discharge to consider include his home metformin, then initiating glipizide 10 mg qam and 5 mg qam or vice versa, or continuing lantus plus one dose short acting with biggest meal Accuchecks ACHS, hypoglycemia protocol, correctional insulin, diabetic diet He has been placed back on glipizide 10 mg daily; will continue Will increase metformin to original home dose of 1000 mg BIDWM tonight Will continue Lantus to 15 u QHS; adjust accordingly We discussed trending his sugars and possibly adjusting his medications accordingly. He will follow up with his PCP after discharge for further management Appreciate DM educator recommendations 09/10/20 16:49 Patient with history of diabetes status post left BKA here in [facility] for rehab, patient states he had been eating pasta resulting in hyperglycemia, I spoke with the nursing staff will switch over to diabetic diet, patient is already seen by bi application developer regimen is planned will monitor, patient has no complaint polyuria polydipsia or polyphasia, reassess the patient again tomorrow if remains stable will sign off. (2) Chronic kidney disease, stage 3a: Code(s): N18.31 - Chronic kidney disease, stage 3a Status: Acute Assessment and Plan: Nephrology following and appreciate recommendations. Cr 1.10 today which is below his baseline of 1.4-1.7 Monitor kidney function (3) Hypertension: Code(s): I10 - Essential (primary) hypertension Status: Chronic Assessment and Plan: Most recent BP 130s sys Continue home amlodipine and HCTZ for now Continue to hold Losartan per Nephrology rec, but consider resuming prior to discharge Monitor closely Subjective Date/time seen: 09/10/20 16:49 Patient with history of diabetes status post left BKA here in [facility] for rehab, patient states he had been eating pasta resulting in hyperglycemia, I spoke with the nursing staff will switch over to diabetic diet, patient is already seen by bi application developer regimen is planned will monitor, patient has no complaint polyuria polydipsia or polyphasia, reassess the patient again tomorrow if remains stable will sign off. Review of Systems Review of Systems: All systems reviewed & are unremarkable except as noted in HPI and below Exam Narrative: Exam Narrative: Sitting in the wheelchair Patient is comfortable, NAD HEENT: eyes are clear and none icteric LUNGS:CTA HEART: RR S1S2 ABD: BS+, Soft and nontender Lower extremities: no edema MS: Left lower extremity BKA and splint SKIN: nonjaundiced Neuro: grossly intact. Objective Data Vital Signs Vital Signs: Vital Signs - 24 hr 09/09/20 22:00 09/10/20 06:00 09/10/20 14:13 Temperature 97.9 F 97.9 F 97.9 F Pulse Rate 98 75 88 Respiratory Rate 16 16 20 Blood Pressure 148/79 H 142/67 H 109/55 L Pulse Oximetry 100 99 99 Intake/Output Intake/Output: Intake & Output 09/07/20 09/08/20 09/09/20 09/10/20 23:59 23:59 23:59 23:59 Intake Total 870 1110 870 940 Balance 870 1110 870 940 Meds/Results Medications: Active Medications Generic Name Dose Route Start Last Admin Trade Name Freq PRN Reason Stop Dose Admin Acetaminophen 650 mg 08/28/20 22:20 Acetaminophen 325 Mg Tablet PO Q6H PRN Fever Hydrocodone Bitart/Acetaminophen 1 tab 08/29/20 08:15 Hydrocodone/Acetaminophen (*Crx) 5-325 Mg Tablet PO Q6H PRN Pain Rated 5 or Less Hydrocodone Bitart/Acetaminophen 2 tab
[2020-09-10 16:58] LABS: Glucose Point of Care 293 (65-105)
[2020-09-10] MEDS: INSULIN ASPART (*BKC) 100 UNITS/ML SUB-Q (17:03)
[2020-09-10 21:00] VITALS: BP 161/83; PULSE 97; RESP 20; TEMP 36.4; O2SAT 100
[2020-09-10 21:51] LABS: Glucose Point of Care 156 (65-105)
[2020-09-11 05:33] VITALS: BP 136/62; PULSE 84; RESP 18; TEMP 36.6; O2SAT 100
[2020-09-11] MEDS: ceFAZolin 2 GM in SODIUM CHLORIDE 0.9% IV 50 ML IVPB ×3 (06:30→21:50)
[2020-09-11 06:49] LABS: Anion Gap 4 mmol/L (8-16); Blood Urea Nitrogen 31 mg/dL (9-20); Calcium 8.7 mg/dL (8.4-10.2); Carbon Dioxide 30 mmol/L (22-30); Chloride 103 mmol/L (98-107); Estimated CRCL calculation 77 ml/min; Estimated Glomerular Filt Rate > 60; Glucose 145 mg/dL (75-110); Magnesium 1.7 mg/dL (1.6-2.3); Potassium 4.4 mmol/L (3.4-5.0); Sodium 137 mmol/L (137-145)
[2020-09-11] MEDS: CENTRAL LINE FLUSH 10 ML IV PUSH ×2 (06:56→14:34)
[2020-09-11] MEDS: hydroCHLOROthiazide 12.5 MG CAPSULE PO (07:57)
[2020-09-11] MEDS: metFORMIN HCL 500 MG TABLET 1000 MG PO ×2 (07:57→17:47)
[2020-09-11] MEDS: amLODIPine BESYLATE 5 MG TABLET 10 MG PO (07:57)
[2020-09-11] MEDS: MAGNESIUM OXIDE 400 MG TABLET PO (07:57)
[2020-09-11] MEDS: glipiZIDE 5 MG TABLET 10 MG PO (07:57)
[2020-09-11 11:45] LABS: Glucose Point of Care 114 (65-105)
[2020-09-11] MEDS: BETAMETHASONE/CLOTRIMAZOLE CR 15 GM TUBE 1 APPLIC TOPICAL ×2 (12:10→20:03)
--- NOTE | 2020-09-11 12:20 | PCNFU ---
Nutrition Follow-Up Complete: Increase protein needs related to wound as evidenced by right below the knee amputation Goal: Meet nutritional needs. Patient is meeting current goal. Pt current nutrition is Diabetic Consistent Carbohydrate Diet. Last recorded weight is 100 kg. No significant weight changes reported. Bowel Motility: + BM 09/09 Labs Reviewed: Glu 114 Meds Noted:Norvasc, Novolog, [place], Glucagon Additional Notes: Spoke with patient. Patient reported having a great appetite eating 100% of meals and ordering additional snacks occasionally. He is making great progress and is being discharged tomorrow 09/12. Monitor labs, medications, weight, and oral intake every 7 days.
--- NOTE | 2020-09-11 12:46 | PCNSR ---
On 09/11/20, the student, Chelle Quintero, provided care and completed [facility] documentation on this patient. I have reviewed the student's documentation and agree with the findings.
[2020-09-11 14:00] VITALS: BP 127/68; PULSE 88; RESP 20; TEMP 36.4; O2SAT 100
--- NOTE | 2020-09-11 16:42 | PM.IMPN ---
Progress Note: A&P Assessment and Plan (1) Type 2 diabetes mellitus with hyperglycemia: Code(s): E11.65 - Type 2 diabetes mellitus with hyperglycemia Status: Acute Assessment and Plan: A1c 8.1. He tells me today his home metformin is in fact 1000 mg BID, not 500 mg BID. BGL are labile at times, although today they seem well controlled in 100s. Discussed with DM educator; possible regimens at discharge to consider include his home metformin, then initiating glipizide 10 mg qam and 5 mg qam or vice versa, or continuing lantus plus one dose short acting with biggest meal Accuchecks ACHS, hypoglycemia protocol, correctional insulin, diabetic diet He has been placed back on glipizide 10 mg daily; will continue Will increase metformin to original home dose of 1000 mg BIDWM tonight Will continue Lantus to 15 u QHS; adjust accordingly We discussed trending his sugars and possibly adjusting his medications accordingly. He will follow up with his PCP after discharge for further management Appreciate DM educator recommendations 09/11/20 16:42 Patient with history of diabetes status post left BKA here in [facility] for rehab, patient states he had been eating pasta resulting in hyperglycemia, I spoke with the nursing staff will switch over to diabetic diet, patient is already seen by doubling machine operator regimen is planned will monitor, patient has no complaint polyuria polydipsia or polyphasia, reassess the patient again tomorrow if remains stable will sign off. 09/11 patient diet was switched to diabetic diet, his current regimen continued, his blood sugars are now close to goal, he has no complaints, he is clinically stable will signed off (2) Chronic kidney disease, stage 3a: Code(s): N18.31 - Chronic kidney disease, stage 3a Status: Acute Assessment and Plan: Nephrology following and appreciate recommendations. Cr 1.10 today which is below his baseline of 1.4-1.7 Monitor kidney function (3) Hypertension: Code(s): I10 - Essential (primary) hypertension Status: Chronic Assessment and Plan: Most recent BP 130s sys Continue home amlodipine and HCTZ for now Continue to hold Losartan per Nephrology rec, but consider resuming prior to discharge Monitor closely Additional Plan Thank you for allowing the Hospitalist team to care for this patient during their stay. We will continue to follow with you. Please call with any questions Subjective Date/time seen: 09/11/20 16:42 Patient with history of diabetes status post left BKA here in [facility] for rehab, patient states he had been eating pasta resulting in hyperglycemia, I spoke with the nursing staff will switch over to diabetic diet, patient is already seen by doubling machine operator regimen is planned will monitor, patient has no complaint polyuria polydipsia or polyphasia, reassess the patient again tomorrow if remains stable will sign off. 09/11 patient diet was switched to diabetic diet, his current regimen continued, his blood sugars are now close to goal, he has no complaints, he is clinically stable will signed off Review of Systems Review of Systems: All systems reviewed & are unremarkable except as noted in HPI and below Exam Narrative: Exam Narrative: Sitting in the wheelchair Patient is comfortable, NAD HEENT: eyes are clear and none icteric LUNGS:CTA HEART: RR S1S2 ABD: BS+, Soft and nontender Lower extremities: no edema MS: Left lower extremity BKA and splint SKIN: nonjaundiced Neuro: grossly intact. Objective Data Vital Signs Vital Signs: Vital Signs - 24 hr 09/10/20 21:00 09/11/20 05:33 09/11/20 14:00 Temperature 97.6 F 98 F 97.6 F Pulse Rate 97 84 88 Respiratory Rate 20 18 20 Blood Pressure 161/83 H 136/62 127/68 Pulse Oximetry 100 100 100 Intake/Output Intake/Output: Intake & Output 09/08/20 09/09/20 09/10/20
[2020-09-11 17:01] LABS: Glucose Point of Care 202 (65-105)
[2020-09-11] MEDS: INSULIN ASPART (*BKC) 100 UNITS/ML SUB-Q (17:47)
[2020-09-11 20:00] VITALS: PULSE 80; RESP 16; O2SAT 100
[2020-09-11] MEDS: INSULIN GLARGINE (*BKC) 100 UNITS/ML 15 UNITS SUB-Q (20:03)
[2020-09-11 20:38] LABS: Glucose Point of Care 221 (65-105)
[2020-09-11 22:00] VITALS: BP 140/61; PULSE 80; RESP 16; TEMP 36.7; O2SAT 100
[2020-09-12 05:41] LABS: Basophils Absolute Auto 0.1 K/mm3 (0.0-0.1); Basophils Percent Auto 1.5 % (0.2-1.2); Eosinophils Absolute Auto 0.6 K/mm3 (0-0.3); Eosinophils Percent Auto 12.6 % (0-4.4); Hematocrit 26.6 % (42.0-52.0); Hemoglobin 8.8 g/dL (14.0-18.0); Immature Granulocyte Absolute 0.01 K/mm3 (0.00-0.031); Immature Granulocyte Percent A 0.2 % (0-0.5); Lymphocytes Absolute Auto 1.14 K/mm3 (0.9-3.2); Lymphocytes Percent Auto 24.7 % (18.3-44.2); Mean Corpuscular HGB Conc 33.1 g/dl (32-36); Mean Corpuscular Hemoglobin 30.3 pg (26-34); Mean Corpuscular Volume 91.7 fl (80-100); Mean Platelet Volume 8.7 fl (7.4-10.4); Monocytes Absolute Auto 0.4 K/mm3 (0.1-0.6); Monocytes Percent Auto 8.9 % (2.6-8.5); Neutrophils Absolute Auto 2.4 K/mm3 (1.3-6.7); Neutrophils Percent Auto 52.1 % (45.5-73.1); Platelet Count Result 210 k/mm3 (150-375); White Blood Count 4.6 K/mm3 (4.5-10.0)
[2020-09-12 05:53] LABS: Alanine Aminotransferase 8 U/L (4-50); Albumin Level 3.6 g/dL (3.5-5.1); Alkaline Phosphatase 78 U/L (38-126); Anion Gap 6 mmol/L (8-16); Aspartate Amino Transferase 26 U/L (17-59); Bilirubin,Total 0.5 mg/dL (0.2-1.3); Blood Urea Nitrogen 36 mg/dL (9-20); Calcium 8.9 mg/dL (8.4-10.2); Carbon Dioxide 30 mmol/L (22-30); Chloride 103 mmol/L (98-107); Estimated CRCL calculation 71 ml/min; Estimated Glomerular Filt Rate > 60; Glucose 132 mg/dL (75-110); Potassium 4.6 mmol/L (3.4-5.0); Sodium 139 mmol/L (137-145)
[2020-09-12 06:00] VITALS: BP 134/68; PULSE 72; RESP 16; TEMP 36.4; O2SAT 100
[2020-09-12 06:47] LABS: Glucose Point of Care 122 (65-105)
[2020-09-12] MEDS: amLODIPine BESYLATE 5 MG TABLET 10 MG PO (08:39)
[2020-09-12] MEDS: glipiZIDE 5 MG TABLET 10 MG PO (08:39)
[2020-09-12] MEDS: metFORMIN HCL 500 MG TABLET 1000 MG PO (08:39)
[2020-09-12] MEDS: hydroCHLOROthiazide 12.5 MG CAPSULE PO (08:39)
[2020-09-12] MEDS: MAGNESIUM OXIDE 400 MG TABLET PO (08:39)
[2020-09-12] MEDS: BETAMETHASONE/CLOTRIMAZOLE CR 15 GM TUBE 1 APPLIC TOPICAL (09:02)
--- NOTE | 2020-09-12 11:29 | PM.PNNEP ---
Progress Note: A&P Assessment and Plan (1) Chronic kidney disease, stage 3a: Code(s): N18.31 - Chronic kidney disease, stage 3a Status: Acute Assessment and Plan: baseline creatinine runs 1.4 - 1.7mg/dl - creatinine currently better than baseline - this may be due to holding of EDDA/ARB when he is more active his creatinine may rise because of muscle turnover. due to diabetes and hypertension continue supportive therapy (2) Hyponatremia: Code(s): E87.1 - Hypo-osmolality and hyponatremia Status: Acute Assessment and Plan: Resolved (3) Hypertension: Code(s): I10 - Essential (primary) hypertension Status: Chronic Assessment and Plan: reasonable control at this time on amlodipine and hydrochlorothiazide ultimate plan would be to resume/restart losartan as an outpatient he will follow-up with me in the office in about 3 months. (4) Anemia: Code(s): D64.9 - Anemia, unspecified Status: Acute Assessment and Plan: probably from acute illness and CKD follow trend for now (5) Diabetes: Code(s): E11.9 - Type 2 diabetes mellitus without complications Status: Chronic Assessment and Plan: follow accu-Cheks on sliding-scale insulin Subjective Date/time seen: 09/12/20 11:29 Interval history: the patient is feeling okay. No chest pain or shortness of breath he has been eating well. Including pasta and cake which make his sugars go up. He will try to be better. Urine output is good. Exam Narrative: Exam Narrative: General: WD/WN male in NAD Heart: normal S1 and S2; no rub Lungs: clear bilaterally Abdomen: soft, nontender, nondistended, positive bowel sounds Extremities: no cyanosis or clubbing; no edema; s/p right BKA Skin: No rash Objective Data Vital Signs Vital Signs: Vital Signs - 24 hr 09/11/20 14:00 09/11/20 20:00 09/11/20 22:00 Temperature 36.4 C 36.7 C Pulse Rate 88 80 80 Respiratory Rate 20 16 16 Blood Pressure 127/68 140/61 Pulse Oximetry 100 100 100 09/12/20 06:00 Temperature 36.4 C L Pulse Rate 72 Respiratory Rate 16 Blood Pressure 134/68 Pulse Oximetry 100 Intake/Output Intake/Output: Intake & Output 02/09/10/20 09/11/20 09/12/20 23:59 23:59 23:59 23:59 Intake Total 870 1470 1060 240 Balance 870 1470 1060 240 Meds/Results Medications: Active Medications Generic Name Dose Route Start Last Admin Trade Name Freq PRN Reason Stop Dose Admin Acetaminophen 650 mg 08/28/20 22:20 Acetaminophen 325 Mg Tablet PO Q6H PRN Fever Hydrocodone Bitart/Acetaminophen 1 tab 08/29/20 08:15 Hydrocodone/Acetaminophen (*Crx) 5-325 Mg Tablet PO Q6H PRN Pain Rated 5 or Less Hydrocodone Bitart/Acetaminophen 2 tab 08/29/20 08:15 Hydrocodone/Acetaminophen (*Crx) 5-325 Mg Tablet PO Q6H PRN Pain Rated 6 or Greater Amlodipine Besylate 10 mg 08/29/20 09:00 09/12/20 08:39 Amlodipine Besylate 5 Mg Tablet PO 10 mg DAILY ISAK Administration Clotrimazole 1 applic 09/06/20 17:00 09/12/20 09:02 Betamethasone/Clotrimazole Cr 15 Gm Tube TOPICAL 1 applic Q12HR ISAK Administration Dextrose 12.5 gm 09/04/20 00:09 Dextrose 50% 25 Gm/50 Ml Syringe IV PUSH PRN PRN Hypoglycemia Protocol Glipizide 10 mg 09/04/20 07:30 09/12/20 08:39 Glipizide 5 Mg Tablet PO 10 mg DAILY@0730 ISAK Administration Glucagon 1 mg 09/04/20 00:09 Glucagon For Inj 1 Mg Vial IM PRN PRN Hypoglycemia Protocol Glucose 15 gm 09/04/20 00:09 Glucose Oral Gel 15 Gm Of Glucse In 37.5 Gm Tube PO PRN PRN Hypoglycemia Protocol Hydrochlorothiazide 12.5 mg 09/05/20 09:00 09/12/20 08:39 Hydrochlorothiazide 12.5 Mg Capsule PO 12.5 mg QAM ISKA Administration Dextrose 1,000 mls @ 100 mls/hr 08/29/20 01:19 Dextrose 5% 1,000 Ml IVPB
[2020-09-12 12:03] LABS: Glucose Point of Care 89 (65-105)
--- NOTE | 2020-09-13 15:24 | PM.DS ---
DS: Admitting Diagnosis Admitting Diagnosis Admitting Diagnosis: amputation of the left lower extremity [id number] for the diagnosis of right foot gangrene DS: Summary Hospital Course Hospital Course: gradual improvement with stabilization of the blood sugar and renal status and discharge with follow-up with the vascular surgeon with the underlying dehiscence of the wound at the site of amputation as well Time Spent with Patient Time attestation: ADMISSION FUNCTION: 55 years old right-handed male admitted to the rehab floor with primary rehab impairment category of amputation of lower extremity and the etiological diagnosis of gangrene of the right foot in addition to the comorbid conditions of 1. Diabetes mellitus 2. Peripheral neuropathy 3. Peripheral vascular disease 4. Hypertension 5. Vitamin-D deficiency 6. Acute postoperative pain 7. Acute kidney injury 7. No COVID. At the time of admission his functional measures were as follows. Eating [Set Up Only] Oral Care set up Toileting Hygiene partial assistance Shower/Bathing partial assistance Upper Body Dressing set up Lower Body Dressing partial department assistant Donning/Spicer Footwear partial assistance Rolling Left and Right independent Sit to Lying partial a partial assistance [] Sit to Stand partial assist Bed to Chair Transfers partial assistance Toilet Transfers partial assisted Car Transfers partial assist Walking 10' partial department assistant Walking 50' with Two Turns unable Walking 150' unable Curb or Step partial department assistant 4 Steps partial assisted 12 Steps unable Picking Up Object substantial or maximal assistance [Wheelchair Mobility 50'] independent [Wheelchair Mobility 150'] independent GOALS: Eating [INDEPENDENT] Oral Care [INDEPENDENT] Toileting Hygiene [INDEPENDENT] Shower/Bathing [INDEPENDENT] Upper Body Dressing [INDEPENDENT] Lower Body Dressing [INDEPENDENT] Donning/Spicer Footwear [INDEPENDENT] Rolling Left and Right [INDEPENDENT] Sit to Lying [INDEPENDENT] Lying to Sitting [INDEPENDENT] Sit to Stand [INDEPENDENT] Bed to Chair Transfers [INDEPENDENT] Toilet Transfers [INDEPENDENT] Car Transfers [INDEPENDENT] Walking 10' [INDEPENDENT] Walking 50' with Two Turns [INDEPENDENT] Walking 150' [INDEPENDENT] Curb or Step supervision 4 Steps [INDEPENDENT] 12 Steps [INDEPENDENT] Picking Up Object [INDEPENDENT] [Wheelchair Mobility 50'] [INDEPENDENT] [Wheelchair Mobility 150'] [INDEPENDENT] DISCHARGE PERFORMANCE: Eating [INDEPENDENT] Oral Care [INDEPENDENT] Toileting Hygiene [INDEPENDENT] Shower/Bathing [INDEPENDENT] Upper Body Dressing [INDEPENDENT] Lower Body Dressing [INDEPENDENT] Donning/Spicer Footwear [INDEPENDENT] Rolling Left and Right [INDEPENDENT] Sit to Lying [INDEPENDENT] Lying to Sitting [INDEPENDENT] Sit to Stand [INDEPENDENT] Bed to Chair Transfers [INDEPENDENT] Toilet Transfers [INDEPENDENT] Car Transfers [INDEPENDENT] Walking 10' [INDEPENDENT] Walking 50' with Two Turns [INDEPENDENT] Walking 150' [INDEPENDENT] Curb or Step [INDEPENDENT] 4 Steps [INDEPENDENT] 12 Steps [INDEPENDENT] Picking Up Object [INDEPENDENT] [Wheelchair Mobility 50'] [INDEPENDENT] [Wheelchair Mobility 150'] [INDEPENDENT] # throughout the hospitalization patient remains actively involved in the physical therapy and occupational therapy. His insulin was adjusted accordingly in addition to continuation of the oral hypoglycemic medication. By the time of discharge he was able to ambulate up to 150ft independently using a wheeled walker and was able to transfer in and out of chair independently. his general physical examination remained stable, the stump was healthy at 1 place it was spreading out for which he was supposed to be seeing the vascular surgeon at [facility] and the appointment had already been made. He was extremely concerned that is still he was not strong enough in his knee extensors but all the pros and cons were discussed with him for
== END 2020-09-12 13:15 | disposition home health service (06) | DRG 561 ==
PROVIDERS: Family Medicine; Internal Medicine Nephrology; Physician Assistant; Admitting Provider Psychiatry & Neurology Neurology; PCP Nurse Practitioner Family; Visit Provider Psychiatry & Neurology Neurology
DX: Z47.81 Encounter for orthopedic aftercare following surgical amputation (principal); Z89.511 Acquired absence of right leg below knee; D63.1 Anemia in chronic kidney disease; E11.51 Type 2 diabetes mellitus with diabetic peripheral angiopathy without gangrene; E11.65 Type 2 diabetes mellitus with hyperglycemia; E11.42 Type 2 diabetes mellitus with diabetic polyneuropathy; E11.22 Type 2 diabetes mellitus with diabetic chronic kidney disease; E83.51 Hypocalcemia; D50.9 Iron deficiency anemia, unspecified; I12.9 Hypertensive chronic kidney disease with stage 1 through stage 4 chronic kidney disease, or unspecified chronic kidney disease; M17.11 Unilateral primary osteoarthritis, right knee; N18.31 Chronic kidney disease, stage 3a; T87.81 Dehiscence of amputation stump; Z87.891 Personal history of nicotine dependence; Z86.73 Personal history of transient ischemic attack (TIA), and cerebral infarction without residual deficits; Z79.4 Long term (current) use of insulin
CPT/HCPCS: 36415; 71045; 80048; 80053; 80069; 81001; 81002; 81050; 82533; 82570; 82948; 83036; 83735; 84155; 84156; 84165; 84443; 85025; 85027; 86335; 97110; 97116; 97161; 97166; 97530; 97535; 97542; A9270; J0690; J0834; J1815; J3475

== ENCOUNTER 2020-10-02 19:56 | Emergency (ER) | payer OTHER, SELFPAY ==
--- NOTE | ~2020-10-02 | XR_ITS ---
XR tibia fibula RT 2V 10/02/2020 20:30 Indication: Right knee pain Procedure: 2 views right knee Comparison: 03/20/2020 Findings: Moderate osteoarthritis of the patellofemoral compartment. Status post amputation at the pr oximal aspect of the right tibia and fibula. There is a loose body overlying the joint space. No acut e fracture or traumatic malalignment. There are vascular calcifications. There is soft tissue gas dis adrián to the amputation site which may relate to laceration, although infection should be considered in the appropriate clinical setting. Impression: 1: Soft tissue gas distal to the amputation site which may reflect a laceration from trauma or infect ion. Correlate clinically. Reviewed, dictated and finalized at location A. DER SET UP OPERATOR UNIVERSAL Impression: 1: Soft tissue gas distal to the amputation site which may reflect a laceration from trauma or infection. Correlate clinically.
[2020-10-02 20:00] VITALS: BP 150/65; PULSE 106; RESP 18; TEMP 36.9; O2SAT 100
--- NOTE | 2020-10-02 20:19 | ED.LOWEXIN ---
HPI - Extremity Injury (Lower) General Chief Complaint: Extremity Injury, Lower Stated Complaint: Fall/hx recent r bka Time Seen by Provider: 10/02/20 20:07 Source: patient Mode of arrival: ambulatory Limitations: no limitations History of Present Illness HPI Narrative: Patient is a 55-year-old male complaining of pain in his right stump after he lost his balance and fell landing on his stump. Patient states that he had a below-knee amputation approximately 1 month ago. Patient states that the bleeding from his stump is nothing new, has an appointment to see a vascular surgeon tomorrow morning for. Patient denies any other pain or injuries. Related Data Allergies Allergy/AdvReac Type Severity Reaction Status Date / Time No Known Allergies Allergy Mild Verified 10/02/20 20:03 Review of Systems Review of Systems: All systems reviewed & are unremarkable except as noted in HPI and below Constitutional: Constitutional: Reports no additional constitutional complaints Comments: Denies any fever chills Cardiovascular: Comments: Denies any chest pain Respiratory: Comments: Denies any shortness of breath or cough Gastrointestinal: Comments: Denies nausea or vomiting Neurologic: Comments: Denies any headache, head pain, confusion PMFSH Past Medical History Medical History Arthritis of right knee Chronic anemia Chronic kidney disease, stage 3a History of colon polyps Hypertension Left foot drop Peripheral neuropathy Transient ischemic attack Type 2 diabetes mellitus Surgical History Surgical History History of colonoscopy Last colonoscopy was 3 years ago with reported findings of benign colon polyps History of right below knee amputation (~08/24/20) Per Dr. Dunn at [facility]. History of testicular surgery Benign mass removed from the right testicle. Family History Family History Mother Colon cancer Father ALS (amyotrophic lateral sclerosis) Diabetes mellitus Acute myocardial infarction Daughter Pulmonary embolism PCOS (polycystic ovarian syndrome) Social History Social History Social History: The patient lives alone in [place]. He has 1 daughter who lives in [place]. 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 Smoked 1.5 to 2 packs of cigarettes a day for about 38 years and quit in 2014. He drinks perhaps for alcoholic beverages a week. No illicit substance use. He designates his sister Elle Vann as his surrogate decision maker and he wishes to be a full code. Smoking packs per day: 1 Smoking cigarettes per day: 20.0 Years smoked: 20 Smoking pack-years: 20.00 Smoking status: Former smoker Tobacco type: cigarettes Smoking end date: 02/23/15 Alcohol intake: current Drinks per week: 5 Substance use: never Gender identity (if verbalized by the patient): Male Sexual Orientation (if Verbalized by the Patient): Straight or Heterosexual Spiritual care concerns: No Exam Const: General: cooperative, healthy appearing, comfortable, no acute distress, well developed, alert and awake; No confusion Orientation/consciousness: oriented to person, oriented to place, oriented to time, patient oriented x3 and No confusion Limitations: no limitations HENMT: Head: normal to inspection, normocephalic and atraumatic Ears: hearing grossly normal bilaterally, TM normal on the right and TM normal on the left General nose exam: Normal external nose present, Normal nares present and No nasal discharge present Face and sinus: normal facial exam Mouth: Yes Normal oral and palatal mucosa present, Yes lip normal, Yes tongue normal and Yes oropharynx normal Throat: posterior oropharynx normal, tonsils normal and uvula midline Eyes: General: appearance normal, both eyes and all r
[2020-10-02] MEDS: CELLULOSE OXIDIZED 2 x 14 INCH 1 PKT XX (21:03)
[2020-10-02 21:05] VITALS: BP 159/71; PULSE 100; RESP 16; O2SAT 98
== END 2020-10-02 21:20 | disposition home or self-care (01) ==
PROVIDERS: Emergency Provider Emergency Medicine; PCP Nurse Practitioner Family
DX: S80.11XA Contusion of right lower leg, initial encounter (principal); I12.9 Hypertensive chronic kidney disease with stage 1 through stage 4 chronic kidney disease, or unspecified chronic kidney disease; E11.22 Type 2 diabetes mellitus with diabetic chronic kidney disease; N18.31 Chronic kidney disease, stage 3a; M21.372 Foot drop, left foot; E11.42 Type 2 diabetes mellitus with diabetic polyneuropathy; W01.0XXA Fall on same level from slipping, tripping and stumbling without subsequent striking against object, initial encounter
CPT/HCPCS: 73590; 99283

== ENCOUNTER 2020-11-29 14:06 | Outpatient (NON) | payer OTHER, SELFPAY ==
[2020-11-29 14:57] LABS: Alanine Aminotransferase 33 U/L (4-50); Albumin Level 3.9 g/dL (3.5-5.1); Alkaline Phosphatase 92 U/L (38-126); Anion Gap 8 mmol/L (8-16); Aspartate Amino Transferase 30 U/L (17-59); Bilirubin,Total 0.9 mg/dL (0.2-1.3); Blood Urea Nitrogen 44 mg/dL (9-20); Calcium 9.1 mg/dL (8.4-10.2); Carbon Dioxide 25 mmol/L (22-30); Chloride 101 mmol/L (98-107); Estimated Glomerular Filt Rate 45; Glucose 214 mg/dL (75-110); Potassium 5.7 mmol/L (3.4-5.0); Sodium 134 mmol/L (137-145)
== END 2020-11-29 14:07 | disposition home or self-care (01) ==
PROVIDERS: PCP Nurse Practitioner Family; Visit Provider Nurse Practitioner Family
DX: Z47.81 Encounter for orthopedic aftercare following surgical amputation (principal); E11.65 Type 2 diabetes mellitus with hyperglycemia; E11.22 Type 2 diabetes mellitus with diabetic chronic kidney disease; I13.10 Hypertensive heart and chronic kidney disease without heart failure, with stage 1 through stage 4 chronic kidney disease, or unspecified chronic kidney disease
CPT/HCPCS: 80053

== ENCOUNTER → 2020-12-09 09:53 | Outpatient (CLI) | payer OTHER, SELFPAY ==
--- NOTE | ~2020-12-09 | MR_ITS ---
EXAMINATION: MR humerus RT wo con DATE: 12/09/2020 11:31 INDICATION: Lesion of humerus. Right shoulder and arm pain. TECHNIQUE: Magnetic resonance imaging (MRI) of the right humerus was performed without intravenous co ntrast. Sequences included axial T1-weighted FSE and T2-weighted FS FSE and coronal and sagittal T1-w eighted FSE and STIR FSE. COMPARISON: Right shoulder radiographs 07/24/2020 FINDINGS: Bone alignment is normal. No fracture. There is a 14 mm lesion of mixed signal intensity wi th double line sign in right humeral head correlating with a sclerotic lesion on radiographs. There i s a degenerative cyst in greater tuberosity of right humerus. The glenohumeral joint is normal. There is a full-thickness tear of the rotator cuff. There is moderate subacromial/subdeltoid bursitis. IMPRESSION: 1. 14 mm lesion in right humeral head correlating with a sclerotic lesion on radiographs, likely oste onecrosis. 2. Full-thickness rotator cuff tear. 3. Moderate subacromial/subdeltoid bursitis. Reviewed, dictated and finalized at location A. IMPRESSION: 1. 14 mm lesion in right humeral head correlating with a sclerotic lesion on ra diographs, likely osteonecrosis. 2. Full-thickness rotator cuff tear. 3. Moderate subacromial/subdeltoid bursitis.
== END ==
PROVIDERS: PCP Nurse Practitioner Family; Visit Provider Nurse Practitioner Family
DX: M75.101 Unspecified rotator cuff tear or rupture of right shoulder, not specified as traumatic (principal); M75.51 Bursitis of right shoulder; M75.91 Shoulder lesion, unspecified, right shoulder
CPT/HCPCS: 73218

== ENCOUNTER 2020-12-16 12:15 | Outpatient (NON) | payer OTHER, SELFPAY ==
[2020-12-16 12:31] LABS: Basophils Absolute Auto 0.1 K/mm3 (0.0-0.1); Basophils Percent Auto 1.1 % (0.2-1.2); Eosinophils Absolute Auto 0.4 K/mm3 (0-0.3); Eosinophils Percent Auto 6.9 % (0-4.4); Hematocrit 29.2 % (42.0-52.0); Hemoglobin 9.7 g/dL (14.0-18.0); Immature Granulocyte Absolute 0.05 K/mm3 (0.00-0.031); Immature Granulocyte Percent A 0.8 % (0-0.5); Lymphocytes Absolute Auto 1.47 K/mm3 (0.9-3.2); Lymphocytes Percent Auto 23.4 % (18.3-44.2); Mean Corpuscular HGB Conc 33.2 g/dl (32-36); Mean Corpuscular Hemoglobin 29.2 pg (26-34); Mean Platelet Volume 8.8 fl (7.4-10.4); Monocytes Absolute Auto 0.4 K/mm3 (0.1-0.6); Monocytes Percent Auto 6.9 % (2.6-8.5); Neutrophils Absolute Auto 3.8 K/mm3 (1.3-6.7); Neutrophils Percent Auto 60.9 % (45.5-73.1); Platelet Count Result 273 k/mm3 (150-375); Red Blood Count 3.32 M/mm3 (4.6-6.20); White Blood Count 6.3 K/mm3 (4.5-10.0)
[2020-12-16 12:42] LABS: Alanine Aminotransferase 23 U/L (4-50); Albumin Level 3.9 g/dL (3.5-5.1); Alkaline Phosphatase 71 U/L (38-126); Anion Gap 5 mmol/L (8-16); Aspartate Amino Transferase 25 U/L (17-59); Bilirubin,Total 0.4 mg/dL (0.2-1.3); Blood Urea Nitrogen 31 mg/dL (9-20); Calcium 9.2 mg/dL (8.4-10.2); Carbon Dioxide 26 mmol/L (22-30); Chloride 101 mmol/L (98-107); Estimated Glomerular Filt Rate 57; Glucose 228 mg/dL (75-110); Potassium 4.9 mmol/L (3.4-5.0); Sodium 132 mmol/L (137-145)
== END 2020-12-16 12:16 | disposition home or self-care (01) ==
PROVIDERS: PCP Nurse Practitioner Family; Visit Provider Nurse Practitioner Family
DX: Z47.81 Encounter for orthopedic aftercare following surgical amputation (principal); E11.65 Type 2 diabetes mellitus with hyperglycemia; E11.22 Type 2 diabetes mellitus with diabetic chronic kidney disease; I13.10 Hypertensive heart and chronic kidney disease without heart failure, with stage 1 through stage 4 chronic kidney disease, or unspecified chronic kidney disease; E87.5 Hyperkalemia; D64.9 Anemia, unspecified
CPT/HCPCS: 80053; 85025

== ENCOUNTER → 2021-05-30 11:44 | Outpatient (CLI) | payer OTHER, SELFPAY ==
--- NOTE | ~2021-05-30 | MR_ITS ---
EXAMINATION: MR lower leg RT wo con DATE: 05/30/2021 12:34 INDICATION: Acute heterogenous osteomyelitis TECHNIQUE: Magnetic resonance imaging (MRI) of the right lower leg was performed without intravenous contrast extending from above the knee through the stump of a right hatjv-bdi-[id number] amputation. Sequen el included axial, sagittal and coronal T1-weighted FSE, axial T2-weighted FS FSE and sagittal and c oronal fluid sensitive FSE STIR. COMPARISON: Radiographs dated 10/02/2020 FINDINGS: There is a right qrywr-hst-cfxh amputation with smooth corticated osteotomy margins. There is normal underlying marrow signal with no reactive edema or loss of T1 fat signal to suggest osteomyelitis or other pathologic marrow replacing process. There is moderate to severe osteoarthritis at the lateral side of the patellofemoral articulation with full/near full-thickness patellar cartilage loss with mi ld underlying subarticular edema at the lateral facet. The anterior and posterior cruciate and medial and lateral collateral ligament complexes are normal. Normal menisci. Small right knee joint effusio n. There is a loculated subcutaneous fluid collection overlying the anterior tibial tubercle which me asures 9 cm craniocaudally and 4.1 x 1.4 cm in maximal orthogonal dimensions. The fluid collection is complex with mildly increased T1 signal in the layering fluid fluid level suggesting either proteina ceous fluid with debris or hematoma with layering hematocrit level. No significant surrounding edema. There is fatty atrophy of the musculature of the remaining stump of the proximal lower leg. IMPRESSION: 1. 9.0 x 4.1 x 1.4 cm complex subcutaneous fluid collection overlying the anterior tibial tuberosity. This could represent bursitis either septic or aseptic or a hematoma. 2. Right gwxeb-yjy-ffok amputation with no findings to suggest osteomyelitis. Reviewed, dictated and finalized at location A. IMPRESSION: 1. 9.0 x 4.1 x 1.4 cm complex subcutaneous fluid collection overlying the anter ior tibial tuberosity. This could represent bursitis either septic or aseptic o r a hematoma. 2. Right idtcm-yds-bufq amputation with no findings to suggest osteomyelitis.
== END ==
DX: M86.00 Acute hematogenous osteomyelitis, unspecified site (principal); Z89.511 Acquired absence of right leg below knee
CPT/HCPCS: 73718

== ENCOUNTER 2021-07-24 11:00 | Outpatient (RCR) | payer OTHER, SELFPAY ==
--- NOTE | 2021-06-09 12:49 | PTOPEVAL ---
PHYSICAL THERAPY EVALUATION AND PLAN OF CARE Thank you for referring Handy Potts to [facility].? The patient is scheduled to be seen for therapy? 2x/week for 4 weeks. Please review, sign, date and return this plan of care CAMERON. I agree with and certify that the following plan of care is medically necessary. Referring Physician Date Attending Provider: CHERIE CHERRY, SALES ANALYTICS MANAGER Evaluation Outpatient Past Medical History Neurological History Hx Cerebrovascular Accident (CVA) Yes Cardiovascular History Hx Cardiac Catheterization Yes Hx Chest Pain Yes Hx Hypertension Yes Hx Peripheral Vascular Disease Yes Hx Other Cardiac Disorders Yes: peripheral arterial disease Respiratory History Hx Pneumonia Yes Hx Sleep Apnea Yes: wears CPAP Gastrointestinal History Hx Polyps Yes: benign Genitourinary History Hx Other Genitourinary Disorders Yes: Kidney disease Musculoskeletal History Hx Amputation Yes: RBKA currently Hx Arthritis Yes Hx Back Pain Yes Hx Gout Yes: possibly Hematological History Hx Anemia Yes Hx Blood Transfusions Yes Endocrine History Hx Diabetes Yes HEENT History Hx Cataracts Yes Hx Other HEENT Disorders Yes: gets injection for macular edema R eye cloudy currently Integumentary History Hx Other Skin Disorders Yes: dryness Reproductive History Hx Reproductive Disorders No Significant History Psychosocial History Hx Anxiety Yes Hx Depression Yes Pain History History of Any Previous or Ongoing No Significant History Instance of Pain Anesthesia History Hx Anesthesia Reactions No Significant History Other History Hx Other Medical Conditions Yes: peripheral neuropathy Hx Other Surgeries Yes: cyst removed on testicle R BKA Diagnosis right BKA Onset august 2020 Subjective Information Infection of right foot that Query Text:As Reported By Patient/ resulted in right below knee Family amputation (transtibial). He now ambulates with a prothsethic with a straight cane. He also has a left foot drop that he has had for 5-6 years. There is a very small amount of motion in the left ankle. He has an electrical stimulator that he uses on the
--- NOTE | 2021-07-24 11:50 | PTOPEVAL ---
PHYSICAL THERAPY PROGRESS REPORT Thank you for referring Handy Potts to [facility].? The patient is scheduled to be seen for therapy? 1x/week for 5 weeks. Please review, sign, date and return this plan of care CAMERON. I agree with and certify that the following plan of care is medically necessary. Referring Physician Date Attending Provider: CHERIE CHERRY, ON AIR ANNOUNCER Progress Diagnosis right BKA Onset august 2020 Pain Assessment Timing of Pain Assessment Timing of Pain Assessment Assessment Self Report Self Report Pain Level 0 Pain Score Pain Score 0: Self Report Lower Extremity Muscle Strength Testing Hip Strength Bilateral Hip Flexion Strength 5 Normal Hip Extension Strength 4+ Good + Hip Abduction Strength 5 Normal Knee Strength Bilateral Knee Flexion Strength 5 Normal Knee Extension Strength 4+ Good + Muscle Length Testing Muscle Length Testing Left Hamstring Length -45 Query Text:(90 - 90 Position) Right Hamstring Length -25 Query Text:(90 - 90 Position) Balance Assessment Cohen Balance Assessment Sitting to Standing Independent w/out Hands Unsupported Stance Ability Safely- 2 minutes Sitting Unsupported, Feet on Floor Safely- 2 minutes Standing to Sitting Safely, Minimal Hand Use Transfer Ability Safely, Minimal Hand Use Unsupported Stance- Eyes Closed 3 seconds Unsupported Stance- Feet Together Independent, 1 minute Reaching Forward while Standing Safely, 5 inches car seat upholsterer Object From Floor Independent/Safe Look Behind Shoulder - Standing Turns Sideways Only Turning 360 Degrees Turns slowly, but safely Unsupported Stance, Alternating Feet on 2 Steps w/Minimum Assist Stair Unsupported Tandem Stance Small Step- 30 seconds Unilateral Leg Stance Lifts Leg/Unable to Hold COHEN Balance Evaluation Total Score (/56 41 points) Comments 1month ago = 34/56 Time Up Go (TUG) Timed Up and Go Test (TUG) (Seconds) 17 Assistive Devices Cane, Straight 5 Time Sit to Stand Time in Seconds 19.68 5 Time Sit to Stand Comments with hands Query Text:Normative Data: If Greater 1month ago 18.83seconds with Than 15 Seconds, 74% Increase Risk for hands Recurrent Falls Gait Assessment Gait Pattern Assessment Gait Pattern No Deviations/Normal Other Gait Observations neutral hips during gait 2 Minute Walk Total Distance Walked (feet) 286 2 Minute Walk Gait Speed Score (feet/ 2.38 second) 2 Minute Walk Test Comments 1month ago = 246ft (2.05ft/ second with straight cane) PT Clinical Summary Handy is progressing very well
--- NOTE | 2021-08-01 16:11 | PCPTNOTE ---
Patient called & cancelled scheduled appointment this date due to being exposed to Covid.
--- NOTE | 2021-08-05 10:32 | PCPTNOTE ---
Patient called & cancelled scheduled appointment this date due to resting stump.
--- NOTE | 2021-08-12 08:00 | PCPTNOTE ---
Patient called & cancelled scheduled appointment on 08/12 stating that everything is being put on hold until after surgery.
--- NOTE | 2021-08-28 08:43 | PCPTNOTE ---
PHYSICAL THERAPY DISCHARGE NOTE Attending Provider: CHERIE CHERRY, SOLID WASTE MANAGEMENT ENGINEER Patient:Handy Potts Date of :1965 Patient has not returned for any further treatments since 07/24/2021, therefore he will be discharged at this time. Patient?s initial visit was on 06/09/2021. The goals have been partially met. Thank you [facility] this [facility]. Please review, sign, date and return this discharge summary CAMERON. I have been updated about the patient's current status and I agree with discharge from the above service at this time. Referring Physician Date
== END 2021-08-28 11:47 | disposition home or self-care (01) ==
LOC: ANHPT 11:00
PROVIDERS: Visit Provider Nurse Practitioner Family
DX: Z47.81 Encounter for orthopedic aftercare following surgical amputation (principal); Z89.511 Acquired absence of right leg below knee
CPT/HCPCS: 97014; 97110; 97163; 97530; G0283

== ENCOUNTER 2022-01-23 13:26 | Inpatient (IN) | payer OTHER, SELFPAY ==
[2022-01-23] VITALS (12 sets, daily range): BP systolic 99–149; BP diastolic 59–80; PULSE 76–82; RESP 0–20; TEMP 36.4–37.2; O2SAT 20–100
--- NOTE | ~2022-01-23 | XR_ITS ---
XR chest 1V portable DATE: 01/23/2022 14:32 INDICATION: Cough TECHNIQUE: Portable AP chest on 01/23/2022 at 1424 hours COMPARISON: August 28, 2020 portable AP chest FINDINGS: Normal heart size. No hilar or mediastinal enlargement. No pulmonary infiltrate or consolid ation, pleural effusion or pulmonary vascular congestion or pneumothorax. Included skeletal structure s are unremarkable. IMPRESSION: No active cardiopulmonary disease Reviewed, dictated and finalized at location A.
--- NOTE | 2022-01-23 13:52 | ED.URI ---
HPI - URI/Sore Throat General Chief Complaint: Upper Respiratory Infection Stated Complaint: generalized weakness Time Seen by Provider: 01/23/22 13:45 History of Present Illness HPI Narrative: 56-year-old male presents to the emergency room for weakness. Patient states he has had a cough and was diagnosed with COVID this morning. Patient was seen at his primary care physician's office and was in recommended to come to the emergency room for further evaluation. Related Data Home Medications Medication Instructions Recorded Confirmed amlodipine 10 mg tablet 10 mg PO DAILY 02/28/21 02/28/21 aspirin 81 mg tablet 81 mg PO DAILY 02/28/21 02/28/21 atorvastatin 40 mg tablet 40 mg PO DAILY 02/28/21 02/28/21 glipizide 5 mg tablet 10 mg PO HS 02/28/21 02/28/21 insulin glargine 100 unit/mL 10 unit subcut HS 02/28/21 02/28/21 subcutaneous solution (Lantus U-100 Insulin) Allergies Allergy/AdvReac Type Severity Reaction Status Date / Time No Known Allergies Allergy Mild Verified 04/03/21 11:23 Review of Systems Review of Systems: CONSTITUTIONAL: Denies fever, chills, or sweats. EYES: Denies visual changes, redness, or discharge. ENT: Denies rhinorrhea, congestion, sore throat, or otalgia. CARDIOVASCULAR: Denies chest pain, palpitations, or edema. RESPIRATORY: Reports cough GASTROINTESTINAL: Denies abdominal pain, nausea, vomiting, or diarrhea. GENITOURINARY: Denies dysuria or hematuria. SKIN: Denies rash or itching. MUSCULOSKELETAL: Denies back pain, joint pain, or myalgia. NEUROLOGIC: Reports weakness PSYCHIATRIC: Denies anxiety or depression. [facility] Past Medical History Medical History Arthritis of right knee CAD (coronary artery disease) Chronic anemia Chronic kidney disease, stage 3a History of colon polyps Hypertension Left foot drop Left foot drop Osteoarthritis Peripheral neuropathy Rheumatoid arthritis Transient ischemic attack Type 2 diabetes mellitus Yeast dermatitis Surgical History Surgical History History of colonoscopy Last colonoscopy was 3 years ago with reported findings of benign colon polyps History of right below knee amputation (~08/24/20) Per Dr. Dunn at [facility]. History of testicular surgery Benign mass removed from the right testicle. Family History Family History Mother Colon cancer Father ALS (amyotrophic lateral sclerosis) Diabetes mellitus Acute myocardial infarction Daughter Pulmonary embolism PCOS (polycystic ovarian syndrome) Social History Social History Social History: The patient lives alone in [place]. He has 1 daughter who lives in [place]. 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 Smoked 1.5 to 2 packs of cigarettes a day for about 38 years and quit in 2014. He drinks perhaps for alcoholic beverages a week. No illicit substance use. He designates his sister Elle Vann as his surrogate decision maker and he wishes to be a full code. Smoking packs per day: 1 Smoking cigarettes per day: 20.0 Years smoked: 20 Smoking pack-years: 20.00 Smoking status: Former smoker Tobacco type: cigarettes Second hand tobacco smoke exposure: Yes Smoking end date: 02/23/15 Additional smoking assessment comments: quit 7 years ago Alcohol intake: current Drinks per week: 5 Substance use: never Gender identity (if verbalized by the patient): Male Sexual Orientation (if Verbalized by the Patient): Straight or Heterosexual Spiritual care concerns: No Exam Narrative: GENERAL: Well-appearing, well-nourished, no physical limitations, and in no acute distress. HEAD: Normocephalic, atraumatic. EYES: Conjunctivae normal, PERRLA and EOMI. CHEST: Clear to auscultation. No respiratory distress. No wheezes rales or rhonchi. No tenderne
[2022-01-23] MEDS: SODIUM CHLORIDE 0.9% IV 1,000 ML 999 ML IV CONT ×2 (14:36→16:39)
[2022-01-23 14:58] LABS: Basophils Percent Auto 0.6 % (0.2-1.2); Eosinophils Absolute Auto 0.1 K/mm3 (0-0.3); Eosinophils Percent Auto 2.1 % (0-4.4); Hemoglobin 12.8 g/dL (14.0-18.0); Immature Granulocyte Absolute 0.01 K/mm3 (0.00-0.031); Immature Granulocyte Percent A 0.2 % (0-0.5); Lymphocytes Absolute Auto 1.34 K/mm3 (0.9-3.2); Lymphocytes Percent Auto 28.8 % (18.3-44.2); Mean Corpuscular HGB Conc 34.6 g/dl (32-36); Mean Corpuscular Hemoglobin 31.7 pg (26-34); Mean Corpuscular Volume 91.6 fl (80-100); Mean Platelet Volume 9.6 fl (7.4-10.4); Monocytes Absolute Auto 0.6 K/mm3 (0.1-0.6); Monocytes Percent Auto 12.9 % (2.6-8.5); Neutrophils Absolute Auto 2.6 K/mm3 (1.3-6.7); Neutrophils Percent Auto 55.4 % (45.5-73.1); Platelet Count Result 166 k/mm3 (150-375); Red Blood Count 4.04 M/mm3 (4.6-6.20); Red Cell Distribution Width 12.4 % (11.5-14.5); White Blood Count 4.7 K/mm3 (4.5-10.0)
[2022-01-23 16:17] LABS: Alanine Aminotransferase 24 U/L (6-50); Albumin Level 4.3 g/dL (3.5-5.1); Alkaline Phosphatase 62 U/L (38-126); Anion Gap 12 mmol/L (8-16); Aspartate Amino Transferase 25 U/L (17-59); Bilirubin,Total 1.5 mg/dL (0.2-1.3); Blood Urea Nitrogen 30 mg/dL (9-20); Calcium 8.8 mg/dL (8.4-10.2); Carbon Dioxide 20 mmol/L (22-30); Chloride 103 mmol/L (98-107); Estimated CRCL calculation 41 ml/min; Estimated Glomerular Filt Rate 33; Glucose 203 mg/dL (65-110); Lipase 116 U/L (23-300); Potassium 4.7 mmol/L (3.4-5.0); Sodium 135 mmol/L (137-145)
[2022-01-23 16:29] LABS: Troponin I < 0.012 ng/mL (0.000-0.034)
--- NOTE | 2022-01-23 16:45 | PM.IMHP ---
H&P: HPI History of Present Illness Date/Time: Patient was placed observation status for expected length of stay less than 23 hours for management, will plan to re-evaluate tomorrow for improvement. 01/23/22 16:45 Chief Complaint: Weakness Narrative: Mr. Potts is a 56-year-old gentleman who presented emergency with complaints of generalized weakness and body aches for 2 days. Patient states that he went out with his friends on Wednesday for lunch and then on Wednesday his friend told him that he was positive for COVID. Patient states on Wednesday of this week he began having generalized body aches and feeling extremely weak. Patient states since Wednesday he has not been eating or drinking very well. Patient states he just has not been hungry and felt too weak to get up. Patient went to his primary care provider today and was tested for COVID and was positive. Patient states the highest his temperature was at home was 99.9? F. patient denies any shortness of breath, cough, chest pain, dyspnea exertion, lightheadedness, dizziness, syncopal, or near syncopal episodes. Patient denies any nausea, vomiting, constipation, or diarrhea. Patient denies any dysuria, hematuria, frequency, or urgency. Patient has a known history of diabetes mellitus, hypertension, chronic kidney disease, anemia, and left footdrop. Patient does have a history of a right BKA. Review of Systems Review of Systems: A 12 point review of systems was completed patient all pertinent positive and negative per HPI the remainder are unremarkable. [facility] Past Medical History Medical History Arthritis of right knee CAD (coronary artery disease) Chronic anemia Chronic kidney disease, stage 3a History of colon polyps Hypertension Left foot drop Left foot drop Osteoarthritis Peripheral neuropathy Rheumatoid arthritis Transient ischemic attack Type 2 diabetes mellitus Yeast dermatitis Surgical History Surgical History History of colonoscopy Last colonoscopy was 3 years ago with reported findings of benign colon polyps History of right below knee amputation (~08/24/20) Per Dr. Dunn at [facility]. History of testicular surgery Benign mass removed from the right testicle. Family History Family History Mother Colon cancer Father ALS (amyotrophic lateral sclerosis) Diabetes mellitus Acute myocardial infarction Daughter Pulmonary embolism PCOS (polycystic ovarian syndrome) Social History Social History Social History: The patient lives alone in [place]. He has 1 daughter who lives in [place]. 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 Smoked 1.5 to 2 packs of cigarettes a day for about 38 years and quit in 2014. He drinks perhaps for alcoholic beverages a week. No illicit substance use. He designates his sister Elle Vann as his surrogate decision maker and he wishes to be a full code. Smoking packs per day: 1 Smoking cigarettes per day: 20.0 Years smoked: 20 Smoking pack-years: 20.00 Smoking status: Former smoker Tobacco type: cigarettes Second hand tobacco smoke exposure: Yes Smoking end date: 02/23/15 Additional smoking assessment comments: quit 7 years ago Alcohol intake: current Drinks per week: 5 Substance use: never Gender identity (if verbalized by the patient): Male Sexual Orientation (if Verbalized by the Patient): Straight or Heterosexual Spiritual care concerns: No Meds Home Medications and Allergies Home Medications Medication Instructions Recorded Confirmed Type hydrochlorothiazide 12.5 mg tablet 12.5 mg PO DAILY #90 tabs 09/11/20 02/28/21 Rx metformin 1,000 mg tablet 1,000 mg PO BID #180 tabs 09/11/20 02/28/21 Rx amlodipine 10 mg tablet 10 mg PO DAILY 02/28/21 02/28/21 History asp
[2022-01-23 17:13] LABS: Lactic Acid Reflex 1.1 mmol/L (0.7-2.0)
--- NOTE | 2022-01-23 18:53 | ADMGEN ---
This patient, Handy Potts, was admitted to Medical Room 349-01. Patient/family oriented to hospital policies and general routines including ID bracelet, bed and alarms, visiting hours, pain management, procedures, bathroom and other care routines, personal items, smoking policy, room service/diet, and visiting hours. Information on how to activate the Rapid Response Team has been discussed. Patient/Family are encouraged to report perceived risks to care and to ask questions if they do not understand what they are told or what they should do.
[2022-01-23 23:15] LABS: Glucose Point of Care 223 mg/dl (65-105)
[2022-01-24] MEDS: diphenhydrAMINE HCl CAP 25 MG CAPSULE PO (01:06)
[2022-01-24] MEDS: HEPARIN SODIUM 5,000 UNITS/ML VIAL 5000 UNITS SUB-Q ×2 (01:06→09:23)
[2022-01-24] MEDS: SODIUM CHLORIDE 0.9% IV 1,000 ML 125 ML IV CONT ×2 (01:07→09:25)
[2022-01-24] MEDS: INSULIN ASPART (*BKC) 100 UNITS/ML SUB-Q ×2 (01:07→17:34)
[2022-01-24 05:46] VITALS: BP 132/54; PULSE 75; RESP 18; TEMP 37.1; O2SAT 99
[2022-01-24 06:11] LABS: Basophils Percent Auto 0.8 % (0.2-1.2); Eosinophils Absolute Auto 0.2 K/mm3 (0-0.3); Eosinophils Percent Auto 4.1 % (0-4.4); Hemoglobin 11.7 g/dL (14.0-18.0); Immature Granulocyte Absolute 0.02 K/mm3 (0.00-0.031); Immature Granulocyte Percent A 0.5 % (0-0.5); Lymphocytes Absolute Auto 1.26 K/mm3 (0.9-3.2); Lymphocytes Percent Auto 34.2 % (18.3-44.2); Mean Corpuscular HGB Conc 35.5 g/dl (32-36); Mean Corpuscular Hemoglobin 32.5 pg (26-34); Mean Corpuscular Volume 91.7 fl (80-100); Mean Platelet Volume 9.4 fl (7.4-10.4); Monocytes Absolute Auto 0.4 K/mm3 (0.1-0.6); Monocytes Percent Auto 10.6 % (2.6-8.5); Neutrophils Absolute Auto 1.8 K/mm3 (1.3-6.7); Neutrophils Percent Auto 49.8 % (45.5-73.1); Platelet Count Result 151 k/mm3 (150-375); White Blood Count 3.7 K/mm3 (4.5-10.0)
[2022-01-24 06:18] LABS: Alanine Aminotransferase 20 U/L (6-50); Albumin Level 3.7 g/dL (3.5-5.1); Alkaline Phosphatase 50 U/L (38-126); Anion Gap 6 mmol/L (8-16); Aspartate Amino Transferase 24 U/L (17-59); Bilirubin,Total 0.7 mg/dL (0.2-1.3); Blood Urea Nitrogen 25 mg/dL (9-20); Carbon Dioxide 24 mmol/L (22-30); Chloride 108 mmol/L (98-107); Estimated CRCL calculation 61 ml/min; Estimated Glomerular Filt Rate 52; Glucose 167 mg/dL (65-110); Magnesium 1.8 mg/dL (1.6-2.3); Sodium 138 mmol/L (137-145)
[2022-01-24 08:00] VITALS: PULSE 72; RESP 16; O2SAT 100
[2022-01-24 08:32] LABS: Glucose Point of Care 144 mg/dl (65-105)
[2022-01-24] MEDS: amLODIPine BESYLATE 5 MG TABLET 10 MG PO (09:23)
[2022-01-24] MEDS: ASPIRIN 81 MG CHEWABLE TABLET PO (09:24)
[2022-01-24] MEDS: ATORVASTATIN 10 MG TABLET PO (09:24)
[2022-01-24] MEDS: LOSARTAN POTASSIUM 50 MG TABLET PO (09:24)
[2022-01-24 11:53] LABS: Glucose Point of Care 162 mg/dl (65-105)
[2022-01-24 13:52] VITALS: BP 122/50; PULSE 72; RESP 16; TEMP 36; O2SAT 100
--- NOTE | 2022-01-24 15:44 | PM.IMPN ---
Progress Note: A&P Assessment and Plan (1) GT (acute kidney injury): Code(s): N17.9 - Acute kidney failure, unspecified Status: Acute (2) COVID-19: Code(s): U07.1 - COVID-19 Status: Acute (3) Hypertension: Code(s): I10 - Essential (primary) hypertension Status: Acute (4) Type 2 diabetes mellitus with hyperglycemia: Code(s): E11.65 - Type 2 diabetes mellitus with hyperglycemia Status: Acute Plan Patient presents emergency room complaints of weakness, diarrhea and body aches. No fevers. He has remained on room air. Chest x-ray was clear. White count dropped to 3700 although not uncommon with COVID. BUN 30 and Cr 2.1. Baseline C 1.0-1.3 mostly since last year. He was started on IV fluids. Cr better today at 1.4. IV fluids stopped. He was able to ambulate in the room. He feels better overall. He does not have a ride today so discharge held until tomorrow. Subjective Date/time seen: 01/24/22 15:44 Interval history: 56yo male with DM, HTN, CKD, right BKA and left foot drop here for GNW, diarrhea and body aches. He tested positive for COVID the day of admission. Patient feeling better today. Diarrhea has resolved. Eating normally. Nonproductive cough is persistent. Minimal shortness of breath. He has been up at the side of the bed but not ambulating. Exam Narrative: AF 96.8 122/50 72 16 100% ra Gen - NARD Chest - distant BS, nml RR CV - RRR S1/S2 Abd - Soft, NT/ND, Positive BS Ext - No pedal edema; R BKA. Left foot in brace Psych - Nml mood and affect Skin - Warm and dry Objective Data Vital Signs Vital Signs: Vital Signs - 24 hr 01/23/22 16:02 01/23/22 16:15 01/23/22 16:55 Temperature Pulse Rate Respiratory Rate 20 Blood Pressure 108/62 Pulse Oximetry 100 95 99 01/23/22 18:40 01/23/22 17:00 01/23/22 19:03 Temperature 99.0 F Pulse Rate 81 80 81 Respiratory Rate 20 20 18 Blood Pressure 139/70 108/62 114/80 Pulse Oximetry 100 100 20 L 07/01/22 22:00 01/24/22 05:46 01/24/22 13:52 Temperature 98.6 F 98.7 F 96.8 F L Pulse Rate 82 75 72 Respiratory Rate 18 18 16 Blood Pressure 149/59 H 132/54 L 122/50 L Pulse Oximetry 100 99 100 Intake/Output Intake/Output: Intake & Output 01/21/22 01/22/22 01/23/22 01/24/22 23:59 23:59 23:59 23:59 Intake Total 1999 1439 Output Total 275 1875 Balance 1725 -532 Meds/Results Medications: Active Medications Generic Name Dose Route Start Last Admin Trade Name Freq PRN Reason Stop Dose Admin Acetaminophen 650 mg 01/23/22 16:43 Acetaminophen 325 Mg Tablet PO Q6H PRN Mild Pain (1-3) or Fever Amlodipine Besylate 10 mg 01/24/22 09:00 01/24/22 09:23 Amlodipine Besylate 5 Mg Tablet PO 10 mg DAILY ISAK Administration Aspirin 81 mg 01/24/22 08:00 01/24/22 09:24 Aspirin 81 Mg Chewable Tablet PO 81 mg DAILY@0800 ISAK Administration Atorvastatin Calcium 10 mg 01/24/22 09:00 01/24/22 09:24 Atorvastatin 10 Mg Tablet PO 10 mg DAILY ISAK Administration Dextrose 12.5 gm 01/23/22 16:43 Dextrose 50% 25 Gm/50 Ml Syringe IV PUSH PRN PRN Hypoglycemia Protocol Glucagon 1 mg 01/23/22 16:43 Glucagon For Inj 1 Mg Vial IM PRN PRN Hypoglycemia Protocol Glucose 15 gm 01/23/22 16:43 Glucose Oral Gel 15 Gm Of Glucse In 37.5 Gm Tube PO PRN PRN Hypoglycemia Protocol Heparin Sodium (Porcine) 5,000 units 01/23/22 21:00 01/24/22 09:23 Heparin Sodium 5,000 Units/Ml Vial SUB-Q 5,000 units Q12HR ISAK Administration Sodium Chloride 1,000 mls @ 125 mls/hr 01/23/22 16:30 01/24/22 09:25 Normal Saline Iv IV CONT 125 mls/hr .Q8H ISAK Administration Dextrose 1,000 mls @ 100 mls/hr 01/23/22 16:43 Dextrose 5% 1,000 Ml IVPB PRN PRN Hypoglycemia Protocol Insulin Aspart 2 - 5 units 01/23/22 17:00 01/24/22 12:49 Insulin Aspart (*Bkc) 100 Units/Ml SUB-Q No
[2022-01-24 16:51] LABS: Glucose Point of Care 233 mg/dl (65-105)
--- NOTE | 2022-01-24 18:00 | PM.DS ---
DS: Admitting Diagnosis Discharge Date 01/24/22 Admitting Diagnosis Weakness DS: Discharge Diagnosis Discharge Diagnosis (1) GT (acute kidney injury): Code(s): N17.9 - Acute kidney failure, unspecified Status: Acute (2) COVID-19: Code(s): U07.1 - COVID-19 Status: Acute (3) Hypertension: Code(s): I10 - Essential (primary) hypertension Status: Acute (4) Type 2 diabetes mellitus with hyperglycemia: Code(s): E11.65 - Type 2 diabetes mellitus with hyperglycemia Status: Acute DS: Summary Hospital Course Reason for hospitalization: 56yo male with DM, HTN, CKD, right BKA and left foot drop here for GNW, diarrhea and body aches. He tested positive for COVID the day of admission. Please see H&P for details Hospital Course: Patient presents emergency room with complaints of 2 days of weakness, diarrhea and body aches. He had tested positive for COVID on the day of admission. No fevers. He has remained on room air. Chest x-ray was clear. White count dropped to 3700 although not uncommon with COVID. BUN 30 and Cr 2.1. Baseline C 1.0-1.3 mostly since last year. He was started on IV fluids. Cr better today at 1.4. IV fluids stopped. He was able to ambulate in the room. He feels better overall. He was able to find a ride so able to be discharged home on 01/24/22 Status at Discharge Cognitive/behavioral status at discharge: stable Time Spent with Patient Time attestation: Total time spent providing and/or coordinating discharge services: 34 minutes Time spent: Greater than 30 minutes Exam Narrative: AF 96.8 122/50 72 16 100% ra Gen - NARD Chest - distant BS, nml RR CV - RRR S1/S2 Abd - Soft, NT/ND, Positive BS Ext - No pedal edema; R BKA. Left foot in brace Psych - Nml mood and affect Skin - Warm and dry DS: Data Data Completed and Pending Labs on day of discharge: Labs from last 24 hours 01/24/22 01/24/22 01/24/22 16:38 11:43 08:26 WBC RBC Hgb Hct MCV MCH MCHC RDW Plt Count MPV Immature Gran % (Auto) Neut % (Auto) Lymph % (Auto) [place] % (Auto) Eos % (Auto) Baso % (Auto) Lymph # (Auto) [place] # (Auto) Eos # (Auto) Baso # (Auto) Abs Immat Gran (auto) Absolute Neuts (auto) Absolute Nucleated RBC Nucleated RBC % Sodium Potassium Chloride Carbon Dioxide Anion Gap BUN Creatinine Estim Creat Clear Calc Estimated GFR Glucose POC Capillary Glucose 233 H 162 H 144 H Calcium Magnesium Total Bilirubin AST ALT Alkaline Phosphatase Total Protein Albumin 01/24/22 01/24/22 01/23/22 05:22 05:22 23:11 WBC 3.7 L RBC 3.60 L Hgb 11.7 L Hct 33.0 L MCV 91.7 MCH 32.5 MCHC 35.5 RDW 12.0 Plt Count 151 MPV 9.4 Immature Gran % (Auto) 0.5 Neut % (Auto) 49.8 Lymph % (Auto) 34.2 [place] % (Auto) 10.6 H Eos % (Auto) 4.1 Baso % (Auto) 0.8 Lymph # (Auto) 1.26 [place] # (Auto) 0.4 Eos # (Auto) 0.2 Baso # (Auto) 0.0 Abs Immat Gran (auto) 0.02 Absolute Neuts (auto) 1.8 Absolute Nucleated RBC 0.0 Nucleated RBC % 0.0 Sodium 138 Potassium 4.0 Chloride 108 H Carbon Dioxide 24 Anion Gap 6 L BUN 25 H Creatinine 1.40 H Estim Creat Clear Calc 61 Estimated GFR 52 L Glucose 167 H POC Capillary Glucose 223 H Calcium 8.0 L Magnesium 1.8 Total Bilirubin 0.7 AST 24 ALT 20 Alkaline Phosphatase 50 Total Protein 6.0 L Albumin 3.7 Discharge Plan Discharge Attending physician on discharge: Luis A Gunderson Consulting providers: Sabiha Mckeon Discharging Clinician: Luis A Gunderson Anticipated Discharge Date/Time: 01/24/22 18:04 Patient Disposition: Home, Self-Care Activity: as tolerated Diet: heart healthy and diabetic Discharge Instructions: Please avoid large gather
== END 2022-01-24 19:00 | disposition home or self-care (01) | DRG 682 ==
LOC: ANHED 16:32 → ANH3MED 18:47
PROVIDERS: Nurse Practitioner Adult Health; Admitting Provider Chiropractor; Emergency Provider Nurse Practitioner Family; Visit Provider Internal Medicine
DX: N17.9 Acute kidney failure, unspecified (principal); U07.1 COVID-19; E11.65 Type 2 diabetes mellitus with hyperglycemia; I12.9 Hypertensive chronic kidney disease with stage 1 through stage 4 chronic kidney disease, or unspecified chronic kidney disease; E11.22 Type 2 diabetes mellitus with diabetic chronic kidney disease; M21.372 Foot drop, left foot; M17.11 Unilateral primary osteoarthritis, right knee; I25.10 Atherosclerotic heart disease of native coronary artery without angina pectoris; N18.31 Chronic kidney disease, stage 3a; E11.42 Type 2 diabetes mellitus with diabetic polyneuropathy; M06.9 Rheumatoid arthritis, unspecified; D64.9 Anemia, unspecified; Z89.511 Acquired absence of right leg below knee; Z86.73 Personal history of transient ischemic attack (TIA), and cerebral infarction without residual deficits; Z87.891 Personal history of nicotine dependence
CPT/HCPCS: 36415; 71045; 80053; 82948; 83605; 83690; 83735; 84484; 85025; A9270; J1644; J1815; J7030